=== PATIENT | female | born 1935 | race Caucasian/White ===

== ENCOUNTER 2016-09-15 01:11 | Inpatient (IN) | payer MEDICARE, OTHER ==
[2016-09-15 01:11] VITALS: BMI 25.0
[2016-09-15] MEDS ORDERED: Nitroglycerin 2% Ointment Foilpak UD TOP ONE (01:18)
--- NOTE | 2016-09-15 01:21 | C.PDOC ---
History Of Present Illness pt was brought in acute respiratory distress by bls , as no acls were available. patient diaphoretic, unable to provide any history. Time Seen by Provider: 09/15/16 01:21 History Per: Family History/Exam Limitations: clinical condition Onset/Duration Of Symptoms: Hrs Current Symptoms Are (Timing): Worse Initiating Event: Other Exacerbating Factor(s): Exertion, Laying Flat Current Respiratory Medications: See Home Med List Severity: Severe Pain Scale Rating Of: 10 Associated Symptoms: Anxiety. denies: Fever, Chills Reports Recently: Seen In ED, Treated By A Physician, Hospitalized Recent travel outside of the [place]: No Additional History Per: EMS, Family Past Medical History Reviewed: Historical Data, Nursing Documentation, Vital Signs Vital Signs: Last Vital Signs Temp Pulse 95 H 09/15/16 01:26 Resp 36 H 09/15/16 01:26 BP 214/84 H 09/15/16 01:26 Pulse Ox 86 L 09/15/16 01:26 - Medical History PMH: CHF, COPD, HTN Family History: States: No Known Family Hx - Social History Hx Alcohol Use: No Hx Substance Use: No Review Of Systems Review Of Systems: ROS cannot be obtained secondary to pt's inabilty to answer questions. Physical Exam - Physical Exam Appears: In Acute Distress Skin: Diaphoretic Head: Normacephalic Nose: Flaring Oral Mucosa: Moist Neck: Other (jvd) Chest: Deformity (left mastectomy scar) Cardiovascular: Rhythm Regular Respiratory: Decreased Breath Sounds, Rales (thruout) Gastrointestinal/Abdominal: Soft, No Tenderness, Distention Back: Normal Inspection Extremity: Pedal Edema Extremity: Bilateral: Atraumatic Neurological/Psych: Other (on bipap , in acute respiratory distress, unable to answer) Gait: Unable To Assess ED Course And Treatment - Laboratory Results Result Diagrams: 09/15/16 02:21 09/15/16 02:21 ECG: Interpreted By Me, Viewed By Me ECG Rhythm: Atrial Fibrillation, Nonspecific Changes Pulse Ox Interpretation: Abnormal (pt intubated) - Radiology CXR: Interpreted by Me, Viewed By Me CXR Interpretation: Yes: Infiltrates, Cardiomegaly, Other (acute pulm edema. poss rll infiltrate. ett in proper positionas is ng tube) Progress Note: due to her respiratory distress, pt was intubated, labs sent. family at bedside. spoke with dr swan - will admit the pt Critical Care Time - Critical Care Note Total Time (in mins): 45 Documented critical care: time excludes all time spent performing seperately billable procedures. Endotracheal Intubation - Endotracheal Intubation Intubated With ETT Size: 75 Blade Type Used: Curved Indication: Respiratory Failure Intubated: Orally Pre-Intubation Airway Assessment: Ventilated And Oxygenated, Appears To Have A difficult Airway Paralyzed With: Succinylcholine Post-Intubation Assessment: ETT Secured AT (cm): (24), Breath Sounds Equal Bilat , Placement Confirmed Via CXR, Color Change W/End Tidal CO2 Detector, Oxygen Saturation: (97) Disposition Discussed With Dr.: Derrick Jarvis Comment: accepted the pt on his service and took over the care at 3:06AM Doctor Will See Patient In The: ED Counseled Patient/Family Regarding: Studies Performed, Diagnosis - Disposition Disposition: HOSPITALIZED Disposition Time: 01:21 Condition: CRITICAL - POA Present On Arrival: Poor Glycemic Control - Clinical Impression Clinical Impression: Acute pulmonary edema, Respiratory failure Decision To Admit - Pt Status Changed To: Hospital Disposition Of: Inpatient - Admit Certification Admit to Inpatient:: After my assessment, the patient will require hospitalization for at least two midnights. This is because of the severity of symptoms shown, intensity of services needed, and/or the medical risk in this patient being treated as an outpatient. - InPatient: Physician Admission Certification: I certify that this patient requires 2 or more midnights of care for the following reason:: After my assessment, the patient will require hospitalization for at least two midnights. This is because of the severity of symptoms shown, intensity of services needed, and/or the medical risk in this patient being treated as an outpatient. - . Bed Request Type: ICU Admitting Physician: Derrick Jarvis Patient Diagnosis: Acute pulmonary edema, Respiratory failure
[2016-09-15] MEDS ORDERED: Propofol 10 mg/ml Inj (20 ML) ONE ×2 (01:22→03:17)
[2016-09-15] MEDS ORDERED: Nitroglycerin 2% Ointment Foilpak UD TOP STA (01:46)
[2016-09-15] MEDS ORDERED: Propofol 10 mg/ml Inj (20 ML) IV ONE ×3 (01:49→04:40)
[2016-09-15] MEDS ORDERED: Succinylcholine Chloride 20 mg/ml Syr (5 ml) IV STA (01:49)
[2016-09-15] MEDS: Albuterol-Ipratrop 3 mg / 0.5 (3 ml) UD IH SCH ×3 (02:00→02:38)
[2016-09-15] MEDS ORDERED: Albuterol-Ipratrop 3 mg / 0.5 (3 ml) UD ONE (02:09)
[2016-09-15] MEDS ORDERED: Piperacillin/Tazobact 3.375 gm 100 ML IVPB STA (02:27)
[2016-09-15 02:35] LABS: CHLORIDE 100 mmol/L (98-107)
[2016-09-15 02:36] LABS: POTASSIUM 4.1 mmol/L (3.6-5.2); SODIUM 140 mmol/L (132-148)
[2016-09-15 02:38] LABS: ALB/GLOB RATIO 1.3 (1.0-2.1); BILIRUBIN,TOTAL 0.4 mg/dL (0.2-1.3); CARBON DIOXIDE 20 mmol/L (22-30); GFR AFRICAN-AMERICAN 41
[2016-09-15 02:39] LABS: ALKALINE PHOSPHATASE 81 U/L (38-126); ALT/SGPT 15 U/L (9-52); AST/SGOT 26 U/L (14-36); BLOOD UREA NITROGEN 23 mg/dL (7-17); CALCIUM 9.1 mg/dl (8.6-10.4); GLUCOSE,RANDOM 275 mg/dL (65-105); MAGNESIUM 2.5 mg/dL (1.6-2.3)
[2016-09-15 02:45] LABS: BASO % 0.2 % (0.0-2.0); EOS # 0.2 K/uL (0.0-0.7); EOS % 2.3 % (0.0-4.0); HEMATOCRIT 40.8 % (34.0-47.0); LYMPH # 5.8 K/uL (1.0-4.3); LYMPH % 53.5 % (20.0-40.0); MEAN CORPUSCULAR HEMOGLOBIN 30.8 pg (27.0-31.0); MEAN CORPUSCULAR HGB CONC 31.5 g/dL (33.0-37.0); MEAN PLATELET VOLUME 10.2 fL (7.2-11.7); MONO # 0.6 K/uL (0.0-0.8); NRBC % 0.1 % (0.0-2.0); RED CELL DISTRIBUTION WIDTH 14.5 % (11.5-14.5)
[2016-09-15 02:46] LABS: MEAN CELL VOLUME 97.7 fL (81.0-99.0); WHITE BLOOD COUNT 10.8 K/uL (4.8-10.8)
[2016-09-15 02:58] LABS: ABG ALLEN TEST POS; ABG MECHANICAL RATE 16; ATERIAL BLOOD GAS PEEP 5; DRAW SITE RR
[2016-09-15 05:26] LABS: RBC URINE 7 /hpf (0-3); URINE BILIRUBIN NEGATIVE (NEGATIVE); URINE BLOOD 1+ (NEGATIVE); URINE COLOR Straw (YELLOW); URINE GLUCOSE (UA) NORMAL (Normal); URINE KETONE NEGATIVE (NEGATIVE); URINE LEUKOCYTE ESTERASE NEG Leu/uL (Negative); URINE PROTEIN NEGATIVE (NEGATIVE); URINE UROBILINOGEN NORMAL mg/dL (0.2-1.0); WBC URINE < 1 /hpf (0-5)
[2016-09-15] MEDS: Propofol 10 mg/ml Inj (100 ml) IV SCH ×2 (06:00→18:33)
[2016-09-15 06:48] LABS: BASO % 0.2 % (0.0-2.0); EOS % 0.2 % (0.0-4.0); HEMATOCRIT 38.4 % (34.0-47.0); LYMPH # 0.9 K/uL (1.0-4.3); LYMPH % 9.2 % (20.0-40.0); MEAN CELL VOLUME 94.2 fL (81.0-99.0); MEAN CORPUSCULAR HEMOGLOBIN 30.6 pg (27.0-31.0); MEAN CORPUSCULAR HGB CONC 32.5 g/dL (33.0-37.0); MEAN PLATELET VOLUME 9.7 fL (7.2-11.7); MONO # 0.4 K/uL (0.0-0.8); MONO % 3.7 % (0.0-10.0); PLATELET COUNT 209 K/uL (130-400); RED CELL DISTRIBUTION WIDTH 13.8 % (11.5-14.5)
[2016-09-15 06:54] LABS: POTASSIUM 4.5 mmol/L (3.6-5.2)
[2016-09-15 06:57] LABS: ALB/GLOB RATIO 1.3 (1.0-2.1); BILIRUBIN,TOTAL 0.4 mg/dL (0.2-1.3); MAGNESIUM 1.9 mg/dL (1.6-2.3); PHOSPHOROUS 5.2 mg/dL (2.5-4.5)
[2016-09-15 07:11] LABS: TROPONIN I 0.234 ng/mL (0.00-0.120)
[2016-09-15] MEDS ORDERED: (Novolog) Insulin Aspart, Recombinant 100 u/ml 10 ml vial SC SCH ×2 (07:30→09:31)
--- NOTE | 2016-09-15 08:45 | CP.PCM.CON ---
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 History is completed using EMR, as pt is intubated and no family is at bedside. According to EMS reports, family at scene reported pt awoke from sleep c/o of worsening SOB and inability to lie flat over 'last few days.' EMS notes pt with O2 saturation of 70%, systolic BP > 200, and wheezes/ rhonchi bilaterally. Pt was placed on CPAP by EMS and saturation improved to low 80s. Pt was intubated in the ED. PMH: Stroke (2003), Breast Ca (2013), HTN, DM, HLD, GERD, CHF Meds: Losartan 50mg, Meformin 850mg, Plavix 75mg, Letrozole 2.5mg (Breast CA), Omeprazole 20mg, Rosuvastatin 5mg, Carvedilol 10mg PSH: L mastectomy (2013) Hosp: 04/02: CHF FamHx: unremarkable SocHx: denies tob currently, former smoker (quit 30 yrs ago)/denies EtOH/ilicit drug use Review of Systems - Review of Systems Systems not reviewed;Unavailable: Altered Mental Status, Intubated Past Patient History - Past Medical History & Family History Past Medical History?: Yes - Past Social History Smoking Status: Former Smoker - CARDIAC Hx Cardiac Disorders: Yes Hx Congestive Heart Failure: Yes Hx Hypercholesterolemia: Yes Hx Hypertension: Yes - PULMONARY Hx Chronic Obstructive Pulmonary Disease (COPD): Yes - NEUROLOGICAL Hx Neurological Disorder: Yes HX Cerebrovascular Accident: Yes (2003 with L sided weakness) - HEENT Hx HEENT Problems: Yes Other/Comment: wears glasses for reading - ENDOCRINE/METABOLIC Hx Endocrine Disorders: Yes Hx Diabetes Mellitus Type 2: Yes - HEMATOLOGICAL/ONCOLOGICAL Hx Blood Disorders: No - INTEGUMENTARY Hx Dermatological Problems: No - MUSCULOSKELETAL/RHEUMATOLOGICAL Hx Musculoskeletal Disorders: Yes Hx Falls: Yes - GASTROINTESTINAL Hx Gastrointestinal Disorders: No - GENITOURINARY/GYNECOLOGICAL Hx Genitourinary Disorders: Yes Hx Incontinence: Yes - PSYCHIATRIC Hx Psychophysiologic Disorder: No Hx Substance Use: No - SURGICAL HISTORY Hx Surgeries: Yes Hx Mastectomy: Yes (2016) Other/Comment: R breast mastectomy - ANESTHESIA Hx Anesthesia: Yes Hx Anesthesia Reactions: No Hx Malignant Hyperthermia: No Has any member of the family had a problem w/ anesthesia?: No Meds Allergies/Adverse Reactions: Allergies Allergy/AdvReac Type Severity Reaction Status Date / Time No Known Allergies Allergy Verified 03/27/16 10:04 - Medications Medications: Current Medications Aspirin (Aspirin Chewable) 81 mg NG DAILY [facility] Carvedilol (Coreg) 3.125 mg NG DAILY [facility] Clopidogrel Bisulfate (Plavix) 75 mg NG DAILY [facility] Enoxaparin Sodium (Lovenox) 40 mg SC DAILY [facility] Famotidine (Pepcid) 20 mg IVP Q12 [facility] Furosemide (Lasix) 40 mg IVP DAILY [facility] Insulin Aspart (Novolog) 0 unit SC ACHS [facility] PRN Reason: Protocol Losartan Potassium (Cozaar) 50 mg PO DAILY [facility] Propofol (Diprivan) 100 mg IV TITR [facility] PRN Reason: Protocol Last Admin: 09/15/16 06:00 Dose: 100 mg Rosuvastatin Calcium (Crestor) 5 mg NG HS [facility] Spironolactone (Aldactone) 25 mg NG DAILY [facility] Physical Exam - Constitutional Appears: Chronically Ill - Head Exam Head Exam: ATRAUMATIC, NORMAL INSPECTION, NORMOCEPHALIC - Eye Exam Eye Exam: Normal appearance Pupil Exam: PERRL - ENT Exam ENT Exam: Mucous Membranes Moist - Neck Exam Neck exam: Positive for: Normal Inspection - Respiratory Exam Respiratory Exam: Decreased Breath Sounds, Rales. absent: Clear to Auscultation Bilateral, Wheezes, Respiratory Distress Additional comments: pt intubated - Cardiovascular Exam Cardiovascular Exam: REGULAR RHYTHM, JVD, +S1, +S2, Systolic Murmur - GI/Abdominal Exam GI & Abdominal Exam: Normal Bowel Sounds, Soft - Extremities Exam Extremities exam: Positive for: normal inspection, pedal pulses present - Neurological Exam Neurological exam: Alert Additional comments: pt intubated - Psychiatric Exam Psychiatric exam: Normal Affect - Skin Skin Exam: Dry, Normal Color, Warm Results - Vital Signs Recent Vital Signs: Last Vital Signs Temp 98.1 F 09/15/16 05:15 Pulse 76 09/15/16 08:10 Resp 18 09/15/16 08:10 BP 113/73 09/15/16 08:01 Pulse Ox 100 09/15/16 08:10 - Labs Result Diagrams: 09/15/16 06:32 09/15/16 06:33 Labs: Laboratory Results - last 24 hr 09/15/16 09/15/16 09/15/16 05:14 06:32 06:33 WBC 10.0 RBC 4.08 Hgb 12.5 Hct 38.4 MCV 94.2 D MCH 30.6 MCHC 32.5 L RDW 13.8 Plt Count 209 MPV 9.7 Neut % (Auto) 86.7 H Lymph % (Auto) 9.2 L Valencia % (Auto) 3.7 Eos % (Auto) 0.2 Baso % (Auto) 0.2 Neut # 8.7 H Lymph # 0.9 L Valencia # 0.4 Eos # 0.0 Baso # 0.0 Sodium 137 Potassium 4.5 Chloride 99 Carbon Dioxide 26 Anion Gap 16 BUN 31 H Creatinine 1.4 H Est GFR ( Amer) 44 Est GFR (Non-Af Amer) 36 Random Glucose 223 H Calcium 8.0 L Phosphorus 5.2 H Magnesium 1.9 Total Bilirubin 0.4 AST 53 H D ALT 31 Alkaline Phosphatase 77 Troponin I 0.2340 H* Total Protein 7.0 Albumin 4.0 Globulin 3.1 Albumin/Globulin Ratio 1.3 Urine Color Straw Urine Clarity Hazy Urine pH 5.0 Ur Specific Kimberly 1.006 Urine Protein Negative Urine Glucose (UA) Normal Urine Ketones Negative Urine Blood 1+ H Urine Nitrate Negative Urine Bilirubin Negative Urine Urobilinogen Normal Ur Leukocyte Esterase Neg Urine WBC (Auto) < 1 Urine RBC (Auto) 7 H Ur Squamous Epith Cells 1 Assessment & Plan - Assessment and Plan (Free Text) Assessment: 81 yo F with PMHx of HTN, DM, hyperlipidemia, CVA 2003, Breast cancer 2013 ( Left mastectomy) presenting with worsening shortness of breath. Pt intubated in ED. Plan: Neuro: Pt intubated and sedated - Propofol drip Hx of stroke ASA 81mg NG Daily Plavix 75mg NG Daily CV: Dr. Loya, Cardiology, help appreciated: - Stress test 01/2016: Showed normal perfusion with reduction in LVEF 43% : susicious for NICM - OPDX ECHO (05/2016): EF 35-40% - EKG read by Dr. Loya (NSR, competing PACs and junctional escapes) - Acute on chronic systolic HF, minimal inc in troponin may result from cardiomyopathy, as 01/2016 stress perfusion scan was normal - May consider AICD if LVEF <35% BNP: 2280 (previous admission: 4060) Troponin: 0.012 > 0.2340 - f/u ECHO Lasix 40mg IV daily Aldactone 25mg NG daily HTN Pt has been hypo/normotensive since admission Coreg 3.125mg NG Daily Cozaar 50mg PO Daily CAD ASA 81mg NG Daily Plavix 75mg NG Daily Crestor 5 mg NG HS Pulm: Worsening SOB, inability to lie flat x 3 days CXR (09/15/16): worsening, now severe, airspace opacification within the right lung with milder increased interstitial lung markings in the left lung, which may represent worsening edema and/or infiltrate. CT Chest (09/15/16): f/u results - f/u atypicals: chlamydia/GC RNA, Mycoplasma - f/u blood cultures Zosyn 2.25gm IV Q8H Acute respiratory failure Intubated, on MV Vent settings: Rate 16, FiO2: 60%, Peep: 5, TV 500 Endo: T2DM - accuchecks ACHS - ISS (low) - f/u A1C GI: NGT placed Tubefeedings: Diabetisource, Goal 50ml/hr Minimal increase in AST - monitor Renal/: CKD stage III BUN/Cr 17/06.4 - monitor Hyperphosphatemia - 5.2 on AM labs - Start Phos-lo ID: No leukocytosis, Afebrile Prophylaxis: Lovenox 40mg SC Daily Pepcid 20mg IV Q12H SCDs PT/OT <Yoel Branham S - Last Filed: 09/15/16 18:51> Meds - Medications Medications: Current Medications Aspirin (Aspirin Chewable) 81 mg NG DAILY [facility] Last Admin: 09/15/16 09:34 Dose: 81 mg Calcium Acetate (Phoslo) 667 mg PO BIDCC [facility] Last Admin: 09/15/16 18:02 Dose: 667 mg Carvedilol (Coreg) 3.125 mg NG DAILY [facility] Last Admin: 09/15/16 09:34 Dose: 3.125 mg Clopidogrel Bisulfate (Plavix) 75 mg NG DAILY [facility] Last Admin: 09/15/16 09:34 Dose: 75 mg Enoxaparin Sodium (Lovenox) 40 mg SC DAILY [facility] Last Admin: 09/15/16 09:34 Dose: 40 mg Famotidine (Pepcid) 20 mg IVP Q12 [facility] Last Admin: 09/15/16 11:00 Dose: 20 mg Furosemide (Lasix) 40 mg IVP DAILY [facility] Last Admin: 09/15/16 11:00 Dose: 40 mg Piperacillin Sod/Tazobactam Sod (Zosyn 2.25 Gm Iv Premix) 2.25 gm in 50 mls @ 100 mls/hr IVPB Q8H [facility] Last Admin: 09/15/16 18:30 Dose: 100 mls/hr Propofol (Diprivan) 1,000 mg in 100 mls @ 2.204 mls/hr IV .Q24H PRN; Protocol; 5 MCG/KG/MIN PRN Reason: TITRATE PER MD ORDER Insulin Aspart (Novolog) 0 unit SC Q6H [facility] PRN Reason: Protocol Last Admin: 09/15/16 18:01 Dose: 1 unit Losartan Potassium (Cozaar) 50 mg PO DAILY [facility] Last Admin: 09/15/16 09:34 Dose: 50 mg Rosuvastatin Calcium (Crestor) 5 mg NG HS [facility] Spironolactone (Aldactone) 25 mg NG DAILY [facility] Last Admin: 09/15/16 18:01 Dose: 25 mg Results - Vital Signs Recent Vital Signs: Last Vital Signs Temp 98.1 F 09/15/16 16:00 Pulse 69 09/15/16 17:00 Resp 19 09/15/16 17:00 BP 92/59 L 09/15/16 17:00 Pulse Ox 100 09/15/16 17:00 - Labs Result Diagrams: 09/15/16 06:32 09/15/16 06:33 Labs: Laboratory Results - last 24 hr 09/15/16 09/15/16 09/15/16 05:14 06:32 06:33 WBC 10.0 RBC 4.08 Hgb 12.5 Hct 38.4 MCV 94.2 D MCH 30.6 MCHC 32.5 L RDW 13.8 Plt Count 209 MPV 9.7 Neut % (Auto) 86.7 H Lymph % (Auto) 9.2 L Valencia % (Auto) 3.7 Eos % (Auto) 0.2 Baso % (Auto) 0.2 Neut # 8.7 H Lymph # 0.9 L Valencia # 0.4 Eos # 0.0 Baso # 0.0 Neutrophils % (Manual) 80 H Band Neutrophils % 6 H Lymphocytes % (Manual) 10 L Monocytes % (Manual) 4 Platelet Estimate Normal Polychromasia Slight Ovalocytes Slight Puncture Site pCO2 pO2 HCO3 ABG pH ABG Total CO2 ABG O2 Saturation ABG Base Excess ABG Hemoglobin ABG Carboxyhemoglobin POC ABG HHb (Measured) ABG Methemoglobin Onofre Test A-a O2 Difference Respiratory Index Hgb O2 Saturation Mechanical Rate FiO2 Tidal Volume PEEP Sodium 137 Potassium 4.5 Chloride 99 Carbon Dioxide 26 Anion Gap 16 BUN 31 H Creatinine 1.4 H Est GFR ( Amer) 44 Est GFR (Non-Af Amer) 36 POC Glucose (mg/dL) Random Glucose 223 H Calcium 8.0 L Phosphorus 5.2 H Magnesium 1.9 Total Bilirubin 0.4 AST 53 H D ALT 31 Alkaline Phosphatase 77 Troponin I 0.2340 H* Total Protein 7.0 Albumin 4.0 Globulin 3.1 Albumin/Globulin Ratio 1.3 Urine Color Straw Urine Clarity Hazy Urine pH 5.0 Ur Specific Kimberly 1.006 Urine Protein Negative Urine Glucose (UA) Normal Urine Ketones Negative Urine Blood 1+ H Urine Nitrate Negative Urine Bilirubin Negative Urine Urobilinogen Normal Ur Leukocyte Esterase Neg Urine WBC (Auto) < 1 Urine RBC (Auto) 7 H Ur Squamous Epith Cells 1 09/15/16 09/15/16 09/15/16 08:18 12:35 12:46 WBC RBC Hgb Hct MCV MCH MCHC RDW Plt Count MPV Neut % (Auto) Lymph % (Auto) Valencia % (Auto) Eos % (Auto) Baso % (Auto) Neut # Lymph # Valencia # Eos # Baso # Neutrophils % (Manual) Band Neutrophils % Lymphocytes % (Manual) Monocytes % (Manual) Platelet Estimate Polychromasia Ovalocytes Puncture Site Rra pCO2 40 pO2 251 H HCO3 25.9 ABG pH 7.42 ABG Total CO2 27.1 ABG O2 Saturation 99.0 H ABG Base Excess 1.3 ABG Hemoglobin 11.0 L ABG Carboxyhemoglobin 0.7 POC ABG HHb (Measured) 1.0 ABG Methemoglobin 1.4 Onofre Test Na A-a O2 Difference 412.0 Respiratory Index 1.6 Hgb O2 Saturation 96.8 Mechanical Rate 16 FiO2 100.0 Tidal Volume 500 PEEP 5 Sodium Potassium Chloride Carbon Dioxide Anion Gap BUN Creatinine Est GFR ( Amer) Est GFR (Non-Af Amer) POC Glucose (mg/dL) 200 H 183 H Random Glucose Calcium Phosphorus Magnesium Total Bilirubin AST ALT Alkaline Phosphatase Troponin I Total Protein Albumin Globulin Albumin/Globulin Ratio Urine Color Urine Clarity Urine pH Ur Specific Kimberly Urine Protein Urine Glucose (UA) Urine Ketones Urine Blood Urine Nitrate Urine Bilirubin Urine Urobilinogen Ur Leukocyte Esterase Urine WBC (Auto) Urine RBC (Auto) Ur Squamous Epith Cells 09/15/16 17:40 WBC RBC Hgb Hct MCV MCH MCHC RDW Plt Count MPV Neut % (Auto) Lymph % (Auto) Valencia % (Auto) Eos % (Auto) Baso % (Auto) Neut # Lymph # Valencia # Eos # Baso # Neutrophils % (Manual) Band Neutrophils % Lymphocytes % (Manual) Monocytes % (Manual) Platelet Estimate Polychromasia Ovalocytes Puncture Site pCO2 pO2 HCO3 ABG pH ABG Total CO2 ABG O2 Saturation ABG Base Excess ABG Hemoglobin ABG Carboxyhemoglobin POC ABG HHb (Measured) ABG Methemoglobin Onofre Test A-a O2 Difference Respiratory Index Hgb O2 Saturation Mechanical Rate FiO2 Tidal Volume PEEP Sodium Potassium Chloride Carbon Dioxide Anion Gap BUN Creatinine Est GFR ( Amer) Est GFR (Non-Af Amer) POC Glucose (mg/dL) 182 H Random Glucose Calcium Phosphorus Magnesium Total Bilirubin AST ALT Alkaline Phosphatase Troponin I Total Protein Albumin Globulin Albumin/Globulin Ratio Urine Color Urine Clarity Urine pH Ur Specific Kimberly Urine Protein Urine Glucose (UA) Urine Ketones Urine Blood Urine Nitrate Urine Bilirubin Urine Urobilinogen Ur Leukocyte Esterase Urine WBC (Auto) Urine RBC (Auto) Ur Squamous Epith Cells Attending/Attestation - Attestation I have personally seen and examined this patient.: Yes I have fully participated in the care of the patient.: Yes I have reviewed all pertinent clinical information: Yes Notes (Text): 09/15/16 18:47 Patient seen and examined. 81 yo F with PMHx of HTN, DM, hyperlipidemia, CVA 2003, Breast cancer 2013 ( Left mastectomy) presenting with worsening shortness of breath. Pt intubated in ED for CHF and possible right lung pneumonia Patient seen by cardiology Started on antibiotics and follow up culture and sensitivity Continue IV diuretics Start weaning from tomorrow
--- NOTE | 2016-09-15 09:05 | RAD ---
PROCEDURE: CHEST RADIOGRAPH, 1 VIEW HISTORY: Shortness of breath COMPARISON: 04/01/2016 FINDINGS: LUNGS: Endotracheal tube extending into the midthoracic trachea. NG tube extending into the stomach. Worsening now severe airspace opacification within the right lung with milder increased interstitial lung markings in the left lung which may represent worsening edema and or infiltrate. Clinical correlation. PLEURA: As above. CARDIOVASCULAR: Cardiomegaly. Calcification at the aortic knob. OSSEOUS STRUCTURES: No significant abnormalities. VISUALIZED UPPER ABDOMEN: Normal. OTHER FINDINGS: None. IMPRESSION: Endotracheal tube extending into the midthoracic trachea. NG tube extending into the stomach. Worsening now severe airspace opacification within the right lung with milder increased interstitial lung markings in the left lung which may represent worsening edema and or infiltrate. Clinical correlation.
[2016-09-15 09:15] LABS: NEUTROPHIL 80 % (50-75); TOTAL CELLS COUNTED 100
[2016-09-15] MEDS: Enoxaparin 40 mg Syringe SC SCH (09:34)
[2016-09-15] MEDS: Piperacill/Tazo 2.25gm in Dex 2.25 GM/50 ML BAG IVPB SCH ×2 (12:00→18:30)
[2016-09-15] MEDS: (Novolog) Insulin Aspart, Recombinant 100 u/ml 10 ml vial SC SCH ×2 (12:00→18:01)
--- NOTE | 2016-09-15 12:07 | RAD ---
PROCEDURE: CHEST RADIOGRAPH, 1 VIEW HISTORY: RESPIRATORY FAILURE COMPARISON: 09/15/2016 FINDINGS: LUNGS: Lines and tubes stable position. Persistent diffuse consolidative changes throughout the right lung and to a lesser extent the left lung suggestive for prominent edema and or infiltrate. PLEURA: As above. CARDIOVASCULAR: Cardiomegaly. Calcification at the aortic knob. OSSEOUS STRUCTURES: Degenerative changes in the spine and shoulders. VISUALIZED UPPER ABDOMEN: Normal. OTHER FINDINGS: None. IMPRESSION: No significant interval change.
--- NOTE | 2016-09-15 12:29 | CP.PCM.CON ---
History of Present Illness - History of Present Illness History of Present Illness: 81 y/o BIB EMS: acute pulmonary edema and intubated in ER. PMHX; CVA- L. sided weakness, HTN, DM, poor functional capacity (minimally active) last seen in office 08/05/16 with c/o SOB. Out patient echo had been reported as 35-40% 06/03/16 and CHF therapy was being optimized at the time. Stress test 01/2016: Showed normal perfusion with reduction in LVEF 43% : susicious for NICM PSHX: mastectomy, No CABG PSH: L mastectomy (2013) Hosp: no prior [facility] hospitalizations FamHx: unremarkable SocHx: denies tob currently, former smoker (quit 30 yrs ago)/denies EtOH/ilicit drug use Review of Systems - Review of Systems Systems not reviewed;Unavailable: Intubated Past Patient History - Past Medical History & Family History Past Medical History?: Yes - Past Social History Smoking Status: Never Smoked - CARDIAC Hx Cardiac Disorders: Yes Hx Congestive Heart Failure: Yes Hx Hypercholesterolemia: Yes Hx Hypertension: Yes - PULMONARY Hx Chronic Obstructive Pulmonary Disease (COPD): Yes - NEUROLOGICAL Hx Neurological Disorder: Yes HX Cerebrovascular Accident: Yes (2003 with L sided weakness) - HEENT Hx HEENT Problems: Yes Other/Comment: wears glasses for reading - ENDOCRINE/METABOLIC Hx Endocrine Disorders: Yes Hx Diabetes Mellitus Type 2: Yes - HEMATOLOGICAL/ONCOLOGICAL Hx Blood Disorders: No - INTEGUMENTARY Hx Dermatological Problems: No - MUSCULOSKELETAL/RHEUMATOLOGICAL Hx Musculoskeletal Disorders: Yes Hx Falls: Yes - GASTROINTESTINAL Hx Gastrointestinal Disorders: No - GENITOURINARY/GYNECOLOGICAL Hx Genitourinary Disorders: Yes Hx Incontinence: Yes - PSYCHIATRIC Hx Psychophysiologic Disorder: No Hx Substance Use: No - SURGICAL HISTORY Hx Surgeries: Yes Hx Mastectomy: Yes (2015) Other/Comment: R breast mastectomy - ANESTHESIA Hx Anesthesia: Yes Hx Anesthesia Reactions: No Hx Malignant Hyperthermia: No Has any member of the family had a problem w/ anesthesia?: No Meds Allergies/Adverse Reactions: Allergies Allergy/AdvReac Type Severity Reaction Status Date / Time No Known Allergies Allergy Verified 03/27/16 10:04 - Medications Medications: Current Medications Aspirin (Aspirin Chewable) 81 mg NG DAILY [facility] Last Admin: 09/15/16 09:34 Dose: 81 mg Carvedilol (Coreg) 3.125 mg NG DAILY [facility] Last Admin: 09/15/16 09:34 Dose: 3.125 mg Clopidogrel Bisulfate (Plavix) 75 mg NG DAILY [facility] Last Admin: 09/15/16 09:34 Dose: 75 mg Enoxaparin Sodium (Lovenox) 40 mg SC DAILY [facility] Last Admin: 09/15/16 09:34 Dose: 40 mg Famotidine (Pepcid) 20 mg IVP Q12 [facility] Furosemide (Lasix) 40 mg IVP DAILY [facility] Piperacillin Sod/Tazobactam Sod (Zosyn 2.25 Gm Iv Premix) 2.25 gm in 50 mls @ 100 mls/hr IVPB Q8H [facility] Insulin Aspart (Novolog) 0 unit SC Q6H [facility] PRN Reason: Protocol Losartan Potassium (Cozaar) 50 mg PO DAILY [facility] Last Admin: 09/15/16 09:34 Dose: 50 mg Propofol (Diprivan) 100 mg IV TITR [facility] PRN Reason: Protocol Last Admin: 09/15/16 06:00 Dose: 100 mg Rosuvastatin Calcium (Crestor) 5 mg NG HS [facility] Spironolactone (Aldactone) 25 mg NG DAILY [facility] Physical Exam - Constitutional Appears: Chronically Ill - Head Exam Head Exam: ATRAUMATIC, NORMAL INSPECTION, NORMOCEPHALIC - Eye Exam Eye Exam: Normal appearance, PERRL - Neck Exam Neck exam: Negative for: Tenderness, Thyromegaly - Respiratory Exam Respiratory Exam: Decreased Breath Sounds, Rales. absent: Wheezes - Cardiovascular Exam Cardiovascular Exam: REGULAR RHYTHM, JVD, RRR, +S1, +S2, Systolic Murmur. absent: Gallop - GI/Abdominal Exam GI & Abdominal Exam: Normal Bowel Sounds, Soft. absent: Organomegaly - Extremities Exam Extremities exam: Positive for: normal inspection, pedal pulses present. Negative for: pedal edema - Skin Skin Exam: Normal Color, Warm Results - Vital Signs Recent Vital Signs: Last Vital Signs Temp 98.9 F 09/15/16 08:00 Pulse 74 09/15/16 11:00 Resp 18 09/15/16 11:00 BP 111/69 09/15/16 11:00 Pulse Ox 100 09/15/16 11:00 - Labs Result Diagrams: 09/15/16 06:32 09/15/16 06:33 Labs: Laboratory Results - last 24 hr 09/15/16 09/15/16 09/15/16 05:14 06:32 06:33 WBC 10.0 RBC 4.08 Hgb 12.5 Hct 38.4 MCV 94.2 D MCH 30.6 MCHC 32.5 L RDW 13.8 Plt Count 209 MPV 9.7 Neut % (Auto) 86.7 H Lymph % (Auto) 9.2 L [place] % (Auto) 3.7 Eos % (Auto) 0.2 Baso % (Auto) 0.2 Neut # 8.7 H Lymph # 0.9 L [place] # 0.4 Eos # 0.0 Baso # 0.0 Neutrophils % (Manual) 80 H Band Neutrophils % 6 H Lymphocytes % (Manual) 10 L Monocytes % (Manual) 4 Platelet Estimate Normal Polychromasia Slight Ovalocytes Slight Sodium 137 Potassium 4.5 Chloride 99 Carbon Dioxide 26 Anion Gap 16 BUN 31 H Creatinine 1.4 H Est GFR ( Amer) 44 Est GFR (Non-Af Amer) 36 POC Glucose (mg/dL) Random Glucose 223 H Calcium 8.0 L Phosphorus 5.2 H Magnesium 1.9 Total Bilirubin 0.4 AST 53 H D ALT 31 Alkaline Phosphatase 77 Troponin I 0.2340 H* Total Protein 7.0 Albumin 4.0 Globulin 3.1 Albumin/Globulin Ratio 1.3 Urine Color Straw Urine Clarity Hazy Urine pH 5.0 Ur Specific [place] 1.006 Urine Protein Negative Urine Glucose (UA) Normal Urine Ketones Negative Urine Blood 1+ H Urine Nitrate Negative Urine Bilirubin Negative Urine Urobilinogen Normal Ur Leukocyte Esterase Neg Urine WBC (Auto) < 1 Urine RBC (Auto) 7 H Ur Squamous Epith Cells 1 09/15/16 08:18 WBC RBC Hgb Hct MCV MCH MCHC RDW Plt Count MPV Neut % (Auto) Lymph % (Auto) [place] % (Auto) Eos % (Auto) Baso % (Auto) Neut # Lymph # [place] # Eos # Baso # Neutrophils % (Manual) Band Neutrophils % Lymphocytes % (Manual) Monocytes % (Manual) Platelet Estimate Polychromasia Ovalocytes Sodium Potassium Chloride Carbon Dioxide Anion Gap BUN Creatinine Est GFR ( Amer) Est GFR (Non-Af Amer) POC Glucose (mg/dL) 200 H Random Glucose Calcium Phosphorus Magnesium Total Bilirubin AST ALT Alkaline Phosphatase Troponin I Total Protein Albumin Globulin Albumin/Globulin Ratio Urine Color Urine Clarity Urine pH Ur Specific [place] Urine Protein Urine Glucose (UA) Urine Ketones Urine Blood Urine Nitrate Urine Bilirubin Urine Urobilinogen Ur Leukocyte Esterase Urine WBC (Auto) Urine RBC (Auto) Ur Squamous Epith Cells - EKG Data EKG Interpreted by: Myself (Sinus rhythm; competing PAcs and junctional escapes; ) Assessment & Plan - Assessment and Plan (Free Text) Assessment: 81 y/o with acute repiratory failure * CXRAY findings with congestion and prominent hazyness of the R. lung lance suggests PNA or effusion * CKD stage 3 * ECHO done: will f/u results * Labs: Normal H/H, No leukocytosis, minimal inc in AST * Acute on chronic systolic HF with inc NTPBNP and minimal inc in troponin may be related to cardiomyopathy as 01/2016 stress perfusion scan was normal Cont current Rx and vent support Cont CHF therapy and diuresis patient may need consideration of AICD if LVEF remains <35%; In addition progression of CAD can also be considered DVT prophylaxis.
[2016-09-15 13:00] LABS: ABG MECHANICAL RATE 16; ARTERIAL BLOOD HGB O2 SAT 96.8 % (95.0-98.0); ATERIAL BLOOD GAS PEEP 5; CARBOXYHEMOGLOBIN 0.7 % (0.5-1.5); DRAW SITE RRA; METHEMOGLOBIN 1.4 % (0.0-3.0)
--- NOTE | 2016-09-15 17:06 | CT ---
PROCEDURE: CT Chest without contrast HISTORY: f/u opacification in right lung, pulm edema COMPARISON: 03/27/2016 TECHNIQUE: Contiguous axial images were obtained through the chest without intravenous contrast enhancement. Sagittal and coronal reconstructions were performed. Radiation dose (DLP): 773 mGy-cm. This CT exam was performed using one or more of the following dose reduction techniques: Automated exposure control, adjustment of the mA and/or kV according to patient size, and/or use of iterative reconstruction technique. FINDINGS: LUNGS: New large area of opacification/ consolidation in the right upper lobe probably representing a large pneumonia. Moderate sized bibasilar infiltrates. MEDIASTINUM: Unremarkable thoracic aorta. No aneurysm. Normal sized heart. Main pulmonary artery unremarkable. No vascular congestion. No lymphadenopathy. PLEURA: No pleural fluid. No pneumothorax. BONES: No fracture. No destructive lesion. UPPER ABDOMEN: Grossly unremarkable. OTHER FINDINGS: ETT and NGT in place. IMPRESSION: Moderate bibasilar infiltrates. Large right upper lobe area of consolidation probably representing a pneumonia. Recommend followup.
[2016-09-15] MEDS ORDERED: Propofol 10 mg/ml 1,000 MG/100 ML VIAL IV PRN (18:36)
[2016-09-15 19:07] LABS: LEGIONELLA AG URINE NEGATIVE (NEGATIVE)
--- NOTE | 2016-09-15 22:06 | CP.PCM.HP ---
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 History is completed using EMR, as pt is intubated and no family is at bedside. According to EMS reports, family at scene reported pt awoke from sleep c/o of worsening SOB and inability to lie flat over 'last few days.' EMS notes pt with O2 saturation of 70%, systolic BP > 200, and wheezes/rhonchi bilaterally. Pt was placed on CPAP by EMS and saturation improved to low 80s. Pt was intubated in the ED. PMH: Stroke (2003), Breast Ca (2013), HTN, DM, HLD, GERD, CHF Meds: Losartan 50mg, Meformin 850mg, Plavix 75mg, Letrozole 2.5mg (Breast CA), Omeprazole 20mg, Rosuvastatin 5mg, Carvedilol 10mg PSH: L mastectomy (2013) Hosp: 04/02: CHF FamHx: unremarkable SocHx: denies tob currently, former smoker (quit 30 yrs ago)/denies EtOH/ilicit drug use Review of Systems - Review of Systems Systems not reviewed;Unavailable: Acuity of Condition - Constitutional Constitutional: Fatigue, Lethargy, Malaise - EENT Nose/Mouth/Throat: absent: As Per HPI, Epistaxis, Nasal Congestion, Nasal Discharge, Nasal Obstruction, Nasal Trauma, Nose Pain, Post Nasal Drip, Sinus Pain, Sinus Pressure, Bleeding Gums, Change in Voice, Dental Pain, Dry Mouth, Dysphagia, Halitosis, Hoarsness, Lip Swelling, Mouth Lesions, Mouth Pain, Odynophagia, Sore Throat, Throat Swelling, Tongue Swelling, Facial Pain, Neck Pain, Neck Mass, Other - Cardiovascular Cardiovascular: Dyspnea, Syncope - Respiratory Respiratory: Dyspnea - Gastrointestinal Gastrointestinal: absent: As Per HPI, Abdominal Pain, Belching, Bloating, Change in Bowel Habits, Change in Stool Character, Coffee Ground Emesis, Constipation, Cramping, Diarrhea, Dyspepsia, Dysphagia, Early Satiety, Excessive Flatus, Fecal Incontinence, Heartburn, Hematemesis, Hematochezia, Loose Stools, Melena, Nausea, Odynophagia, Temesmus, Vomiting, Other Past Patient History - Past Medical History & Family History Past Medical History?: Yes - Past Social History Smoking Status: Former Smoker - CARDIAC Hx Cardiac Disorders: Yes Hx Congestive Heart Failure: Yes Hx Hypercholesterolemia: Yes Hx Hypertension: Yes - PULMONARY Hx Chronic Obstructive Pulmonary Disease (COPD): Yes - NEUROLOGICAL Hx Neurological Disorder: Yes HX Cerebrovascular Accident: Yes (2004 with L sided weakness) - HEENT Hx HEENT Problems: Yes Other/Comment: wears glasses for reading - ENDOCRINE/METABOLIC Hx Endocrine Disorders: Yes Hx Diabetes Mellitus Type 2: Yes - HEMATOLOGICAL/ONCOLOGICAL Hx Blood Disorders: No - INTEGUMENTARY Hx Dermatological Problems: No - MUSCULOSKELETAL/RHEUMATOLOGICAL Hx Musculoskeletal Disorders: Yes Hx Falls: Yes - GASTROINTESTINAL Hx Gastrointestinal Disorders: No - GENITOURINARY/GYNECOLOGICAL Hx Genitourinary Disorders: Yes Hx Incontinence: Yes - PSYCHIATRIC Hx Psychophysiologic Disorder: No Hx Substance Use: No - SURGICAL HISTORY Hx Surgeries: Yes Hx Mastectomy: Yes (2015) Other/Comment: R breast mastectomy - ANESTHESIA Hx Anesthesia: Yes Hx Anesthesia Reactions: No Hx Malignant Hyperthermia: No Has any member of the family had a problem w/ anesthesia?: No Meds Allergies/Adverse Reactions: Allergies Allergy/AdvReac Type Severity Reaction Status Date / Time No Known Allergies Allergy Verified 03/27/16 10:04 Physical Exam - Constitutional Appears: Chronically Ill Additional comments: pt in resp distress on mechanical ventilator - Eye Exam Eye Exam: EOMI, Normal appearance - Respiratory Exam Respiratory Exam: Decreased Breath Sounds, Rales, Rhonchi - Cardiovascular Exam Cardiovascular Exam: REGULAR RHYTHM Results - Vital Signs Recent Vital Signs: Last Vital Signs Temp 98.8 F 09/15/16 21:00 Pulse 76 09/15/16 20:50 Resp 16 09/15/16 20:50 BP 104/54 L 09/15/16 20:50 Pulse Ox 100 09/15/16 20:50 - Labs Result Diagrams: 09/15/16 06:32 09/15/16 06:33 Labs: Laboratory Results - last 24 hr 09/15/16 09/15/16 09/15/16 05:14 06:32 06:33 WBC 10.0 RBC 4.08 Hgb 12.5 Hct 38.4 MCV 94.2 D MCH 30.6 MCHC 32.5 L RDW 13.8 Plt Count 209 MPV 9.7 Neut % (Auto) 86.7 H Lymph % (Auto) 9.2 L [place] % (Auto) 3.7 Eos % (Auto) 0.2 Baso % (Auto) 0.2 Neut # 8.7 H Lymph # 0.9 L [place] # 0.4 Eos # 0.0 Baso # 0.0 Neutrophils % (Manual) 80 H Band Neutrophils % 6 H Lymphocytes % (Manual) 10 L Monocytes % (Manual) 4 Platelet Estimate Normal Polychromasia Slight Ovalocytes Slight Puncture Site pCO2 pO2 HCO3 ABG pH ABG Total CO2 ABG O2 Saturation ABG Base Excess ABG Hemoglobin ABG Carboxyhemoglobin POC ABG HHb (Measured) ABG Methemoglobin Onofre Test A-a O2 Difference Respiratory Index Hgb O2 Saturation Mechanical Rate FiO2 Tidal Volume PEEP Sodium 137 Potassium 4.5 Chloride 99 Carbon Dioxide 26 Anion Gap 16 BUN 31 H Creatinine 1.4 H Est GFR ( Amer) 44 Est GFR (Non-Af Amer) 36 POC Glucose (mg/dL) Random Glucose 223 H Calcium 8.0 L Phosphorus 5.2 H Magnesium 1.9 Total Bilirubin 0.4 AST 53 H D ALT 31 Alkaline Phosphatase 77 Troponin I 0.2340 H* Total Protein 7.0 Albumin 4.0 Globulin 3.1 Albumin/Globulin Ratio 1.3 Urine Color Straw Urine Clarity Hazy Urine pH 5.0 Ur Specific [place] 1.006 Urine Protein Negative Urine Glucose (UA) Normal Urine Ketones Negative Urine Blood 1+ H Urine Nitrate Negative Urine Bilirubin Negative Urine Urobilinogen Normal Ur Leukocyte Esterase Neg Urine WBC (Auto) < 1 Urine RBC (Auto) 7 H Ur Squamous Epith Cells 1 Ur L.pneumophila Ag Mycoplasma pneumon IgM 09/15/16 09/15/16 09/15/16 08:18 12:35 12:46 WBC RBC Hgb Hct MCV MCH MCHC RDW Plt Count MPV Neut % (Auto) Lymph % (Auto) [place] % (Auto) Eos % (Auto) Baso % (Auto) Neut # Lymph # [place] # Eos # Baso # Neutrophils % (Manual) Band Neutrophils % Lymphocytes % (Manual) Monocytes % (Manual) Platelet Estimate Polychromasia Ovalocytes Puncture Site Rra pCO2 40 pO2 251 H HCO3 25.9 ABG pH 7.42 ABG Total CO2 27.1 ABG O2 Saturation 99.0 H ABG Base Excess 1.3 ABG Hemoglobin 11.0 L ABG Carboxyhemoglobin 0.7 POC ABG HHb (Measured) 1.0 ABG Methemoglobin 1.4 Onofre Test Na A-a O2 Difference 412.0 Respiratory Index 1.6 Hgb O2 Saturation 96.8 Mechanical Rate 16 FiO2 100.0 Tidal Volume 500 PEEP 5 Sodium Potassium Chloride Carbon Dioxide Anion Gap BUN Creatinine Est GFR ( Amer) Est GFR (Non-Af Amer) POC Glucose (mg/dL) 200 H 183 H Random Glucose Calcium Phosphorus Magnesium Total Bilirubin AST ALT Alkaline Phosphatase Troponin I Total Protein Albumin Globulin Albumin/Globulin Ratio Urine Color Urine Clarity Urine pH Ur Specific [place] Urine Protein Urine Glucose (UA) Urine Ketones Urine Blood Urine Nitrate Urine Bilirubin Urine Urobilinogen Ur Leukocyte Esterase Urine WBC (Auto) Urine RBC (Auto) Ur Squamous Epith Cells Ur L.pneumophila Ag Mycoplasma pneumon IgM 09/15/16 09/15/16 09/15/16 17:40 17:45 19:12 WBC RBC Hgb Hct MCV MCH MCHC RDW Plt Count MPV Neut % (Auto) Lymph % (Auto) [place] % (Auto) Eos % (Auto) Baso % (Auto) Neut # Lymph # [place] # Eos # Baso # Neutrophils % (Manual) Band Neutrophils % Lymphocytes % (Manual) Monocytes % (Manual) Platelet Estimate Polychromasia Ovalocytes Puncture Site pCO2 pO2 HCO3 ABG pH ABG Total CO2 ABG O2 Saturation ABG Base Excess ABG Hemoglobin ABG Carboxyhemoglobin POC ABG HHb (Measured) ABG Methemoglobin Onofre Test A-a O2 Difference Respiratory Index Hgb O2 Saturation Mechanical Rate FiO2 Tidal Volume PEEP Sodium Potassium Chloride Carbon Dioxide Anion Gap BUN Creatinine Est GFR ( Amer) Est GFR (Non-Af Amer) POC Glucose (mg/dL) 182 H Random Glucose Calcium Phosphorus Magnesium Total Bilirubin AST ALT Alkaline Phosphatase Troponin I 0.2340 H* Total Protein Albumin Globulin Albumin/Globulin Ratio Urine Color Urine Clarity Urine pH Ur Specific [place] Urine Protein Urine Glucose (UA) Urine Ketones Urine Blood Urine Nitrate Urine Bilirubin Urine Urobilinogen Ur Leukocyte Esterase Urine WBC (Auto) Urine RBC (Auto) Ur Squamous Epith Cells Ur L.pneumophila Ag Negative Mycoplasma pneumon IgM Negative Assessment & Plan (1) Acute pulmonary edema Status: Acute (2) Respiratory failure Status: Acute (3) CHF, acute Status: Acute (4) Pneumonia Status: Acute
[2016-09-16] MEDS: (Novolog) Insulin Aspart, Recombinant 100 u/ml 10 ml vial SC SCH ×4 (00:17→17:16)
--- NOTE | 2016-09-16 04:25 | CARD ---
APPROVED REPORT EXAM: Two-dimensional and M-mode echocardiogram with Doppler and color Doppler. Other Information Quality : GoodRhythm : NSR RISK FACTORS Hypertension Hyperlipidemia Diabetes M-Mode DIMENSIONS RVDd1.66 (2.1-3.2cm)Left Atrium (MM)3.51 (2.5-4.0cm) IVSd1.14 (0.7-1.1cm)Aortic Root2.42 (2.2-3.7cm) LVDd5.42 (4.0-5.6cm)Aortic Cusp Exc.1.13 (1.5-2.0cm) PWd1.81 (0.7-1.1cm)FS (%) 9 % LVDs4.94 (2.0-3.8cm)LVEF (%)19 (>50%) Aortic Valve AoV Peak Hdmpjlle560.9cm/Surjit Peak GR.17mmHgAI P 1/2 [id number] Mitral Valve MV E Wwqgdszk12.7cm/sMV A Ngdnfqdr678.9cm/sE/A ratio0.4 TDI E/Lateral E'0.0E/Medial E'0.0 Tricuspid Valve TR Peak [id number]/sTR Peak Gr.[id number] LEFT VENTRICLE The left ventricle is normal size. There is mild concentric left ventricular hypertrophy. Left ventricle systolic function is severely impaired. The Ejection Fraction is 20-25%. There is severe global hypokinesis of the left ventricle. Tissue Doppler imaging reveals abnormal left ventricular diastolic dysfunction. RIGHT VENTRICLE The right ventricle is normal size. There is normal right ventricular wall thickness. Systolic function is severely reduced. ATRIA The left atrium size is normal. The right atrium size is normal. The interatrial septum is intact with no evidence for an atrial septal defect. AORTIC VALVE The aortic valve is normal in structure. There is mild aortic regurgitation. There is no aortic valvular stenosis. There is no aortic valvular vegetation. MITRAL VALVE The mitral valve is normal in structure. There is no evidence of mitral valve prolapse. There is no mitral valve stenosis. Mitral regurgitation is mild. TRICUSPID VALVE The tricuspid valve is normal in structure. There is trace tricuspid regurgitation. Right ventricular systolic pressure is estimated at less than 30 mmHg. There is no pulmonary hypertension. PULMONIC VALVE The pulmonic valve is not well visualized. There is mild pulmonic valvular regurgitation. GREAT VESSELS The aortic root is normal in size. PERICARDIAL EFFUSION There is no significant pericardial effusion. <Conclusion> Left ventricle systolic function is severely impaired. The Ejection Fraction is 20-25%. Hypertensive heart disease. Diastolic dysfunction. There is mild aortic regurgitation. Mitral regurgitation is mild. There is trace tricuspid regurgitation. There is no pulmonary hypertension. There is mild pulmonic valvular regurgitation.
[2016-09-16] MEDS: Piperacill/Tazo 2.25gm in Dex 2.25 GM/50 ML BAG IVPB SCH ×3 (04:28→18:30)
[2016-09-16 05:41] LABS: ABG ALLEN TEST POS; ABG MECHANICAL RATE 16; ARTERIAL BLOOD HGB O2 SAT 94.8 % (95.0-98.0); ATERIAL BLOOD GAS PEEP 5; CARBOXYHEMOGLOBIN 1.1 % (0.5-1.5); DRAW SITE RR; HHB 3.3 % (0.0-5.0); METHEMOGLOBIN 0.9 % (0.0-3.0)
[2016-09-16 06:41] LABS: BASO % 0.2 % (0.0-2.0); EOS # 0.1 K/uL (0.0-0.7); EOS % 0.9 % (0.0-4.0); HEMATOCRIT 31.7 % (34.0-47.0); LYMPH # 1.8 K/uL (1.0-4.3); LYMPH % 18.3 % (20.0-40.0); MEAN CELL VOLUME 92.7 fL (81.0-99.0); MEAN CORPUSCULAR HEMOGLOBIN 31.2 pg (27.0-31.0); MEAN CORPUSCULAR HGB CONC 33.7 g/dL (33.0-37.0); MEAN PLATELET VOLUME 9.8 fL (7.2-11.7); MONO # 0.5 K/uL (0.0-0.8); RED CELL DISTRIBUTION WIDTH 13.8 % (11.5-14.5)
[2016-09-16 06:50] LABS: POTASSIUM 3.8 mmol/L (3.6-5.2)
[2016-09-16 06:52] LABS: ALB/GLOB RATIO 1.2 (1.0-2.1); BILIRUBIN,TOTAL 0.6 mg/dL (0.2-1.3); PHOSPHOROUS 3.2 mg/dL (2.5-4.5); TOTAL PROTEIN 6.2 g/dL (6.3-8.3)
[2016-09-16 06:53] LABS: CALCIUM 7.9 mg/dl (8.6-10.4)
[2016-09-16] MEDS: Enoxaparin 40 mg Syringe SC SCH ×2 (09:12→10:03)
--- NOTE | 2016-09-16 09:28 | RAD ---
HISTORY: intubated COMPARISON: 09/15/2016 FINDINGS: LUNGS: Endotracheal tube somewhat low lying approximately 1.3 centimeters above the [place]. Additional lines and tubes in stable position. Moderate venous congestion. PLEURA: As above. CARDIOVASCULAR: Cardiomegaly. OSSEOUS STRUCTURES: Degenerative changes in the spine and shoulders. VISUALIZED UPPER ABDOMEN: Normal. OTHER FINDINGS: None. IMPRESSION: Endotracheal tube somewhat low lying approximately 1.3 centimeters above the [place]. Additional lines and tubes in stable position. Moderate venous congestion.
--- NOTE | 2016-09-16 12:52 | CP.PCM.PN ---
Subjective - Date & Time of Evaluation Date of Evaluation: 09/16/16 Time of Evaluation: 12:50 Objective - Vital Signs/Intake and Output Vital Signs (last 24 hours): Temp Pulse Resp BP Pulse Ox 98.8 F 70 17 121/72 100 09/16/16 08:00 09/16/16 11:00 09/16/16 11:00 09/16/16 11:00 09/16/16 11:00 Intake and Output: 09/16/16 09/16/16 06:59 18:59 Intake Total 167.9 122.8 Output Total 720 95 Balance -552.1 27.8 - Medications Medications: Current Medications Aspirin (Aspirin Chewable) 81 mg NG DAILY [facility] Last Admin: 09/16/16 10:02 Dose: 81 mg Calcium Acetate (Phoslo) 667 mg PO BIDCC [facility] Last Admin: 09/16/16 09:00 Dose: 667 mg Carvedilol (Coreg) 3.125 mg NG DAILY [facility] Last Admin: 09/16/16 09:14 Dose: Not Given Clopidogrel Bisulfate (Plavix) 75 mg NG DAILY [facility] Last Admin: 09/16/16 10:03 Dose: 75 mg Enoxaparin Sodium (Lovenox) 40 mg SC DAILY [facility] Last Admin: 09/16/16 10:03 Dose: 40 mg Famotidine (Pepcid) 20 mg IVP Q12 [facility] Last Admin: 09/16/16 09:15 Dose: 20 mg Furosemide (Lasix) 40 mg IVP DAILY [facility] Last Admin: 09/16/16 09:13 Dose: 40 mg Piperacillin Sod/Tazobactam Sod (Zosyn 2.25 Gm Iv Premix) 2.25 gm in 50 mls @ 100 mls/hr IVPB Q8H [facility] Last Admin: 09/16/16 11:04 Dose: 100 mls/hr Propofol (Diprivan) 1,000 mg in 100 mls @ 2.204 mls/hr IV .Q24H PRN; Protocol; 5 MCG/KG/MIN PRN Reason: TITRATE PER MD ORDER Last Titration: 09/16/16 02:21 Dose: 7 mcg/kg/min, 3.086 mls/hr Insulin Aspart (Novolog) 0 unit SC Q6H [facility] PRN Reason: Protocol Last Admin: 05/02/17 07:15 Dose: 2 unit Losartan Potassium (Cozaar) 50 mg PO DAILY [facility] Last Admin: 09/16/16 09:14 Dose: Not Given Rosuvastatin Calcium (Crestor) 5 mg NG HS [facility] Last Admin: 09/15/16 22:06 Dose: 5 mg Spironolactone (Aldactone) 25 mg NG DAILY [facility] Last Admin: 09/16/16 10:04 Dose: Not Given - Labs Labs: 09/16/16 06:29 09/16/16 06:29 PT 11.3 SECONDS (9.7-12.2) 09/15/16 02:21 INR 1.0 09/15/16 02:21 APTT 28 SECONDS (21-34) 09/15/16 02:21 Assessment and Plan - Assessment and Plan (Free Text) Assessment: 81 y/o with acute repiratory failure * CXRAY images viewed by me findings with congestion and prominent hazyness of the R. lung lance suggests PNA * CKD stage 3 * ECHO images viewed by me shows severe LV dysfunction, but Stage I diastolic dysfunction suggests a chuy left atrial pressure * Labs: Normal H/H, No leukocytosis, minimal inc in AST * Acute on chronic systolic HF with inc NTPBNP and minimal inc in troponin may be related to cardiomyopathy Cont current Rx and vent support Overall clinical picture points to infection as opposed to decompensated CHF DVT prophylaxis.
--- NOTE | 2016-09-16 15:22 | CP.CCUPN ---
<Bala Pathak - Last Filed: 09/16/16 15:18> CCU Subjective - Physician Review Subjective (Free Text): 09/16/16 15:18 Pt seen and examined at bedside. Pt intubated, but more aware and responsive today. Tolerated CPAP trial well today, and will attempt extubation. Full ROS unavailable at this time due to intubation, but when asked if she had any pain, pt shook her head 'no'. Critical Care Time Spent (in minutes): 40 CCU Objective - Vital Signs / Intake & Output Vital Signs (Last 4 hours): Vital Signs Temp Pulse Resp BP Pulse Ox 09/16/16 15:00 72 17 118/62 100 09/16/16 14:00 71 16 123/68 100 09/16/16 13:00 73 18 105/62 100 09/16/16 12:00 98.4 F 67 19 98/53 L 100 Intake and Output (Last 8hrs): Intake & Output 09/16/16 09/16/16 09/16/16 06:59 14:59 22:59 Intake Total 113.6 126.0 0 Output Total 390 95 Balance -276.4 31.0 0 Weight 167 lb Intake: IV 20 Intake, IV Amount 23.6 26.0 Right Antecubital 23.6 26.0 Tube Feeding 70 100 0 Output: Urine 390 95 Urethral (Strange) 390 95 - Physical Exam Physical Exam Limitations: Positive for: Altered Mental Status Head: Positive for: Atraumatic, Normocephalic Pupils: Positive for: PERRL Extroacular Muscles: Positive for: EOMI Conjunctiva: Positive for: Normal Mouth: Positive for: Moist Mucous Membranes Neck: Positive for: JVD Respiratory/Chest: Positive for: Decreased Breath Sounds. Negative for: Respiratory Distress, Wheezes Cardiovascular: Positive for: Regular Rate and Rhythm, Murmurs, Normal S1, S2 Abdomen: Positive for: Normal Bowel Sounds. Negative for: Distention Upper Extremity: Positive for: Normal Inspection, NORMAL PULSES Lower Extremity: Positive for: Normal Inspection, NORMAL PULSES Neurological: Negative for: Speech Normal Skin: Positive for: Warm, Dry Psychiatric: Positive for: Alert - Medications Active Medications: Active Medications Generic Name Dose Route Start Last Admin Trade Name Freq PRN Reason Stop Dose Admin Aspirin 81 mg 09/15/16 10:00 09/16/16 10:02 Aspirin Chewable NG 81 mg DAILY ANTHONY Administration Calcium Acetate 667 mg 09/15/16 18:00 09/16/16 09:00 Phoslo PO 667 mg BIDCC ANTHONY Administration Carvedilol 3.125 mg 09/15/16 10:00 09/16/16 09:14 Coreg NG Not Given DAILY ANTHONY Clopidogrel Bisulfate 75 mg 09/15/16 10:00 09/16/16 10:03 Plavix NG 75 mg DAILY ANTHONY Administration Enoxaparin Sodium 40 mg 09/15/16 10:00 09/16/16 10:03 Lovenox SC 40 mg DAILY ANTHONY Administration Famotidine 20 mg 09/15/16 10:00 09/16/16 09:15 Pepcid IVP 20 mg Q12 ANTHONY Administration Furosemide 40 mg 09/15/16 10:00 09/16/16 09:13 Lasix IVP 40 mg DAILY ANTHONY Administration Piperacillin Sod/Tazobactam Sod 2.25 gm in 50 mls @ 100 mls/hr 09/15/16 11:30 09/16/16 11:04 Zosyn 2.25 Gm Iv Premix IVPB 100 mls/hr Q8H ANTHONY Administration Propofol 1,000 mg in 100 mls @ 2.204 mls/hr 09/15/16 18:36 09/16/16 02:21 Diprivan IV 7 mcg/kg/min .Q24H PRN 3.086 mls/hr TITRATE PER MD ORDER Titration Protocol 5 MCG/KG/MIN Insulin Aspart 0 unit 09/15/16 12:00 09/16/16 12:49 Novolog SC 1 unit Q6H ANTHONY Administration Protocol Losartan Potassium 50 mg 09/15/16 10:00 09/16/16 09:14 Cozaar PO Not Given DAILY ANTHONY Rosuvastatin Calcium 5 mg 09/15/16 22:00 09/15/16 22:06 Crestor NG 5 mg HS ANTHONY Administration Spironolactone 25 mg 09/15/16 16:15 09/16/16 10:04 Aldactone NG Not Given DAILY [facility] - Patient Studies Lab Studies: Microbiology Studies 09/15/16 06:02 MRSA Culture (Admit) - Final Nose MRSA NOT DETECTED Lab Studies 09/16/16 09/16/16 09/16/16 Range/Units 11:50 07:02 06:56 WBC (4.8-10.8) K/uL RBC (3.80-5.20) Mil/uL Hgb (11.0-16.0) g/dL Hct (34.0-47.0) % MCV (81.0-99.0) fL MCH (27.0-31.0) pg MCHC (33.0-37.0) g/dL RDW (11.5-14.5) % Plt Count (130-400) K/uL MPV (7.2-11.7) fL Neut % (Auto) (50.0-75.0) % Lymph % (Auto) (20.0-40.0) % [place] % (Auto) (0.0-10.0) % Eos % (Auto) (0.0-4.0) % Baso % (Auto) (0.0-2.0) % Neut # (1.8-7.0) K/uL Lymph # (1.0-4.3) K/uL [place] # (0.0-0.8) K/uL Eos # (0.0-0.7) K/uL Baso # (0.0-0.2) K/uL Puncture Site pCO2 (35-45) mm/Hg pO2 (80-100) mm/Hg HCO3 (21-28) mmol/L ABG pH (7.35-7.45) ABG Total CO2 (22-28) mmol/L ABG O2 Saturation (95-98) % ABG Base Excess (-2.0-3.0) mmol/L ABG Hemoglobin (11.7-17.4) g/dL ABG Carboxyhemoglobin (0.5-1.5) % POC ABG HHb (Measured) (0.0-5.0) % ABG Methemoglobin (0.0-3.0) % Onofre Test A-a O2 Difference mm/Hg Respiratory Index Hgb O2 Saturation (95.0-98.0) % Mechanical Rate FiO2 % Tidal Volume PEEP Sodium (132-148) mmol/L Potassium (3.6-5.2) mmol/L Chloride (98-107) mmol/L Carbon Dioxide (22-30) mmol/L Anion Gap (10-20) BUN (7-17) mg/dL Creatinine (0.7-1.2) MG/DL Est GFR ( Amer) Est GFR (Non-Af Amer) POC Glucose (mg/dL) 167 H 201 H (65-110) mg/dL Random Glucose (65-105) mg/dL Hemoglobin A1c (4.2-6.5) % Calcium (8.6-10.4) mg/dl Phosphorus (2.5-4.5) mg/dL Magnesium (1.6-2.3) mg/dL Total Bilirubin (0.2-1.3) mg/dL AST (14-36) U/L ALT (9-52) U/L Alkaline Phosphatase (38-126) U/L Troponin I 0.1480 H* (0.00-0.120) ng/mL Total Protein (6.3-8.3) g/dL Albumin (3.5-5.0) g/dL Globulin (2.2-3.9) gm/dL Albumin/Globulin Ratio (1.0-2.1) Ur L.pneumophila Ag (NEGATIVE) Mycoplasma pneumon IgM (NEGATIVE) 09/16/16 09/16/16 09/16/16 Range/Units 06:29 06:29 06:29 WBC 10.0 (4.8-10.8) K/uL RBC 3.42 L (3.80-5.20) Mil/uL Hgb 10.7 L (11.0-16.0) g/dL Hct 31.7 L (34.0-47.0) % MCV 92.7 (81.0-99.0) fL MCH 31.2 H (27.0-31.0) pg MCHC 33.7 (33.0-37.0) g/dL RDW 13.8 (11.5-14.5) % Plt Count 164 (130-400) K/uL MPV 9.8 (7.2-11.7) fL Neut % (Auto) 75.6 H (50.0-75.0) % Lymph % (Auto) 18.3 L (20.0-40.0) % [place] % (Auto) 5.0 (0.0-10.0) % Eos % (Auto) 0.9 (0.0-4.0) % Baso % (Auto) 0.2 (0.0-2.0) % Neut # 7.6 H (1.8-7.0) K/uL Lymph # 1.8 (1.0-4.3) K/uL [place] # 0.5 (0.0-0.8) K/uL Eos # 0.1 (0.0-0.7) K/uL Baso # 0.0 (0.0-0.2) K/uL Puncture Site pCO2 (35-45) mm/Hg pO2 (80-100) mm/Hg HCO3 (21-28) mmol/L ABG pH (7.35-7.45) ABG Total CO2 (22-28) mmol/L ABG O2 Saturation (95-98) % ABG Base Excess (-2.0-3.0) mmol/L ABG Hemoglobin (11.7-17.4) g/dL ABG Carboxyhemoglobin (0.5-1.5) % POC ABG HHb (Measured) (0.0-5.0) % ABG Methemoglobin (0.0-3.0) % Onofre Test A-a O2 Difference mm/Hg Respiratory Index Hgb O2 Saturation (95.0-98.0) % Mechanical Rate FiO2 % Tidal Volume PEEP Sodium 138 (132-148) mmol/L Potassium 3.8 (3.6-5.2) mmol/L Chloride 102 (98-107) mmol/L Carbon Dioxide 26 (22-30) mmol/L Anion Gap 14 (10-20) BUN 29 H (7-17) mg/dL Creatinine 1.4 H (0.7-1.2) MG/DL Est GFR ( Amer) 44 Est GFR (Non-Af Amer) 36 POC Glucose (mg/dL) (65-110) mg/dL Random Glucose 157 H (65-105) mg/dL Hemoglobin A1c 7.3 H (4.2-6.5) % Calcium 7.9 L (8.6-10.4) mg/dl Phosphorus 3.2 (2.5-4.5) mg/dL Magnesium 2.0 (1.6-2.3) mg/dL Total Bilirubin 0.6 (0.2-1.3) mg/dL AST 30 (14-36) U/L ALT 25 (9-52) U/L Alkaline Phosphatase 58 (38-126) U/L Troponin I (0.00-0.120) ng/mL Total Protein 6.2 L (6.3-8.3) g/dL Albumin 3.4 L (3.5-5.0) g/dL Globulin 2.8 (2.2-3.9) gm/dL Albumin/Globulin Ratio 1.2 (1.0-2.1) Ur L.pneumophila Ag (NEGATIVE) Mycoplasma pneumon IgM (NEGATIVE) 09/16/16 09/16/16 09/15/16 Range/Units 05:11 00:03 19:12 WBC (4.8-10.8) K/uL RBC (3.80-5.20) Mil/uL Hgb (11.0-16.0) g/dL Hct (34.0-47.0) % MCV (81.0-99.0) fL MCH (27.0-31.0) pg MCHC (33.0-37.0) g/dL RDW (11.5-14.5) % Plt Count (130-400) K/uL MPV (7.2-11.7) fL Neut % (Auto) (50.0-75.0) % Lymph % (Auto) (20.0-40.0) % [place] % (Auto) (0.0-10.0) % Eos % (Auto) (0.0-4.0) % Baso % (Auto) (0.0-2.0) % Neut # (1.8-7.0) K/uL Lymph # (1.0-4.3) K/uL [place] # (0.0-0.8) K/uL Eos # (0.0-0.7) K/uL Baso # (0.0-0.2) K/uL Puncture Site Rr pCO2 40 (35-45) mm/Hg pO2 71 L (80-100) mm/Hg HCO3 26.4 (21-28) mmol/L ABG pH 7.43 (7.35-7.45) ABG Total CO2 27.7 (22-28) mmol/L ABG O2 Saturation 96.6 (95-98) % ABG Base Excess 2.0 (-2.0-3.0) mmol/L ABG Hemoglobin 10.9 L (11.7-17.4) g/dL ABG Carboxyhemoglobin 1.1 (0.5-1.5) % POC ABG HHb (Measured) 3.3 (0.0-5.0) % ABG Methemoglobin 0.9 (0.0-3.0) % Onofre Test Pos A-a O2 Difference 164.0 mm/Hg Respiratory Index 2.3 Hgb O2 Saturation 94.8 L (95.0-98.0) % Mechanical Rate 16 FiO2 40.0 % Tidal Volume 500 PEEP 5 Sodium (132-148) mmol/L Potassium (3.6-5.2) mmol/L Chloride (98-107) mmol/L Carbon Dioxide (22-30) mmol/L Anion Gap (10-20) BUN (7-17) mg/dL Creatinine (0.7-1.2) MG/DL Est GFR ( Amer) Est GFR (Non-Af Amer) POC Glucose (mg/dL) 179 H (65-110) mg/dL Random Glucose (65-105) mg/dL Hemoglobin A1c (4.2-6.5) % Calcium (8.6-10.4) mg/dl Phosphorus (2.5-4.5) mg/dL Magnesium (1.6-2.3) mg/dL Total Bilirubin (0.2-1.3) mg/dL AST (14-36) U/L ALT (9-52) U/L Alkaline Phosphatase (38-126) U/L Troponin I 0.2340 H* (0.00-0.120) ng/mL Total Protein (6.3-8.3) g/dL Albumin (3.5-5.0) g/dL Globulin (2.2-3.9) gm/dL Albumin/Globulin Ratio (1.0-2.1) Ur L.pneumophila Ag (NEGATIVE) Mycoplasma pneumon IgM (NEGATIVE) 09/15/16 09/15/16 Range/Units 17:45 17:40 WBC (4.8-10.8) K/uL RBC (3.80-5.20) Mil/uL Hgb (11.0-16.0) g/dL Hct (34.0-47.0) % MCV (81.0-99.0) fL MCH (27.0-31.0) pg MCHC (33.0-37.0) g/dL RDW (11.5-14.5) % Plt Count (130-400) K/uL MPV (7.2-11.7) fL Neut % (Auto) (50.0-75.0) % Lymph % (Auto) (20.0-40.0) % [place] % (Auto) (0.0-10.0) % Eos % (Auto) (0.0-4.0) % Baso % (Auto) (0.0-2.0) % Neut # (1.8-7.0) K/uL Lymph # (1.0-4.3) K/uL [place] # (0.0-0.8) K/uL Eos # (0.0-0.7) K/uL Baso # (0.0-0.2) K/uL Puncture Site pCO2 (35-45) mm/Hg pO2 (80-100) mm/Hg HCO3 (21-28) mmol/L ABG pH (7.35-7.45) ABG Total CO2 (22-28) mmol/L ABG O2 Saturation (95-98) % ABG Base Excess (-2.0-3.0) mmol/L ABG Hemoglobin (11.7-17.4) g/dL ABG Carboxyhemoglobin (0.5-1.5) % POC ABG HHb (Measured) (0.0-5.0) % ABG Methemoglobin (0.0-3.0) % Onofre Test A-a O2 Difference mm/Hg Respiratory Index Hgb O2 Saturation (95.0-98.0) % Mechanical Rate FiO2 % Tidal Volume PEEP Sodium (132-148) mmol/L Potassium (3.6-5.2) mmol/L Chloride (98-107) mmol/L Carbon Dioxide (22-30) mmol/L Anion Gap (10-20) BUN (7-17) mg/dL Creatinine (0.7-1.2) MG/DL Est GFR ( Amer) Est GFR (Non-Af Amer) POC Glucose (mg/dL) 182 H (65-110) mg/dL Random Glucose (65-105) mg/dL Hemoglobin A1c (4.2-6.5) % Calcium (8.6-10.4) mg/dl Phosphorus (2.5-4.5) mg/dL Magnesium (1.6-2.3) mg/dL Total Bilirubin (0.2-1.3) mg/dL AST (14-36) U/L ALT (9-52) U/L Alkaline Phosphatase (38-126) U/L Troponin I (0.00-0.120) ng/mL Total Protein (6.3-8.3) g/dL Albumin (3.5-5.0) g/dL Globulin (2.2-3.9) gm/dL Albumin/Globulin Ratio (1.0-2.1) Ur L.pneumophila Ag Negative (NEGATIVE) Mycoplasma pneumon IgM Negative (NEGATIVE) Laboratory Results - last 24 hr 09/15/16 09/15/16 09/15/16 17:40 17:45 19:12 WBC RBC Hgb Hct MCV MCH MCHC RDW Plt Count MPV Neut % (Auto) Lymph % (Auto) [place] % (Auto) Eos % (Auto) Baso % (Auto) Neut # Lymph # [place] # Eos # Baso # Puncture Site pCO2 pO2 HCO3 ABG pH ABG Total CO2 ABG O2 Saturation ABG Base Excess ABG Hemoglobin ABG Carboxyhemoglobin POC ABG HHb (Measured) ABG Methemoglobin Onofre Test A-a O2 Difference Respiratory Index Hgb O2 Saturation Mechanical Rate FiO2 Tidal Volume PEEP Sodium Potassium Chloride Carbon Dioxide Anion Gap BUN Creatinine Est GFR ( Amer) Est GFR (Non-Af Amer) POC Glucose (mg/dL) 182 H Random Glucose Hemoglobin A1c Calcium Phosphorus Magnesium Total Bilirubin AST ALT Alkaline Phosphatase Troponin I 0.2340 H* Total Protein Albumin Globulin Albumin/Globulin Ratio Ur L.pneumophila Ag Negative Mycoplasma pneumon IgM Negative 09/16/16 09/16/16 09/16/16 00:03 05:11 06:29 WBC 10.0 RBC 3.42 L Hgb 10.7 L Hct 31.7 L MCV 92.7 MCH 31.2 H MCHC 33.7 RDW 13.8 Plt Count 164 MPV 9.8 Neut % (Auto) 75.6 H Lymph % (Auto) 18.3 L [place] % (Auto) 5.0 Eos % (Auto) 0.9 Baso % (Auto) 0.2 Neut # 7.6 H Lymph # 1.8 [place] # 0.5 Eos # 0.1 Baso # 0.0 Puncture Site Rr pCO2 40 pO2 71 L HCO3 26.4 ABG pH 7.43 ABG Total CO2 27.7 ABG O2 Saturation 96.6 ABG Base Excess 2.0 ABG Hemoglobin 10.9 L ABG Carboxyhemoglobin 1.1 POC ABG HHb (Measured) 3.3 ABG Methemoglobin 0.9 Onofre Test Pos A-a O2 Difference 164.0 Respiratory Index 2.3 Hgb O2 Saturation 94.8 L Mechanical Rate 16 FiO2 40.0 Tidal Volume 500 PEEP 5 Sodium Potassium Chloride Carbon Dioxide Anion Gap BUN Creatinine Est GFR ( Amer) Est GFR (Non-Af Amer) POC Glucose (mg/dL) 179 H Random Glucose Hemoglobin A1c Calcium Phosphorus Magnesium Total Bilirubin AST ALT Alkaline Phosphatase Troponin I Total Protein Albumin Globulin Albumin/Globulin Ratio Ur L.pneumophila Ag Mycoplasma pneumon IgM 09/16/16 09/16/16 09/16/16 06:29 06:29 06:56 WBC RBC Hgb Hct MCV MCH MCHC RDW Plt Count MPV Neut % (Auto) Lymph % (Auto) [place] % (Auto) Eos % (Auto) Baso % (Auto) Neut # Lymph # [place] # Eos # Baso # Puncture Site pCO2 pO2 HCO3 ABG pH ABG Total CO2 ABG O2 Saturation ABG Base Excess ABG Hemoglobin ABG Carboxyhemoglobin POC ABG HHb (Measured) ABG Methemoglobin Onofre Test A-a O2 Difference Respiratory Index Hgb O2 Saturation Mechanical Rate FiO2 Tidal Volume PEEP Sodium 138 Potassium 3.8 Chloride 102 Carbon Dioxide 26 Anion Gap 14 BUN 29 H Creatinine 1.4 H Est GFR ( Amer) 44 Est GFR (Non-Af Amer) 36 POC Glucose (mg/dL) Random Glucose 157 H Hemoglobin A1c 7.3 H Calcium 7.9 L Phosphorus 3.2 Magnesium 2.0 Total Bilirubin 0.6 AST 30 ALT 25 Alkaline Phosphatase 58 Troponin I 0.1480 H* Total Protein 6.2 L Albumin 3.4 L Globulin 2.8 Albumin/Globulin Ratio 1.2 Ur L.pneumophila Ag Mycoplasma pneumon IgM 09/16/16 09/16/16 07:02 11:50 WBC RBC Hgb Hct MCV MCH MCHC RDW Plt Count MPV Neut % (Auto) Lymph % (Auto) [place] % (Auto) Eos % (Auto) Baso % (Auto) Neut # Lymph # [place] # Eos # Baso # Puncture Site pCO2 pO2 HCO3 ABG pH ABG Total CO2 ABG O2 Saturation ABG Base Excess ABG Hemoglobin ABG Carboxyhemoglobin POC ABG HHb (Measured) ABG Methemoglobin Onofre Test A-a O2 Difference Respiratory Index Hgb O2 Saturation Mechanical Rate FiO2 Tidal Volume PEEP Sodium Potassium Chloride Carbon Dioxide Anion Gap BUN Creatinine Est GFR ( Amer) Est GFR (Non-Af Amer) POC Glucose (mg/dL) 201 H 167 H Random Glucose Hemoglobin A1c Calcium Phosphorus Magnesium Total Bilirubin AST ALT Alkaline Phosphatase Troponin I Total Protein Albumin Globulin Albumin/Globulin Ratio Ur L.pneumophila Ag Mycoplasma pneumon IgM Fingerstick Blood Sugar Results: 167 Review of Systems - Review of Systems Systems not reviewed;Unavailable: Intubated Assessment/Plan - Assessment and Plan (Free Text) Assessment: 81 yo F with PMHx of HTN, DM, hyperlipidemia, CVA 2003, Breast cancer 2013 ( Left mastectomy) presenting with worsening shortness of breath. Pt intubated in ED. CT Chest indicating pneumonia on right. Plan: Neuro: Pt intubated and sedated, but will wean with goal of extubation later today - Propofol drip Hx of stroke ASA 81mg NG Daily Plavix 75mg NG Daily CV: CHF Dr. Loya, Cardiology, help appreciated: - Stress test 01/2016: Showed normal perfusion with reduction in LVEF 43% : suspicious for NICM - OPDX ECHO (05/2016): EF 35-40% - EKG read by Dr. Loya (NSR, competing PACs and junctional escapes) - Acute on chronic systolic HF, minimal inc in troponin may result from cardiomyopathy, as 01/2016 stress perfusion scan was normal - May consider AICD if LVEF <35% BNP: 2280 (previous admission: 4060) Troponin: 0.012 > 0.2340 - believed CHF related - ECHO (09/15/16): LV systolic function severely limited, EF 20-25%, HTN heart disease, diastolic dysfunction, Mild aortic regurgitation, No pulmonary HTN, mild valvular regurgitation (see full report) Lasix 40mg IV daily Aldactone 25mg NG daily HTN Pt has been hypo/normotensive since admission Coreg 3.125mg NG Daily Cozaar 50mg PO Daily CAD ASA 81mg NG Daily Plavix 75mg NG Daily Crestor 5 mg NG HS Pulm: Worsening SOB, inability to lie flat x 3 days Aspiration PNA - Due to pt being afebrile, central nature of infiltrate believed aspiration CXR (09/15/16): worsening, now severe, airspace opacification within the right lung with milder increased interstitial lung markings in the left lung, which may represent worsening edema and/or infiltrate. CXR (09/16/16): Moderate venous congestion. Low lying ETT 1.3 cm above [place]. ( see full report) CT Chest (09/15/16): Moderate bibasilar infiltrates. Large right upper lobe area of consolidation, probably pneumonia. Recommend follow up. (see full report) - atypical serology: negative - Blood culture (09/15/16): No growth for 24 hours x 2 - MRSA (09/15/16): Not detected Zosyn 2.25gm IV Q8H Acute respiratory failure Intubated, on MV Vent settings: Rate 16, FiO2: 40%, Peep: 5, TV 500 ABG: acidosis improving Will attempt extubation today Endo: T2DM - accuchecks ACHS - ISS (low) - A1C: 7.3 GI: NGT placed Extubated, Discontinue Tubefeedings Minimal increase in AST - monitor Renal/: CKD stage III BUN/Cr 17/06.4 - monitor Hyperphosphatemia - resolved - d/c phos-lo ID: No leukocytosis, Afebrile Prophylaxis: Lovenox 40mg SC Daily Pepcid 20mg IV Q12H SCDs PT/OT <Jae Escobedo - Last Filed: 09/16/16 19:14> CCU Objective - Vital Signs / Intake & Output Vital Signs (Last 4 hours): Vital Signs Temp Pulse Resp BP Pulse Ox 09/16/16 18:00 76 18 111/62 100 09/16/16 17:00 74 19 127/72 100 09/16/16 16:00 98.3 F 72 18 124/70 100 Intake and Output (Last 8hrs): Intake & Output 09/16/16 09/16/16 09/16/16 06:59 14:59 22:59 Intake Total 113.6 126.0 0 Output Total 390 405 240 Balance -276.4 -279.0 -240 Weight 167 lb Intake: IV 20 Intake, IV Amount 23.6 26.0 Right Antecubital 23.6 26.0 Tube Feeding 70 100 0 Output: Urine 390 405 240 Urethral (Strange) 390 405 240 - Medications Active Medications: Active Medications Generic Name Dose Route Start Last Admin Trade Name Freq PRN Reason Stop Dose Admin Aspirin 81 mg 09/15/16 10:00 09/16/16 10:02 Aspirin Chewable NG 81 mg DAILY ANTHONY Administration Carvedilol 3.125 mg 09/15/16 10:00 09/16/16 09:14 Coreg NG Not Given DAILY [facility] Clopidogrel Bisulfate 75 mg 09/15/16 10:00 09/16/16 10:03 Plavix NG 75 mg DAILY ANTHONY Administration Enoxaparin Sodium 40 mg 09/15/16 10:00 09/16/16 10:03 Lovenox SC 40 mg DAILY ANTHONY Administration Famotidine 20 mg 09/16/16 22:00 Pepcid IVP Q12 ANTHONY Furosemide 40 mg 09/15/16 10:00 09/16/16 09:13 Lasix IVP 40 mg DAILY [facility] Administration Piperacillin Sod/Tazobactam Sod 2.25 gm in 50 mls @ 100 mls/hr 09/15/16 11:30 09/16/16 18:30 Zosyn 2.25 Gm Iv Premix IVPB 100 mls/hr Q8H [facility] Administration Insulin Aspart 0 unit 09/15/16 12:00 09/16/16 17:16 Novolog SC Not Given Q6H [facility] Protocol Losartan Potassium 50 mg 09/15/16 10:00 09/16/16 09:14 Cozaar PO Not Given DAILY [facility] Rosuvastatin Calcium 5 mg 09/15/16 22:00 09/15/16 22:06 Crestor NG 5 mg HS [facility] Administration Spironolactone 25 mg 09/15/16 16:15 09/16/16 10:04 Aldactone NG Not Given DAILY [facility] - Patient Studies Lab Studies: Microbiology Studies 09/15/16 06:02 MRSA Culture (Admit) - Final Nose MRSA NOT DETECTED Lab Studies 09/16/16 09/16/16 09/16/16 Range/Units 16:48 11:50 07:02 WBC (4.8-10.8) K/uL RBC (3.80-5.20) Mil/uL Hgb (11.0-16.0) g/dL Hct (34.0-47.0) % MCV (81.0-99.0) fL MCH (27.0-31.0) pg MCHC (33.0-37.0) g/dL RDW (11.5-14.5) % Plt Count (130-400) K/uL MPV (7.2-11.7) fL Neut % (Auto) (50.0-75.0) % Lymph % (Auto) (20.0-40.0) % [place] % (Auto) (0.0-10.0) % Eos % (Auto) (0.0-4.0) % Baso % (Auto) (0.0-2.0) % Neut # (1.8-7.0) K/uL Lymph # (1.0-4.3) K/uL [place] # (0.0-0.8) K/uL Eos # (0.0-0.7) K/uL Baso # (0.0-0.2) K/uL Puncture Site pCO2 (35-45) mm/Hg pO2 (80-100) mm/Hg HCO3 (21-28) mmol/L ABG pH (7.35-7.45) ABG Total CO2 (22-28) mmol/L ABG O2 Saturation (95-98) % ABG Base Excess (-2.0-3.0) mmol/L ABG Hemoglobin (11.7-17.4) g/dL ABG Carboxyhemoglobin (0.5-1.5) % POC ABG HHb (Measured) (0.0-5.0) % ABG Methemoglobin (0.0-3.0) % Onofre Test A-a O2 Difference mm/Hg Respiratory Index Hgb O2 Saturation (95.0-98.0) % Mechanical Rate FiO2 % Tidal Volume PEEP Sodium (132-148) mmol/L Potassium (3.6-5.2) mmol/L Chloride (98-107) mmol/L Carbon Dioxide (22-30) mmol/L Anion Gap (10-20) BUN (7-17) mg/dL Creatinine (0.7-1.2) MG/DL Est GFR ( Amer) Est GFR (Non-Af Amer) POC Glucose (mg/dL) 137 H 167 H 201 H (65-110) mg/dL Random Glucose (65-105) mg/dL Hemoglobin A1c (4.2-6.5) % Calcium (8.6-10.4) mg/dl Phosphorus (2.5-4.5) mg/dL Magnesium (1.6-2.3) mg/dL Total Bilirubin (0.2-1.3) mg/dL AST (14-36) U/L ALT (9-52) U/L Alkaline Phosphatase (38-126) U/L Troponin I (0.00-0.120) ng/mL Total Protein (6.3-8.3) g/dL Albumin (3.5-5.0) g/dL Globulin (2.2-3.9) gm/dL Albumin/Globulin Ratio (1.0-2.1) 09/16/16 09/16/16 09/16/16 Range/Units 06:56 06:29 06:29 WBC (4.8-10.8) K/uL RBC (3.80-5.20) Mil/uL Hgb (11.0-16.0) g/dL Hct (34.0-47.0) % MCV (81.0-99.0) fL MCH (27.0-31.0) pg MCHC (33.0-37.0) g/dL RDW (11.5-14.5) % Plt Count (130-400) K/uL MPV (7.2-11.7) fL Neut % (Auto) (50.0-75.0) % Lymph % (Auto) (20.0-40.0) % [place] % (Auto) (0.0-10.0) % Eos % (Auto) (0.0-4.0) % Baso % (Auto) (0.0-2.0) % Neut # (1.8-7.0) K/uL Lymph # (1.0-4.3) K/uL [place] # (0.0-0.8) K/uL Eos # (0.0-0.7) K/uL Baso # (0.0-0.2) K/uL Puncture Site pCO2 (35-45) mm/Hg pO2 (80-100) mm/Hg HCO3 (21-28) mmol/L ABG pH (7.35-7.45) ABG Total CO2 (22-28) mmol/L ABG O2 Saturation (95-98) % ABG Base Excess (-2.0-3.0) mmol/L ABG Hemoglobin (11.7-17.4) g/dL ABG Carboxyhemoglobin (0.5-1.5) % POC ABG HHb (Measured) (0.0-5.0) % ABG Methemoglobin (0.0-3.0) % Onofre Test A-a O2 Difference mm/Hg Respiratory Index Hgb O2 Saturation (95.0-98.0) % Mechanical Rate FiO2 % Tidal Volume PEEP Sodium 138 (132-148) mmol/L Potassium 3.8 (3.6-5.2) mmol/L Chloride 102 (98-107) mmol/L Carbon Dioxide 26 (22-30) mmol/L Anion Gap 14 (10-20) BUN 29 H (7-17) mg/dL Creatinine 1.4 H (0.7-1.2) MG/DL Est GFR ( Amer) 44 Est GFR (Non-Af Amer) 36 POC Glucose (mg/dL) (65-110) mg/dL Random Glucose 157 H (65-105) mg/dL Hemoglobin A1c 7.3 H (4.2-6.5) % Calcium 7.9 L (8.6-10.4) mg/dl Phosphorus 3.2 (2.5-4.5) mg/dL Magnesium 2.0 (1.6-2.3) mg/dL Total Bilirubin 0.6 (0.2-1.3) mg/dL AST 30 (14-36) U/L ALT 25 (9-52) U/L Alkaline Phosphatase 58 (38-126) U/L Troponin I 0.1480 H* (0.00-0.120) ng/mL Total Protein 6.2 L (6.3-8.3) g/dL Albumin 3.4 L (3.5-5.0) g/dL Globulin 2.8 (2.2-3.9) gm/dL Albumin/Globulin Ratio 1.2 (1.0-2.1) 09/16/16 09/16/16 09/16/16 Range/Units 06:29 05:11 00:03 WBC 10.0 (4.8-10.8) K/uL RBC 3.42 L (3.80-5.20) Mil/uL Hgb 10.7 L (11.0-16.0) g/dL Hct 31.7 L (34.0-47.0) % MCV 92.7 (81.0-99.0) fL MCH 31.2 H (27.0-31.0) pg MCHC 33.7 (33.0-37.0) g/dL RDW 13.8 (11.5-14.5) % Plt Count 164 (130-400) K/uL MPV 9.8 (7.2-11.7) fL Neut % (Auto) 75.6 H (50.0-75.0) % Lymph % (Auto) 18.3 L (20.0-40.0) % [place] % (Auto) 5.0 (0.0-10.0) % Eos % (Auto) 0.9 (0.0-4.0) % Baso % (Auto) 0.2 (0.0-2.0) % Neut # 7.6 H (1.8-7.0) K/uL Lymph # 1.8 (1.0-4.3) K/uL [place] # 0.5 (0.0-0.8) K/uL Eos # 0.1 (0.0-0.7) K/uL Baso # 0.0 (0.0-0.2) K/uL Puncture Site Rr pCO2 40 (35-45) mm/Hg pO2 71 L (80-100) mm/Hg HCO3 26.4 (21-28) mmol/L ABG pH 7.43 (7.35-7.45) ABG Total CO2 27.7 (22-28) mmol/L ABG O2 Saturation 96.6 (95-98) % ABG Base Excess 2.0 (-2.0-3.0) mmol/L ABG Hemoglobin 10.9 L (11.7-17.4) g/dL ABG Carboxyhemoglobin 1.1 (0.5-1.5) % POC ABG HHb (Measured) 3.3 (0.0-5.0) % ABG Methemoglobin 0.9 (0.0-3.0) % Onofre Test Pos A-a O2 Difference 164.0 mm/Hg Respiratory Index 2.3 Hgb O2 Saturation 94.8 L (95.0-98.0) % Mechanical Rate 16 FiO2 40.0 % Tidal Volume 500 PEEP 5 Sodium (132-148) mmol/L Potassium (3.6-5.2) mmol/L Chloride (98-107) mmol/L Carbon Dioxide (22-30) mmol/L Anion Gap (10-20) BUN (7-17) mg/dL Creatinine (0.7-1.2) MG/DL Est GFR ( Amer) Est GFR (Non-Af Amer) POC Glucose (mg/dL) 179 H (65-110) mg/dL Random Glucose (65-105) mg/dL Hemoglobin A1c (4.2-6.5) % Calcium (8.6-10.4) mg/dl Phosphorus (2.5-4.5) mg/dL Magnesium (1.6-2.3) mg/dL Total Bilirubin (0.2-1.3) mg/dL AST (14-36) U/L ALT (9-52) U/L Alkaline Phosphatase (38-126) U/L Troponin I (0.00-0.120) ng/mL Total Protein (6.3-8.3) g/dL Albumin (3.5-5.0) g/dL Globulin (2.2-3.9) gm/dL Albumin/Globulin Ratio (1.0-2.1) 09/15/16 Range/Units 19:12 WBC (4.8-10.8) K/uL RBC (3.80-5.20) Mil/uL Hgb (11.0-16.0) g/dL Hct (34.0-47.0) % MCV (81.0-99.0) fL MCH (27.0-31.0) pg MCHC (33.0-37.0) g/dL RDW (11.5-14.5) % Plt Count (130-400) K/uL MPV (7.2-11.7) fL Neut % (Auto) (50.0-75.0) % Lymph % (Auto) (20.0-40.0) % [place] % (Auto) (0.0-10.0) % Eos % (Auto) (0.0-4.0) % Baso % (Auto) (0.0-2.0) % Neut # (1.8-7.0) K/uL Lymph # (1.0-4.3) K/uL [place] # (0.0-0.8) K/uL Eos # (0.0-0.7) K/uL Baso # (0.0-0.2) K/uL Puncture Site pCO2 (35-45) mm/Hg pO2 (80-100) mm/Hg HCO3 (21-28) mmol/L ABG pH (7.35-7.45) ABG Total CO2 (22-28) mmol/L ABG O2 Saturation (95-98) % ABG Base Excess (-2.0-3.0) mmol/L ABG Hemoglobin (11.7-17.4) g/dL ABG Carboxyhemoglobin (0.5-1.5) % POC ABG HHb (Measured) (0.0-5.0) % ABG Methemoglobin (0.0-3.0) % On[place]re Test A-a O2 Difference mm/Hg Respiratory Index Hgb O2 Saturation (95.0-98.0) % Mechanical Rate FiO2 % Tidal Volume PEEP Sodium (132-148) mmol/L Potassium (3.6-5.2) mmol/L Chloride (98-107) mmol/L Carbon Dioxide (22-30) mmol/L Anion Gap (10-20) BUN (7-17) mg/dL Creatinine (0.7-1.2) MG/DL Est GFR ( Amer) Est GFR (Non-Af Amer) POC Glucose (mg/dL) (65-110) mg/dL Random Glucose (65-105) mg/dL Hemoglobin A1c (4.2-6.5) % Calcium (8.6-10.4) mg/dl Phosphorus (2.5-4.5) mg/dL Magnesium (1.6-2.3) mg/dL Total Bilirubin (0.2-1.3) mg/dL AST (14-36) U/L ALT (9-52) U/L Alkaline Phosphatase (38-126) U/L Troponin I 0.2340 H* (0.00-0.120) ng/mL Total Protein (6.3-8.3) g/dL Albumin (3.5-5.0) g/dL Globulin (2.2-3.9) gm/dL Albumin/Globulin Ratio (1.0-2.1) Laboratory Results - last 24 hr 09/15/16 09/16/16 09/16/16 19:12 00:03 05:11 WBC RBC Hgb Hct MCV MCH MCHC RDW Plt Count MPV Neut % (Auto) Lymph % (Auto) [place] % (Auto) Eos % (Auto) Baso % (Auto) Neut # Lymph # [place] # Eos # Baso # Puncture Site Rr pCO2 40 pO2 71 L HCO3 26.4 ABG pH 7.43 ABG Total CO2 27.7 ABG O2 Saturation 96.6 ABG Base Excess 2.0 ABG Hemoglobin 10.9 L ABG Carboxyhemoglobin 1.1 POC ABG HHb (Measured) 3.3 ABG Methemoglobin 0.9 On[place]re Test Pos A-a O2 Difference 164.0 Respiratory Index 2.3 Hgb O2 Saturation 94.8 L Mechanical Rate 16 FiO2 40.0 Tidal Volume 500 PEEP 5 Sodium Potassium Chloride Carbon Dioxide Anion Gap BUN Creatinine Est GFR ( Amer) Est GFR (Non-Af Amer) POC Glucose (mg/dL) 179 H Random Glucose Hemoglobin A1c Calcium Phosphorus Magnesium Total Bilirubin AST ALT Alkaline Phosphatase Troponin I 0.2340 H* Total Protein Albumin Globulin Albumin/Globulin Ratio 09/16/16 09/16/16 09/16/16 06:29 06:29 06:29 WBC 10.0 RBC 3.42 L Hgb 10.7 L Hct 31.7 L MCV 92.7 MCH 31.2 H MCHC 33.7 RDW 13.8 Plt Count 164 MPV 9.8 Neut % (Auto) 75.6 H Lymph % (Auto) 18.3 L [place] % (Auto) 5.0 Eos % (Auto) 0.9 Baso % (Auto) 0.2 Neut # 7.6 H Lymph # 1.8 [place] # 0.5 Eos # 0.1 Baso # 0.0 Puncture Site pCO2 pO2 HCO3 ABG pH ABG Total CO2 ABG O2 Saturation ABG Base Excess ABG Hemoglobin ABG Carboxyhemoglobin POC ABG HHb (Measured) ABG Methemoglobin [place]re Test A-a O2 Difference Respiratory Index Hgb O2 Saturation Mechanical Rate FiO2 Tidal Volume PEEP Sodium 138 Potassium 3.8 Chloride 102 Carbon Dioxide 26 Anion Gap 14 BUN 29 H Creatinine 1.4 H Est GFR ( Amer) 44 Est GFR (Non-Af Amer) 36 POC Glucose (mg/dL) Random Glucose 157 H Hemoglobin A1c 7.3 H Calcium 7.9 L Phosphorus 3.2 Magnesium 2.0 Total Bilirubin 0.6 AST 30 ALT 25 Alkaline Phosphatase 58 Troponin I Total Protein 6.2 L Albumin 3.4 L Globulin 2.8 Albumin/Globulin Ratio 1.2 09/16/16 09/16/16 09/16/16 06:56 07:02 11:50 WBC RBC Hgb Hct MCV MCH MCHC RDW Plt Count MPV Neut % (Auto) Lymph % (Auto) [place] % (Auto) Eos % (Auto) Baso % (Auto) Neut # Lymph # [place] # Eos # Baso # Puncture Site pCO2 pO2 HCO3 ABG pH ABG Total CO2 ABG O2 Saturation ABG Base Excess ABG Hemoglobin ABG Carboxyhemoglobin POC ABG HHb (Measured) ABG Methemoglobin [place]re Test A-a O2 Difference Respiratory Index Hgb O2 Saturation Mechanical Rate FiO2 Tidal Volume PEEP Sodium Potassium Chloride Carbon Dioxide Anion Gap BUN Creatinine Est GFR ( Amer) Est GFR (Non-Af Amer) POC Glucose (mg/dL) 201 H 167 H Random Glucose Hemoglobin A1c Calcium Phosphorus Magnesium Total Bilirubin AST ALT Alkaline Phosphatase Troponin I 0.1480 H* Total Protein Albumin Globulin Albumin/Globulin Ratio 09/16/16 16:48 WBC RBC Hgb Hct MCV MCH MCHC RDW Plt Count MPV Neut % (Auto) Lymph % (Auto) [place] % (Auto) Eos % (Auto) Baso % (Auto) Neut # Lymph # [place] # Eos # Baso # Puncture Site pCO2 pO2 HCO3 ABG pH ABG Total CO2 ABG O2 Saturation ABG Base Excess ABG Hemoglobin ABG Carboxyhemoglobin POC ABG HHb (Measured) ABG Methemoglobin [place]re Test A-a O2 Difference Respiratory Index Hgb O2 Saturation Mechanical Rate FiO2 Tidal Volume PEEP Sodium Potassium Chloride Carbon Dioxide Anion Gap BUN Creatinine Est GFR ( Amer) Est GFR (Non-Af Amer) POC Glucose (mg/dL) 137 H Random Glucose Hemoglobin A1c Calcium Phosphorus Magnesium Total Bilirubin AST ALT Alkaline Phosphatase Troponin I Total Protein Albumin Globulin Albumin/Globulin Ratio Attending/Attestation - Attestation I have personally seen and examined this patient.: Yes I have fully participated in the care of the patient.: Yes I have reviewed all pertinent clinical information: Yes Notes (Text): 09/16/16 19:14 Problems, LAb discussed given the rounds. X-ray improving. Patient extubated stable
[2016-09-17] MEDS: Piperacill/Tazo 2.25gm in Dex 2.25 GM/50 ML BAG IVPB SCH ×3 (03:30→18:47)
[2016-09-17] MEDS: (Novolog) Insulin Aspart, Recombinant 100 u/ml 10 ml vial SC SCH ×5 (06:00→22:05)
[2016-09-17 06:46] LABS: BASO % 0.3 % (0.0-2.0); EOS # 0.3 K/uL (0.0-0.7); EOS % 3.6 % (0.0-4.0); HEMATOCRIT 30.3 % (34.0-47.0); LYMPH # 1.5 K/uL (1.0-4.3); LYMPH % 18.3 % (20.0-40.0); MEAN CELL VOLUME 93.8 fL (81.0-99.0); MEAN CORPUSCULAR HEMOGLOBIN 31.5 pg (27.0-31.0); MEAN CORPUSCULAR HGB CONC 33.6 g/dL (33.0-37.0); MEAN PLATELET VOLUME 9.5 fL (7.2-11.7); MONO # 0.5 K/uL (0.0-0.8); MONO % 6.7 % (0.0-10.0); RED CELL DISTRIBUTION WIDTH 13.9 % (11.5-14.5); WHITE BLOOD COUNT 8.2 K/uL (4.8-10.8)
[2016-09-17 06:54] LABS: ALB/GLOB RATIO 1.1 (1.0-2.1); BILIRUBIN,TOTAL 0.7 mg/dL (0.2-1.3); TOTAL PROTEIN 6.2 g/dL (6.3-8.3)
[2016-09-17 06:55] LABS: CALCIUM 8.3 mg/dl (8.6-10.4); MAGNESIUM 2.2 mg/dL (1.6-2.3); PHOSPHOROUS 3.7 mg/dL (2.5-4.5)
[2016-09-17] MEDS: Enoxaparin 40 mg Syringe SC SCH (10:49)
--- NOTE | 2016-09-17 11:49 | CP.PCM.PN ---
Subjective - Date & Time of Evaluation Date of Evaluation: 09/17/16 Time of Evaluation: 11:47 - Subjective Subjective: Extubated, denies constitutional symptoms. Objective - Vital Signs/Intake and Output Vital Signs (last 24 hours): Temp Pulse Resp BP Pulse Ox 98.4 F 70 21 109/58 L 100 09/17/16 04:00 09/17/16 04:00 09/17/16 04:00 09/17/16 11:36 09/17/16 04:00 Intake and Output: 09/17/16 09/17/16 06:59 18:59 Intake Total 150 Output Total 440 40 Balance -290 -40 - Medications Medications: Current Medications Aspirin (Aspirin Chewable) 81 mg NG DAILY [facility] Last Admin: 09/17/16 10:46 Dose: 81 mg Carvedilol (Coreg) 3.125 mg NG DAILY [facility] Last Admin: 09/16/16 09:14 Dose: Not Given Clopidogrel Bisulfate (Plavix) 75 mg NG DAILY [facility] Last Admin: 09/17/16 10:46 Dose: 75 mg Enoxaparin Sodium (Lovenox) 40 mg SC DAILY [facility] Last Admin: 09/17/16 10:49 Dose: 40 mg Famotidine (Pepcid) 20 mg IVP DAILY [facility] Last Admin: 09/17/16 11:38 Dose: 20 mg Furosemide (Lasix) 40 mg IVP DAILY [facility] Last Admin: 09/17/16 11:36 Dose: 40 mg Piperacillin Sod/Tazobactam Sod (Zosyn 2.25 Gm Iv Premix) 2.25 gm in 50 mls @ 100 mls/hr IVPB Q8H [facility] Last Admin: 09/17/16 11:44 Dose: 100 mls/hr Insulin Aspart (Novolog) 0 unit SC Q6H [facility] PRN Reason: Protocol Last Admin: 09/17/16 06:00 Dose: Not Given Losartan Potassium (Cozaar) 50 mg PO DAILY [facility] Last Admin: 09/16/16 09:14 Dose: Not Given Rosuvastatin Calcium (Crestor) 5 mg NG HS [facility] Last Admin: 09/16/16 21:16 Dose: 5 mg Spironolactone (Aldactone) 25 mg NG DAILY [facility] Last Admin: 09/17/16 10:44 Dose: Not Given - Labs Labs: 09/17/16 06:24 09/17/16 06:27 PT 11.3 SECONDS (9.7-12.2) 09/15/16 02:21 INR 1.0 09/15/16 02:21 APTT 28 SECONDS (21-34) 09/15/16 02:21 Assessment and Plan - Assessment and Plan (Free Text) Assessment: 81 y/o with acute repiratory failure now s/p extubation. * CXRAY images viewed by me findings with congestion and prominent hazyness of the R. lung lance suggests PNA * CKD stage 3 * ECHO images viewed by me shows severe LV dysfunction, but Stage I diastolic dysfunction suggests a normal left atrial pressure * Labs: Normal H/H, No leukocytosis, minimal inc in AST * Acute on chronic systolic HF with inc NTPBNP and minimal inc in troponin may be related to cardiomyopathy Cont current Rx and vent support Continue abx as per primary team. Continue pulmonary toilet. Encourage PT when tolerating. DVT prophylaxsis
--- NOTE | 2016-09-17 12:02 | CARD ---
APPROVED REPORT EKG Measurement Heart [id number] <Conclusion> Undetermined rhythm ST & T wave abnormality, consider lateral ischemia Prolonged QT Abnormal ECG
--- NOTE | 2016-09-17 12:16 | CP.CCUPN ---
<Bala Pathak - Last Filed: 09/17/16 12:05> CCU Subjective - Physician Review Subjective (Free Text): 09/17/16 12:05 Pt seen and examined at bedside. Pt extubated last evening, and O2 sats 100% on 4L NC. Pt admits breathing well today, and is oriented x 3. She denies chest pain, SOB, abdominal pain, N/V. Critical Care Time Spent (in minutes): 40 CCU Objective - Vital Signs / Intake & Output Vital Signs (Last 4 hours): Vital Signs BP 09/17/16 11:36 109/58 L Intake and Output (Last 8hrs): Intake & Output 09/16/16 09/17/16 09/17/16 22:59 06:59 14:59 Intake Total 100 50 Output Total 390 290 40 Balance -290 -240 -40 Weight 165 lb Intake: Intake, IV Amount 50 50 Right Antecubital 50 50 Oral 50 0 Tube Feeding 0 Output: Urine 390 290 40 Urethral (Strange) 390 290 40 - Physical Exam Head: Positive for: Atraumatic, Normocephalic Pupils: Positive for: PERRL Extroacular Muscles: Positive for: EOMI Conjunctiva: Positive for: Normal Mouth: Positive for: Moist Mucous Membranes Respiratory/Chest: Positive for: Decreased Breath Sounds. Negative for: Respiratory Distress, Wheezes Cardiovascular: Positive for: Regular Rate and Rhythm, Murmurs, Normal S1, S2 Abdomen: Positive for: Normal Bowel Sounds. Negative for: Distention Upper Extremity: Positive for: Normal Inspection, NORMAL PULSES Lower Extremity: Positive for: Normal Inspection, NORMAL PULSES Neurological: Negative for: Speech Normal Skin: Positive for: Warm, Dry Psychiatric: Positive for: Alert, Oriented x 3 - Medications Active Medications: Active Medications Generic Name Dose Route Start Last Admin Trade Name Freq PRN Reason Stop Dose Admin Aspirin 81 mg 09/15/16 10:00 09/17/16 10:46 Aspirin Chewable NG 81 mg DAILY ANTHONY Administration Carvedilol 3.125 mg 09/15/16 10:00 09/16/16 09:14 Coreg NG Not Given DAILY ANTHONY Clopidogrel Bisulfate 75 mg 09/15/16 10:00 09/17/16 10:46 Plavix NG 75 mg DAILY ANTHONY Administration Enoxaparin Sodium 40 mg 09/15/16 10:00 09/17/16 10:49 Lovenox SC 40 mg DAILY ANTHONY Administration Famotidine 20 mg 09/16/16 22:00 09/17/16 11:38 Pepcid IVP 20 mg DAILY ANTHONY Administration Furosemide 40 mg 09/15/16 10:00 09/17/16 11:36 Lasix IVP 40 mg DAILY ANTHONY Administration Piperacillin Sod/Tazobactam Sod 2.25 gm in 50 mls @ 100 mls/hr 09/15/16 11:30 09/17/16 11:44 Zosyn 2.25 Gm Iv Premix IVPB 100 mls/hr Q8H ANTHONY Administration Insulin Aspart 0 unit 09/15/16 12:00 09/17/16 06:00 Novolog SC Not Given Q6H ANTHONY Protocol Losartan Potassium 50 mg 09/15/16 10:00 09/16/16 09:14 Cozaar PO Not Given DAILY ANTHONY Rosuvastatin Calcium 5 mg 09/15/16 22:00 09/16/16 21:16 Crestor NG 5 mg HS ANTHONY Administration Spironolactone 25 mg 09/15/16 16:15 09/17/16 10:44 Aldactone NG Not Given DAILY ANTHONY - Patient Studies Lab Studies: Microbiology Studies 09/15/16 06:02 MRSA Culture (Admit) - Final Nose MRSA NOT DETECTED Lab Studies 09/17/16 09/17/16 09/17/16 Range/Units 06:59 06:27 06:24 WBC 8.2 (4.8-10.8) K/uL RBC 3.23 L (3.80-5.20) Mil/uL Hgb 10.2 L (11.0-16.0) g/dL Hct 30.3 L (34.0-47.0) % MCV 93.8 (81.0-99.0) fL MCH 31.5 H (27.0-31.0) pg MCHC 33.6 (33.0-37.0) g/dL RDW 13.9 (11.5-14.5) % Plt Count 147 (130-400) K/uL MPV 9.5 (7.2-11.7) fL Neut % (Auto) 71.1 (50.0-75.0) % Lymph % (Auto) 18.3 L (20.0-40.0) % [place] % (Auto) 6.7 (0.0-10.0) % Eos % (Auto) 3.6 (0.0-4.0) % Baso % (Auto) 0.3 (0.0-2.0) % Neut # 5.8 (1.8-7.0) K/uL Lymph # 1.5 (1.0-4.3) K/uL [place] # 0.5 (0.0-0.8) K/uL Eos # 0.3 (0.0-0.7) K/uL Baso # 0.0 (0.0-0.2) K/uL Sodium 140 (132-148) mmol/L Potassium 4.0 (3.6-5.2) mmol/L Chloride 103 (98-107) mmol/L Carbon Dioxide 27 (22-30) mmol/L Anion Gap 13 (10-20) BUN 23 H (7-17) mg/dL Creatinine 1.3 H (0.7-1.2) MG/DL Est GFR ( Amer) 48 Est GFR (Non-Af Amer) 40 POC Glucose (mg/dL) 144 H (65-110) mg/dL Random Glucose 119 H (65-105) mg/dL Calcium 8.3 L (8.6-10.4) mg/dl Phosphorus 3.7 (2.5-4.5) mg/dL Magnesium 2.2 (1.6-2.3) mg/dL Total Bilirubin 0.7 (0.2-1.3) mg/dL AST 43 H D (14-36) U/L ALT 22 (9-52) U/L Alkaline Phosphatase 46 (38-126) U/L Total Protein 6.2 L (6.3-8.3) g/dL Albumin 3.3 L (3.5-5.0) g/dL Globulin 3.0 (2.2-3.9) gm/dL Albumin/Globulin Ratio 1.1 (1.0-2.1) 09/16/16 09/16/16 Range/Units 23:57 16:48 WBC (4.8-10.8) K/uL RBC (3.80-5.20) Mil/uL Hgb (11.0-16.0) g/dL Hct (34.0-47.0) % MCV (81.0-99.0) fL MCH (27.0-31.0) pg MCHC (33.0-37.0) g/dL RDW (11.5-14.5) % Plt Count (130-400) K/uL MPV (7.2-11.7) fL Neut % (Auto) (50.0-75.0) % Lymph % (Auto) (20.0-40.0) % [place] % (Auto) (0.0-10.0) % Eos % (Auto) (0.0-4.0) % Baso % (Auto) (0.0-2.0) % Neut # (1.8-7.0) K/uL Lymph # (1.0-4.3) K/uL [place] # (0.0-0.8) K/uL Eos # (0.0-0.7) K/uL Baso # (0.0-0.2) K/uL Sodium (132-148) mmol/L Potassium (3.6-5.2) mmol/L Chloride (98-107) mmol/L Carbon Dioxide (22-30) mmol/L Anion Gap (10-20) BUN (7-17) mg/dL Creatinine (0.7-1.2) MG/DL Est GFR ( Amer) Est GFR (Non-Af Amer) POC Glucose (mg/dL) 200 H 137 H (65-110) mg/dL Random Glucose (65-105) mg/dL Calcium (8.6-10.4) mg/dl Phosphorus (2.5-4.5) mg/dL Magnesium (1.6-2.3) mg/dL Total Bilirubin (0.2-1.3) mg/dL AST (14-36) U/L ALT (9-52) U/L Alkaline Phosphatase (38-126) U/L Total Protein (6.3-8.3) g/dL Albumin (3.5-5.0) g/dL Globulin (2.2-3.9) gm/dL Albumin/Globulin Ratio (1.0-2.1) Laboratory Results - last 24 hr 09/16/16 09/16/16 09/17/16 16:48 23:57 06:24 WBC 8.2 RBC 3.23 L Hgb 10.2 L Hct 30.3 L MCV 93.8 MCH 31.5 H MCHC 33.6 RDW 13.9 Plt Count 147 MPV 9.5 Neut % (Auto) 71.1 Lymph % (Auto) 18.3 L [place] % (Auto) 6.7 Eos % (Auto) 3.6 Baso % (Auto) 0.3 Neut # 5.8 Lymph # 1.5 [place] # 0.5 Eos # 0.3 Baso # 0.0 Sodium Potassium Chloride Carbon Dioxide Anion Gap BUN Creatinine Est GFR ( Amer) Est GFR (Non-Af Amer) POC Glucose (mg/dL) 137 H 200 H Random Glucose Calcium Phosphorus Magnesium Total Bilirubin AST ALT Alkaline Phosphatase Total Protein Albumin Globulin Albumin/Globulin Ratio 09/17/16 09/17/16 06:27 06:59 WBC RBC Hgb Hct MCV MCH MCHC RDW Plt Count MPV Neut % (Auto) Lymph % (Auto) [place] % (Auto) Eos % (Auto) Baso % (Auto) Neut # Lymph # [place] # Eos # Baso # Sodium 140 Potassium 4.0 Chloride 103 Carbon Dioxide 27 Anion Gap 13 BUN 23 H Creatinine 1.3 H Est GFR ( Amer) 48 Est GFR (Non-Af Amer) 40 POC Glucose (mg/dL) 144 H Random Glucose 119 H Calcium 8.3 L Phosphorus 3.7 Magnesium 2.2 Total Bilirubin 0.7 AST 43 H D ALT 22 Alkaline Phosphatase 46 Total Protein 6.2 L Albumin 3.3 L Globulin 3.0 Albumin/Globulin Ratio 1.1 Fingerstick Blood Sugar Results: 200 Review of Systems - Constitutional Constitutional: absent: Fever, Chills - EENT Eyes: absent: Change in Vision Ears: absent: Decreased Hearing Nose/Mouth/Throat: Sore Throat (s/p extubation). absent: Nasal Discharge - Cardiovascular Cardiovascular: absent: Chest Pain, Dyspnea - Respiratory Respiratory: absent: Cough, Dyspnea - Gastrointestinal Gastrointestinal: absent: Abdominal Pain, Nausea, Vomiting - Genitourinary Genitourinary: absent: Dysuria - Musculoskeletal Musculoskeletal: absent: Numbness, Tingling - Integumentary Integumentary: absent: Wounds - Neurological Neurological: absent: Numbness, Tingling, Weakness - Psychiatric Psychiatric: absent: Anxiety, Depression Critical Care Progress Note - Nutrition Nutrition: Nutrition Category Date Time Status Pureed [Dysphagia/Modified Consistency Diet] [DIET] Diets 09/18/16 Lunch Active Assessment/Plan - Assessment and Plan (Free Text) Assessment: 81 yo F with PMHx of HTN, DM, hyperlipidemia, CVA 2003, Breast cancer 2013 ( Left mastectomy) presenting with worsening shortness of breath. Pt intubated in ED. CT Chest indicating pneumonia on right. Plan: Neuro: AAOx3 Pt extubation yesterday evening Hx of stroke Continue Home meds: ASA 81mg NG Daily Plavix 75mg NG Daily CV: CHF Dr. Loya/Diogo, Cardiology, help appreciated: - Stress test 01/2016: Showed normal perfusion with reduction in LVEF 43% : suspicious for NICM - OPDX ECHO (05/2016): EF 35-40% - EKG read by Dr. Loya (NSR, competing PACs and junctional escapes) - Acute on chronic systolic HF, minimal inc in troponin may result from cardiomyopathy, as 01/2016 stress perfusion scan was normal - Per Dr. Lind, pt had [facility] on in past, but disconnected due to poor tolerance by pt BNP: 2280 (previous admission: 4060) Troponin: 0.012 > 0.2340 - believed CHF related - ECHO (09/15/16): LV systolic function severely limited, EF 20-25%, HTN heart disease, diastolic dysfunction, Mild aortic regurgitation, No pulmonary HTN, mild valvular regurgitation (see full report) Coreg 3.125mg NG Daily Cozaar 50mg PO Daily Lasix 40mg IV daily Aldactone 25mg NG daily HTN Pt has been hypo/normotensive since admission Coreg 3.125mg PO Daily Cozaar 50mg PO Daily CAD ASA 81mg NG Daily Plavix 75mg NG Daily Crestor 5 mg NG HS Pulm: Worsening SOB, inability to lie flat x 3 days Questionable Aspiration PNA - Due to pt being afebrile, central nature of infiltrate believed aspiration CXR (09/15/16): worsening, now severe, airspace opacification within the right lung with milder increased interstitial lung markings in the left lung, which may represent worsening edema and/or infiltrate. CXR (09/16/16): Moderate venous congestion. Low lying ETT 1.3 cm above [place]. ( see full report) CT Chest (09/15/16): Moderate bibasilar infiltrates. Large right upper lobe area of consolidation, probably pneumonia. Recommend follow up. (see full report) - atypical serology: negative Blood culture (09/15/16): No growth for 48 hours x 2 MRSA (09/15/16): Not detected Zosyn 2.25gm IV Q8H Acute respiratory failure Extubated, tolerating 4L NC O2 100% Endo: T2DM - accuchecks ACHS - ISS (low) - A1C: 7.3 GI: Extubated, Discontinue Tubefeedings Swallow eval: pureed, thin liquid Minimal increase in AST - monitor Renal/: CKD stage III BUN/Cr 23/1.3, slight improvement from 31/1.4 on admission Monitor Hyperphosphatemia - resolved ID: No leukocytosis, Afebrile Prophylaxis: Lovenox 40mg SC Daily Pepcid 20mg IV Q12H SCDs PT/OT <Yoel Branham S - Last Filed: 09/17/16 18:26> CCU Subjective - Physician Review Critical Care Time Spent (in minutes): 0 CCU Objective - Vital Signs / Intake & Output Intake and Output (Last 8hrs): Intake & Output 09/17/16 09/17/16 09/17/16 06:59 14:59 22:59 Intake Total 50 50 Output Total 290 540 170 Balance -240 -490 -170 Weight 165 lb Intake: Intake, IV Amount 50 50 Right Antecubital 50 50 Oral 0 Output: Urine 290 540 170 Urethral (Strange) 290 540 170 - Medications Active Medications: Active Medications Generic Name Dose Route Start Last Admin Trade Name Freq PRN Reason Stop Dose Admin Aspirin 81 mg 09/15/16 10:09/17/16 10:46 Aspirin Chewable NG 81 mg DAILY ANTHONY Administration Carvedilol 3.125 mg 09/15/16 10:00 09/17/16 12:18 Coreg NG 3.125 mg DAILY ANTHONY Administration Clopidogrel Bisulfate 75 mg 09/15/16 10:09/17/16 10:46 Plavix NG 75 mg DAILY ANTHONY Administration Enoxaparin Sodium 40 mg 09/15/16 10:00 09/17/16 10:49 Lovenox SC 40 mg DAILY ANTHONY Administration Famotidine 20 mg 09/16/16 22:00 09/17/16 11:38 Pepcid IVP 20 mg DAILY ANTHONY Administration Furosemide 40 mg 09/15/16 10:00 09/17/16 11:36 Lasix IVP 40 mg DAILY ANTHONY Administration Piperacillin Sod/Tazobactam Sod 2.25 gm in 50 mls @ 100 mls/hr 09/15/16 11:30 09/17/16 11:44 Zosyn 2.25 Gm Iv Premix IVPB 100 mls/hr Q8H ANTHONY Administration Insulin Aspart 0 unit 09/15/16 12:00 09/17/16 17:30 Novolog SC 2 unit Q6H ANTHONY Administration Protocol Losartan Potassium 50 mg 09/15/16 10:00 09/17/16 17:31 Cozaar PO Not Given DAILY ANTHONY Rosuvastatin Calcium 5 mg 09/15/16 22:00 09/16/16 21:16 Crestor NG 5 mg HS ANTHONY Administration Spironolactone 25 mg 09/15/16 16:15 09/17/16 10:44 Aldactone NG Not Given DAILY ANTHONY - Patient Studies Lab Studies: Lab Studies 09/17/16 09/17/16 09/17/16 Range/Units 16:22 12:46 06:59 WBC (4.8-10.8) K/uL RBC (3.80-5.20) Mil/uL Hgb (11.0-16.0) g/dL Hct (34.0-47.0) % MCV (81.0-99.0) fL MCH (27.0-31.0) pg MCHC (33.0-37.0) g/dL RDW (11.5-14.5) % Plt Count (130-400) K/uL MPV (7.2-11.7) fL Neut % (Auto) (50.0-75.0) % Lymph % (Auto) (20.0-40.0) % [place] % (Auto) (0.0-10.0) % Eos % (Auto) (0.0-4.0) % Baso % (Auto) (0.0-2.0) % Neut # (1.8-7.0) K/uL Lymph # (1.0-4.3) K/uL [place] # (0.0-0.8) K/uL Eos # (0.0-0.7) K/uL Baso # (0.0-0.2) K/uL Sodium (132-148) mmol/L Potassium (3.6-5.2) mmol/L Chloride (98-107) mmol/L Carbon Dioxide (22-30) mmol/L Anion Gap (10-20) BUN (7-17) mg/dL Creatinine (0.7-1.2) MG/DL Est GFR ( Amer) Est GFR (Non-Af Amer) POC Glucose (mg/dL) 141 H 207 H 144 H (65-110) mg/dL Random Glucose (65-105) mg/dL Calcium (8.6-10.4) mg/dl Phosphorus (2.5-4.5) mg/dL Magnesium (1.6-2.3) mg/dL Total Bilirubin (0.2-1.3) mg/dL AST (14-36) U/L ALT (9-52) U/L Alkaline Phosphatase (38-126) U/L Total Protein (6.3-8.3) g/dL Albumin (3.5-5.0) g/dL Globulin (2.2-3.9) gm/dL Albumin/Globulin Ratio (1.0-2.1) 09/17/16 09/17/16 09/16/16 Range/Units 06:27 06:24 23:57 WBC 8.2 (4.8-10.8) K/uL RBC 3.23 L (3.80-5.20) Mil/uL Hgb 10.2 L (11.0-16.0) g/dL Hct 30.3 L (34.0-47.0) % MCV 93.8 (81.0-99.0) fL MCH 31.5 H (27.0-31.0) pg MCHC 33.6 (33.0-37.0) g/dL RDW 13.9 (11.5-14.5) % Plt Count 147 (130-400) K/uL MPV 9.5 (7.2-11.7) fL Neut % (Auto) 71.1 (50.0-75.0) % Lymph % (Auto) 18.3 L (20.0-40.0) % [place] % (Auto) 6.7 (0.0-10.0) % Eos % (Auto) 3.6 (0.0-4.0) % Baso % (Auto) 0.3 (0.0-2.0) % Neut # 5.8 (1.8-7.0) K/uL Lymph # 1.5 (1.0-4.3) K/uL [place] # 0.5 (0.0-0.8) K/uL Eos # 0.3 (0.0-0.7) K/uL Baso # 0.0 (0.0-0.2) K/uL Sodium 140 (132-148) mmol/L Potassium 4.0 (3.6-5.2) mmol/L Chloride 103 (98-107) mmol/L Carbon Dioxide 27 (22-30) mmol/L Anion Gap 13 (10-20) BUN 23 H (7-17) mg/dL Creatinine 1.3 H (0.7-1.2) MG/DL Est GFR ( Amer) 48 Est GFR (Non-Af Amer) 40 POC Glucose (mg/dL) 200 H (65-110) mg/dL Random Glucose 119 H (65-105) mg/dL Calcium 8.3 L (8.6-10.4) mg/dl Phosphorus 3.7 (2.5-4.5) mg/dL Magnesium 2.2 (1.6-2.3) mg/dL Total Bilirubin 0.7 (0.2-1.3) mg/dL AST 43 H D (14-36) U/L ALT 22 (9-52) U/L Alkaline Phosphatase 46 (38-126) U/L Total Protein 6.2 L (6.3-8.3) g/dL Albumin 3.3 L (3.5-5.0) g/dL Globulin 3.0 (2.2-3.9) gm/dL Albumin/Globulin Ratio 1.1 (1.0-2.1) Laboratory Results - last 24 hr 09/16/16 09/17/16 09/17/16 23:57 06:24 06:27 WBC 8.2 RBC 3.23 L Hgb 10.2 L Hct 30.3 L MCV 93.8 MCH 31.5 H MCHC 33.6 RDW 13.9 Plt Count 147 MPV 9.5 Neut % (Auto) 71.1 Lymph % (Auto) 18.3 L [place] % (Auto) 6.7 Eos % (Auto) 3.6 Baso % (Auto) 0.3 Neut # 5.8 Lymph # 1.5 [place] # 0.5 Eos # 0.3 Baso # 0.0 Sodium 140 Potassium 4.0 Chloride 103 Carbon Dioxide 27 Anion Gap 13 BUN 23 H Creatinine 1.3 H Est GFR ( Amer) 48 Est GFR (Non-Af Amer) 40 POC Glucose (mg/dL) 200 H Random Glucose 119 H Calcium 8.3 L Phosphorus 3.7 Magnesium 2.2 Total Bilirubin 0.7 AST 43 H D ALT 22 Alkaline Phosphatase 46 Total Protein 6.2 L Albumin 3.3 L Globulin 3.0 Albumin/Globulin Ratio 1.1 09/17/16 09/17/16 09/17/16 06:59 12:46 16:22 WBC RBC Hgb Hct MCV MCH MCHC RDW Plt Count MPV Neut % (Auto) Lymph % (Auto) [place] % (Auto) Eos % (Auto) Baso % (Auto) Neut # Lymph # [place] # Eos # Baso # Sodium Potassium Chloride Carbon Dioxide Anion Gap BUN Creatinine Est GFR ( Amer) Est GFR (Non-Af Amer) POC Glucose (mg/dL) 144 H 207 H 141 H Random Glucose Calcium Phosphorus Magnesium Total Bilirubin AST ALT Alkaline Phosphatase Total Protein Albumin Globulin Albumin/Globulin Ratio Critical Care Progress Note - Nutrition Nutrition: Nutrition Category Date Time Status Pureed [Dysphagia/Modified Consistency Diet] [DIET] Diets 09/18/16 Lunch Active Attending/Attestation - Attestation I have personally seen and examined this patient.: Yes I have fully participated in the care of the patient.: Yes I have reviewed all pertinent clinical information: Yes Notes (Text): 09/17/16 18:26 Patient seen and examined in the intensive care unit. Case discussed with staff in the morning rounds. Extubated yesterday comfortable in no distress Seen by cardiology and the plan is continue current medical treatment Transfer to telemetry
--- NOTE | 2016-09-17 17:06 | CP.PCM.PN ---
Subjective - Date & Time of Evaluation Date of Evaluation: 09/16/16 - Subjective Subjective: Pt seen and examined at bedside. Pt intubated, but more aware and responsive today. Tolerated CPAP trial well today, and will attempt extubation. Full ROS unavailable at this time due to intubation, but when asked if she had any pain, pt shook her head 'no'. Objective - Vital Signs/Intake and Output Vital Signs (last 24 hours): Temp Pulse Resp BP Pulse Ox 97.7 F 63 22 96/55 L 100 09/17/16 12:00 09/17/16 13:01 09/17/16 13:01 09/17/16 13:01 09/17/16 13:01 Intake and Output: 09/17/16 09/17/16 06:59 18:59 Intake Total 150 50 Output Total 440 265 Balance -290 -215 - Medications Medications: Current Medications Aspirin (Aspirin Chewable) 81 mg NG DAILY [facility] Last Admin: 09/17/16 10:46 Dose: 81 mg Carvedilol (Coreg) 3.125 mg NG DAILY [facility] Last Admin: 09/17/16 12:18 Dose: 3.125 mg Clopidogrel Bisulfate (Plavix) 75 mg NG DAILY [facility] Last Admin: 09/17/16 10:46 Dose: 75 mg Enoxaparin Sodium (Lovenox) 40 mg SC DAILY [facility] Last Admin: 09/17/16 10:49 Dose: 40 mg Famotidine (Pepcid) 20 mg IVP DAILY [facility] Last Admin: 09/17/16 11:38 Dose: 20 mg Furosemide (Lasix) 40 mg IVP DAILY [facility] Last Admin: 09/17/16 11:36 Dose: 40 mg Piperacillin Sod/Tazobactam Sod (Zosyn 2.25 Gm Iv Premix) 2.25 gm in 50 mls @ 100 mls/hr IVPB Q8H [facility] Last Admin: 09/17/16 11:44 Dose: 100 mls/hr Insulin Aspart (Novolog) 0 unit SC Q6H [facility] PRN Reason: Protocol Last Admin: 09/17/16 12:24 Dose: 2 unit Losartan Potassium (Cozaar) 50 mg PO DAILY [facility] Last Admin: 09/16/16 09:14 Dose: Not Given Rosuvastatin Calcium (Crestor) 5 mg NG HS [facility] Last Admin: 09/16/16 21:16 Dose: 5 mg Spironolactone (Aldactone) 25 mg NG DAILY [facility] Last Admin: 09/17/16 10:44 Dose: Not Given - Labs Labs: 09/17/16 06:24 09/17/16 06:27 PT 11.3 SECONDS (9.7-12.2) 09/15/16 02:21 INR 1.0 09/15/16 02:21 APTT 28 SECONDS (21-34) 09/15/16 02:21 - Constitutional Appears: No Acute Distress, Chronically Ill - Head Exam Head Exam: ATRAUMATIC, NORMAL INSPECTION, NORMOCEPHALIC - Eye Exam Eye Exam: EOMI, Normal appearance, PERRL Pupil Exam: NORMAL ACCOMODATION, PERRL - Respiratory Exam Respiratory Exam: Decreased Breath Sounds, Rales, Rhonchi - Cardiovascular Exam Cardiovascular Exam: REGULAR RHYTHM, +S1, +S2. absent: Murmur - GI/Abdominal Exam GI & Abdominal Exam: Soft, Normal Bowel Sounds. absent: Tenderness - Neurological Exam Neurological Exam: Alert, Awake, CN II-XII Intact, Normal Gait, Oriented x3 Assessment and Plan (1) Acute pulmonary edema Status: Acute (2) Respiratory failure Status: Acute (3) CHF, acute Status: Acute (4) Pneumonia Status: Acute
--- NOTE | 2016-09-17 17:07 | CP.PCM.PN ---
Subjective - Date & Time of Evaluation Date of Evaluation: 09/17/16 - Subjective Subjective: pt seen & examined s/p Extubated, denies constitutional symptoms. Objective - Vital Signs/Intake and Output Vital Signs (last 24 hours): Temp Pulse Resp BP Pulse Ox 97.7 F 63 22 96/55 L 100 09/17/16 12:00 09/17/16 13:01 09/17/16 13:01 09/17/16 13:01 09/17/16 13:01 Intake and Output: 09/17/16 09/17/16 06:59 18:59 Intake Total 150 50 Output Total 440 265 Balance -290 -215 - Medications Medications: Current Medications Aspirin (Aspirin Chewable) 81 mg NG DAILY [facility] Last Admin: 09/17/16 10:46 Dose: 81 mg Carvedilol (Coreg) 3.125 mg NG DAILY [facility] Last Admin: 09/17/16 12:18 Dose: 3.125 mg Clopidogrel Bisulfate (Plavix) 75 mg NG DAILY [facility] Last Admin: 09/17/16 10:46 Dose: 75 mg Enoxaparin Sodium (Lovenox) 40 mg SC DAILY [facility] Last Admin: 09/17/16 10:49 Dose: 40 mg Famotidine (Pepcid) 20 mg IVP DAILY [facility] Last Admin: 09/17/16 11:38 Dose: 20 mg Furosemide (Lasix) 40 mg IVP DAILY [facility] Last Admin: 09/17/16 11:36 Dose: 40 mg Piperacillin Sod/Tazobactam Sod (Zosyn 2.25 Gm Iv Premix) 2.25 gm in 50 mls @ 100 mls/hr IVPB Q8H [facility] Last Admin: 09/17/16 11:44 Dose: 100 mls/hr Insulin Aspart (Novolog) 0 unit SC Q6H [facility] PRN Reason: Protocol Last Admin: 09/17/16 12:24 Dose: 2 unit Losartan Potassium (Cozaar) 50 mg PO DAILY [facility] Last Admin: 09/16/16 09:14 Dose: Not Given Rosuvastatin Calcium (Crestor) 5 mg NG HS [facility] Last Admin: 09/16/16 21:16 Dose: 5 mg Spironolactone (Aldactone) 25 mg NG DAILY [facility] Last Admin: 09/17/16 10:44 Dose: Not Given - Labs Labs: 09/17/16 06:24 09/17/16 06:27 PT 11.3 SECONDS (9.7-12.2) 09/15/16 02:21 INR 1.0 09/15/16 02:21 APTT 28 SECONDS (21-34) 09/15/16 02:21 - Constitutional Appears: No Acute Distress - Head Exam Head Exam: ATRAUMATIC, NORMAL INSPECTION, NORMOCEPHALIC - Eye Exam Eye Exam: EOMI, Normal appearance, PERRL Pupil Exam: NORMAL ACCOMODATION, PERRL - Respiratory Exam Respiratory Exam: Decreased Breath Sounds, Rales - Cardiovascular Exam Cardiovascular Exam: REGULAR RHYTHM, +S1, +S2. absent: Murmur - GI/Abdominal Exam GI & Abdominal Exam: Soft, Normal Bowel Sounds. absent: Tenderness - Neurological Exam Neurological Exam: Alert, Awake, CN II-XII Intact, Normal Gait, Oriented x3 - Psychiatric Exam Psychiatric exam: Normal Affect, Normal Mood Assessment and Plan (1) Acute pulmonary edema Status: Acute (2) Respiratory failure Status: Acute (3) CHF, acute Status: Acute (4) Pneumonia Status: Acute
[2016-09-18] MEDS: Piperacill/Tazo 2.25gm in Dex 2.25 GM/50 ML BAG IVPB SCH ×3 (03:30→18:41)
[2016-09-18 06:40] LABS: BASO % 0.3 % (0.0-2.0); EOS # 0.4 K/uL (0.0-0.7); EOS % 4.2 % (0.0-4.0); HEMATOCRIT 30.8 % (34.0-47.0); LYMPH # 1.9 K/uL (1.0-4.3); LYMPH % 21.7 % (20.0-40.0); MEAN CELL VOLUME 92.7 fL (81.0-99.0); MEAN CORPUSCULAR HEMOGLOBIN 30.4 pg (27.0-31.0); MEAN CORPUSCULAR HGB CONC 32.8 g/dL (33.0-37.0); MEAN PLATELET VOLUME 9.9 fL (7.2-11.7); MONO # 0.6 K/uL (0.0-0.8); MONO % 7.2 % (0.0-10.0); RED CELL DISTRIBUTION WIDTH 13.8 % (11.5-14.5); WHITE BLOOD COUNT 8.7 K/uL (4.8-10.8)
[2016-09-18 06:47] LABS: BILIRUBIN,TOTAL 0.6 mg/dL (0.2-1.3)
[2016-09-18 06:48] LABS: ALB/GLOB RATIO 1.1 (1.0-2.1); CALCIUM 8.7 mg/dl (8.6-10.4); MAGNESIUM 2.2 mg/dL (1.6-2.3); PHOSPHOROUS 4.7 mg/dL (2.5-4.5); TOTAL PROTEIN 6.4 g/dL (6.3-8.3)
[2016-09-18] MEDS ORDERED: (Novolog) Insulin Aspart, Recombinant 100 u/ml 10 ml vial SC SCH (07:30)
[2016-09-18] MEDS: (Novolog) Insulin Aspart, Recombinant 100 u/ml 10 ml vial SC SCH ×4 (07:50→21:52)
[2016-09-18] MEDS: Enoxaparin 40 mg Syringe SC SCH (09:37)
--- NOTE | 2016-09-18 10:03 | CP.PCM.PN ---
Subjective - Date & Time of Evaluation Date of Evaluation: 09/18/16 Time of Evaluation: 10:00 - Subjective Subjective: Feeling better No dyspnea Clear lungs No fever NSR on TELE Objective - Vital Signs/Intake and Output Vital Signs (last 24 hours): Temp Pulse Resp BP Pulse Ox 98.3 F 72 16 157/44 H 99 09/18/16 08:49 09/18/16 09:20 09/18/16 09:20 09/18/16 09:37 09/18/16 09:20 Intake and Output: 09/18/16 09/18/16 06:59 18:59 Intake Total 400 360 Output Total 450 85 Balance -50 275 - Medications Medications: Current Medications Aspirin (Aspirin Chewable) 81 mg NG DAILY [facility] Last Admin: 09/18/16 09:48 Dose: 81 mg Carvedilol (Coreg) 3.125 mg NG DAILY [facility] Last Admin: 09/18/16 09:47 Dose: 3.125 mg Clopidogrel Bisulfate (Plavix) 75 mg NG DAILY [facility] Last Admin: 09/18/16 09:47 Dose: 75 mg Enoxaparin Sodium (Lovenox) 40 mg SC DAILY [facility] Last Admin: 09/18/16 09:37 Dose: 40 mg Famotidine (Pepcid) 20 mg IVP DAILY [facility] Last Admin: 09/18/16 09:47 Dose: 20 mg Furosemide (Lasix) 40 mg IVP DAILY [facility] Last Admin: 09/18/16 09:37 Dose: 40 mg Piperacillin Sod/Tazobactam Sod (Zosyn 2.25 Gm Iv Premix) 2.25 gm in 50 mls @ 100 mls/hr IVPB Q8H [facility] Last Admin: 09/18/16 03:30 Dose: 100 mls/hr Insulin Aspart (Novolog) 0 unit SC ACHS [facility] PRN Reason: Protocol Last Admin: 09/18/16 07:50 Dose: 1 unit Losartan Potassium (Cozaar) 50 mg PO DAILY [facility] Last Admin: 09/18/16 09:47 Dose: 50 mg Rosuvastatin Calcium (Crestor) 5 mg NG HS [facility] Last Admin: 09/17/16 22:02 Dose: 5 mg Spironolactone (Aldactone) 25 mg NG DAILY [facility] Last Admin: 09/18/16 09:47 Dose: 25 mg - Labs Labs: 09/18/16 06:24 09/18/16 06:24 PT 11.3 SECONDS (9.7-12.2) 09/15/16 02:21 INR 1.0 09/15/16 02:21 APTT 28 SECONDS (21-34) 09/15/16 02:21 - Constitutional Appears: No Acute Distress, Chronically Ill - Head Exam Head Exam: NORMAL INSPECTION, NORMOCEPHALIC - Eye Exam Eye Exam: EOMI, Normal appearance, PERRL - ENT Exam ENT Exam: Mucous Membranes Moist, Normal Oropharynx - Neck Exam Neck Exam: absent: Tenderness, Thyromegaly - Respiratory Exam Respiratory Exam: Clear to Ausculation Bilateral, NORMAL BREATHING PATTERN. absent: Rales, Rhonchi, Wheezes - Cardiovascular Exam Cardiovascular Exam: REGULAR RHYTHM, +S2. absent: +S4, Murmur - GI/Abdominal Exam GI & Abdominal Exam: Normal Bowel Sounds - Extremities Exam Extremities Exam: absent: Calf Tenderness, Pedal Edema - Back Exam Back Exam: NORMAL INSPECTION - Neurological Exam Neurological Exam: Alert, Awake - Skin Skin Exam: Normal Color, Warm Assessment and Plan - Assessment and Plan (Free Text) Assessment: 81 y/o with acute repiratory failure now s/p extubation. * CXRAY images viewed by me findings with congestion and prominent hazyness of the R. lung lance suggests PNA * CKD stage 3 * ECHO images viewed by me shows severe LV dysfunction, but Stage I diastolic dysfunction suggests a normal left atrial pressure * Labs: Normal H/H, No leukocytosis, minimal inc in AST * Acute on chronic systolic HF with inc NTPBNP and minimal inc in troponin may be related to cardiomyopathy Cont current Rx and vent support Continue abx as per primary team. Continue pulmonary toilet. Encourage PT when tolerating. DVT prophylaxsis No plans for cardiac cath will consider as outpatient. Cont CHF RX: with aldactone, coreg, losartan and lasix. Monitor BP and titrate meds if tolerated.
--- NOTE | 2016-09-18 15:02 | CP.CCUPN ---
<Bala Pathak - Last Filed: 09/18/16 14:58> CCU Subjective - Physician Review Subjective (Free Text): 09/18/16 14:58 Pt seen and examined at bedside. Pt breathing well today, O2 sats 100% on 4L NC. She denies chest pain, SOB, abdominal pain, N/V. Tolerating diet, lassiter discontinued. Critical Care Time Spent (in minutes): 40 CCU Objective - Vital Signs / Intake & Output Vital Signs (Last 4 hours): Vital Signs Pulse Resp BP Pulse Ox 09/18/16 14:20 62 20 09/18/16 14:10 62 23 09/18/16 14:00 61 17 09/18/16 13:52 60 22 86/54 L 09/18/16 13:50 59 L 20 09/18/16 13:40 61 20 09/18/16 13:39 59 L 20 86/46 L 09/18/16 13:34 63 15 09/18/16 13:30 68 17 09/18/16 13:20 63 12 100 09/18/16 13:10 64 14 100 09/18/16 13:00 67 13 100 09/18/16 12:50 66 22 100 09/18/16 12:40 65 20 100 09/18/16 12:30 64 15 100 09/18/16 12:20 57 L 22 100 09/18/16 12:10 59 L 20 99 09/18/16 12:00 59 L 23 100 09/18/16 11:50 59 L 15 100 09/18/16 11:40 66 25 H 100 09/18/16 11:30 61 14 100 09/18/16 11:20 64 19 100 09/18/16 11:10 62 15 100 09/18/16 11:01 64 23 109/50 L 100 09/18/16 11:00 62 20 138/51 L 100 Intake and Output (Last 8hrs): Intake & Output 09/17/16 09/18/16 09/18/16 22:59 06:59 14:59 Intake Total 420 100 805 Output Total 485 310 600 Balance -65 -210 205 Weight 165 lb Intake: Intake, IV Amount 50 50 50 Right Antecubital 50 50 50 Oral 370 50 755 Output: Urine 485 310 600 Urethral (Lassiter) 485 310 550 Urine, Voided 50 - Physical Exam Head: Positive for: Atraumatic, Normocephalic Pupils: Positive for: PERRL Extroacular Muscles: Positive for: EOMI Conjunctiva: Positive for: Normal Mouth: Positive for: Moist Mucous Membranes Respiratory/Chest: Positive for: Clear to Auscultation, Good Air Exchange. Negative for: Respiratory Distress, Wheezes Cardiovascular: Positive for: Regular Rate and Rhythm, Normal S1, S2 Abdomen: Positive for: Normal Bowel Sounds. Negative for: Distention Upper Extremity: Positive for: Normal Inspection, NORMAL PULSES Lower Extremity: Positive for: Normal Inspection, NORMAL PULSES Neurological: Negative for: Speech Normal Skin: Positive for: Warm, Dry Psychiatric: Positive for: Alert, Oriented x 3, Normal Insight - Medications Active Medications: Active Medications Generic Name Dose Route Start Last Admin Trade Name Freq PRN Reason Stop Dose Admin Aspirin 81 mg 09/15/16 10:00 09/18/16 09:48 Aspirin Chewable NG 81 mg DAILY ANTHONY Administration Carvedilol 3.125 mg 09/15/16 10:00 09/18/16 09:47 Coreg NG 3.125 mg DAILY ANTHONY Administration Clopidogrel Bisulfate 75 mg 09/15/16 10:00 09/18/16 09:47 Plavix NG 75 mg DAILY ANTHONY Administration Enoxaparin Sodium 40 mg 09/15/16 10:00 09/18/16 09:37 Lovenox SC 40 mg DAILY ANTHONY Administration Famotidine 20 mg 09/16/16 22:00 09/18/16 09:47 Pepcid IVP 20 mg DAILY ANTHONY Administration Furosemide 40 mg 09/15/16 10:00 09/18/16 09:37 Lasix IVP 40 mg DAILY ANTHONY Administration Piperacillin Sod/Tazobactam Sod 2.25 gm in 50 mls @ 100 mls/hr 09/15/16 11:30 09/18/16 11:18 Zosyn 2.25 Gm Iv Premix IVPB 100 mls/hr Q8H ANTHONY Administration Insulin Aspart 0 unit 09/17/16 22:00 09/18/16 11:17 Novolog SC 3 unit ACHS ANTHONY Administration Protocol Losartan Potassium 50 mg 09/15/16 10:00 09/18/16 09:47 Cozaar PO 50 mg DAILY ANTHONY Administration Rosuvastatin Calcium 5 mg 09/15/16 22:00 09/17/16 22:02 Crestor NG 5 mg HS ANTHONY Administration Spironolactone 25 mg 09/15/16 16:15 09/18/16 09:47 Aldactone NG 25 mg DAILY ANTHONY Administration - Patient Studies Lab Studies: Lab Studies 09/18/16 09/18/16 09/18/16 Range/Units 11:16 07:29 06:24 WBC (4.8-10.8) K/uL RBC (3.80-5.20) Mil/uL Hgb (11.0-16.0) g/dL Hct (34.0-47.0) % MCV (81.0-99.0) fL MCH (27.0-31.0) pg MCHC (33.0-37.0) g/dL RDW (11.5-14.5) % Plt Count (130-400) K/uL MPV (7.2-11.7) fL Neut % (Auto) (50.0-75.0) % Lymph % (Auto) (20.0-40.0) % [place] % (Auto) (0.0-10.0) % Eos % (Auto) (0.0-4.0) % Baso % (Auto) (0.0-2.0) % Neut # (1.8-7.0) K/uL Lymph # (1.0-4.3) K/uL [place] # (0.0-0.8) K/uL Eos # (0.0-0.7) K/uL Baso # (0.0-0.2) K/uL Differential Comment Sodium 142 (132-148) mmol/L Potassium 4.0 (3.6-5.2) mmol/L Chloride 102 (98-107) mmol/L Carbon Dioxide 28 (22-30) mmol/L Anion Gap 15 (10-20) BUN 29 H (7-17) mg/dL Creatinine 1.2 (0.7-1.2) MG/DL Est GFR ( Amer) 52 Est GFR (Non-Af Amer) 43 POC Glucose (mg/dL) 289 H 170 H (65-110) mg/dL Random Glucose 129 H (65-105) mg/dL Calcium 8.7 (8.6-10.4) mg/dl Phosphorus 4.7 H (2.5-4.5) mg/dL Magnesium 2.2 (1.6-2.3) mg/dL Total Bilirubin 0.6 (0.2-1.3) mg/dL AST 55 H D (14-36) U/L ALT 25 (9-52) U/L Alkaline Phosphatase 49 (38-126) U/L Total Protein 6.4 (6.3-8.3) g/dL Albumin 3.4 L (3.5-5.0) g/dL Globulin 3.0 (2.2-3.9) gm/dL Albumin/Globulin Ratio 1.1 (1.0-2.1) C.trachomatis RNA (TMA) (Not Detected) N.gonorrhoeae RNA (TMA) (Not Detected) 09/18/16 09/17/16 09/17/16 Range/Units 06:24 23:55 21:25 WBC 8.7 (4.8-10.8) K/uL RBC 3.32 L (3.80-5.20) Mil/uL Hgb 10.1 L (11.0-16.0) g/dL Hct 30.8 L (34.0-47.0) % MCV 92.7 (81.0-99.0) fL MCH 30.4 (27.0-31.0) pg MCHC 32.8 L (33.0-37.0) g/dL RDW 13.8 (11.5-14.5) % Plt Count 157 (130-400) K/uL MPV 9.9 (7.2-11.7) fL Neut % (Auto) 66.6 (50.0-75.0) % Lymph % (Auto) 21.7 (20.0-40.0) % [place] % (Auto) 7.2 (0.0-10.0) % Eos % (Auto) 4.2 H (0.0-4.0) % Baso % (Auto) 0.3 (0.0-2.0) % Neut # 5.8 (1.8-7.0) K/uL Lymph # 1.9 (1.0-4.3) K/uL [place] # 0.6 (0.0-0.8) K/uL Eos # 0.4 (0.0-0.7) K/uL Baso # 0.0 (0.0-0.2) K/uL Differential Comment Sodium (132-148) mmol/L Potassium (3.6-5.2) mmol/L Chloride (98-107) mmol/L Carbon Dioxide (22-30) mmol/L Anion Gap (10-20) BUN (7-17) mg/dL Creatinine (0.7-1.2) MG/DL Est GFR ( Amer) Est GFR (Non-Af Amer) POC Glucose (mg/dL) 141 H 171 H (65-110) mg/dL Random Glucose (65-105) mg/dL Calcium (8.6-10.4) mg/dl Phosphorus (2.5-4.5) mg/dL Magnesium (1.6-2.3) mg/dL Total Bilirubin (0.2-1.3) mg/dL AST (14-36) U/L ALT (9-52) U/L Alkaline Phosphatase (38-126) U/L Total Protein (6.3-8.3) g/dL Albumin (3.5-5.0) g/dL Globulin (2.2-3.9) gm/dL Albumin/Globulin Ratio (1.0-2.1) C.trachomatis RNA (TMA) (Not Detected) N.gonorrhoeae RNA (TMA) (Not Detected) 09/17/16 09/15/16 Range/Units 16:22 Unknown WBC (4.8-10.8) K/uL RBC (3.80-5.20) Mil/uL Hgb (11.0-16.0) g/dL Hct (34.0-47.0) % MCV (81.0-99.0) fL MCH (27.0-31.0) pg MCHC (33.0-37.0) g/dL RDW (11.5-14.5) % Plt Count (130-400) K/uL MPV (7.2-11.7) fL Neut % (Auto) (50.0-75.0) % Lymph % (Auto) (20.0-40.0) % [place] % (Auto) (0.0-10.0) % Eos % (Auto) (0.0-4.0) % Baso % (Auto) (0.0-2.0) % Neut # (1.8-7.0) K/uL Lymph # (1.0-4.3) K/uL [place] # (0.0-0.8) K/uL Eos # (0.0-0.7) K/uL Baso # (0.0-0.2) K/uL Differential Comment Sodium (132-148) mmol/L Potassium (3.6-5.2) mmol/L Chloride (98-107) mmol/L Carbon Dioxide (22-30) mmol/L Anion Gap (10-20) BUN (7-17) mg/dL Creatinine (0.7-1.2) MG/DL Est GFR ( Amer) Est GFR (Non-Af Amer) POC Glucose (mg/dL) 141 H (65-110) mg/dL Random Glucose (65-105) mg/dL Calcium (8.6-10.4) mg/dl Phosphorus (2.5-4.5) mg/dL Magnesium (1.6-2.3) mg/dL Total Bilirubin (0.2-1.3) mg/dL AST (14-36) U/L ALT (9-52) U/L Alkaline Phosphatase (38-126) U/L Total Protein (6.3-8.3) g/dL Albumin (3.5-5.0) g/dL Globulin (2.2-3.9) gm/dL Albumin/Globulin Ratio (1.0-2.1) C.trachomatis RNA (TMA) Not detected (Not Detected) N.gonorrhoeae RNA (TMA) Not detected (Not Detected) Laboratory Results - last 24 hr 09/15/16 09/17/16 09/17/16 Unknown 16:22 21:25 WBC RBC Hgb Hct MCV MCH MCHC RDW Plt Count MPV Neut % (Auto) Lymph % (Auto) [place] % (Auto) Eos % (Auto) Baso % (Auto) Neut # Lymph # [place] # Eos # Baso # Differential Comment Sodium Potassium Chloride Carbon Dioxide Anion Gap BUN Creatinine Est GFR ( Amer) Est GFR (Non-Af Amer) POC Glucose (mg/dL) 141 H 171 H Random Glucose Calcium Phosphorus Magnesium Total Bilirubin AST ALT Alkaline Phosphatase Total Protein Albumin Globulin Albumin/Globulin Ratio C.trachomatis RNA (TMA) Not detected N.gonorrhoeae RNA (TMA) Not detected 09/17/16 09/18/16 09/18/16 23:55 06:24 06:24 WBC 8.7 RBC 3.32 L Hgb 10.1 L Hct 30.8 L MCV 92.7 MCH 30.4 MCHC 32.8 L RDW 13.8 Plt Count 157 MPV 9.9 Neut % (Auto) 66.6 Lymph % (Auto) 21.7 [place] % (Auto) 7.2 Eos % (Auto) 4.2 H Baso % (Auto) 0.3 Neut # 5.8 Lymph # 1.9 [place] # 0.6 Eos # 0.4 Baso # 0.0 Differential Comment Sodium 142 Potassium 4.0 Chloride 102 Carbon Dioxide 28 Anion Gap 15 BUN 29 H Creatinine 1.2 Est GFR ( Amer) 52 Est GFR (Non-Af Amer) 43 POC Glucose (mg/dL) 141 H Random Glucose 129 H Calcium 8.7 Phosphorus 4.7 H Magnesium 2.2 Total Bilirubin 0.6 AST 55 H D ALT 25 Alkaline Phosphatase 49 Total Protein 6.4 Albumin 3.4 L Globulin 3.0 Albumin/Globulin Ratio 1.1 C.trachomatis RNA (TMA) N.gonorrhoeae RNA (TMA) 09/18/16 09/18/16 07:29 11:16 WBC RBC Hgb Hct MCV MCH MCHC RDW Plt Count MPV Neut % (Auto) Lymph % (Auto) [place] % (Auto) Eos % (Auto) Baso % (Auto) Neut # Lymph # [place] # Eos # Baso # Differential Comment Sodium Potassium Chloride Carbon Dioxide Anion Gap BUN Creatinine Est GFR ( Amer) Est GFR (Non-Af Amer) POC Glucose (mg/dL) 170 H 289 H Random Glucose Calcium Phosphorus Magnesium Total Bilirubin AST ALT Alkaline Phosphatase Total Protein Albumin Globulin Albumin/Globulin Ratio C.trachomatis RNA (TMA) N.gonorrhoeae RNA (TMA) Fingerstick Blood Sugar Results: 289 Review of Systems - Constitutional Constitutional: absent: Fever, Chills - EENT Eyes: absent: Blurred Vision, Change in Vision Ears: absent: Decreased Hearing - Cardiovascular Cardiovascular: absent: Chest Pain, Dyspnea - Respiratory Respiratory: absent: Dyspnea, Dyspnea on Exertion - Gastrointestinal Gastrointestinal: absent: Abdominal Pain, Nausea, Vomiting - Genitourinary Genitourinary: absent: Dysuria - Musculoskeletal Musculoskeletal: absent: Numbness, Tingling - Integumentary Integumentary: absent: Wounds - Neurological Neurological: absent: Tingling, Weakness Critical Care Progress Note - Nutrition Nutrition: Nutrition Category Date Time Status Pureed [Dysphagia/Modified Consistency Diet] [DIET] Diets 09/18/16 Lunch Active Assessment/Plan - Assessment and Plan (Free Text) Assessment: 81 yo F with PMHx of HTN, DM, hyperlipidemia, CVA 2003, Breast cancer 2013 ( Left mastectomy) presenting with worsening shortness of breath. Pt intubated in ED. CT Chest indicating pneumonia on right. Plan: Neuro: AAOx3 Hx of stroke Continue Home meds: ASA 81mg NG Daily Plavix 75mg NG Daily CV: CHF Dr. Loya/Diogo, Cardiology, help appreciated: - OPDX ECHO (05/2016): EF 35-40% - Acute on chronic systolic HF, minimal inc in troponin may result from cardiomyopathy, as 01/2016 stress perfusion scan was normal - Per Dr. Lind, pt had [facility] on in past, but disconnected due to poor tolerance by pt; will consider cardiac cath as OPDX BNP: 2280 (previous admission: 4060) Troponin: 0.012 > 0.2340 - believed CHF related - ECHO (09/15/16): LV systolic function severely limited, EF 20-25%, HTN heart disease, diastolic dysfunction, Mild aortic regurgitation, No pulmonary HTN, mild valvular regurgitation (see full report) Coreg 3.125mg NG Daily Cozaar 50mg PO Daily Lasix 40mg IV daily Aldactone 25mg PO daily HTN Pt has been hypo/normotensive since admission Coreg 3.125mg PO Daily Cozaar 50mg PO Daily CAD ASA 81mg NG Daily Plavix 75mg NG Daily Crestor 5 mg NG HS Pulm: Questionable Aspiration PNA - Due to pt being afebrile, central nature of infiltrate believed aspiration CXR (09/15/16): worsening, now severe, airspace opacification within the right lung with milder increased interstitial lung markings in the left lung, which may represent worsening edema and/or infiltrate. CXR (09/16/16): Moderate venous congestion. Low lying ETT 1.3 cm above [place]. ( see full report) CT Chest (09/15/16): Moderate bibasilar infiltrates. Large right upper lobe area of consolidation, probably pneumonia. Recommend follow up. (see full report) - atypical serology: negative Blood culture (09/15/16): No growth for 3 days x 2 MRSA (09/15/16): Not detected Zosyn 2.25gm IV Q8H Acute respiratory failure Extubated 09/16, tolerating 4L NC O2 100% Endo: T2DM - accuchecks ACHS - ISS (low) - A1C: 7.3 GI: Extubated, Discontinue Tubefeedings Swallow eval: pureed, thin liquid Minimal increase in AST - monitor Renal/: CKD stage III BUN/Cr 23/1.3, slight improvement from 311.4 on admission Monitor Hyperphosphatemia - resolved ID: No leukocytosis, Afebrile Prophylaxis: Lovenox 40mg SC Daily Pepcid 20mg IV Q12H SCDs PT/OT <Kody Crain - Last Filed: 09/18/16 17:31> CCU Objective - Vital Signs / Intake & Output Vital Signs (Last 4 hours): Vital Signs Pulse Resp BP 09/18/16 14:20 62 20 09/18/16 14:10 62 23 09/18/16 14:00 61 17 09/18/16 13:52 60 22 86/54 L 09/18/16 13:50 59 L 20 09/18/16 13:40 61 20 09/18/16 13:39 59 L 20 86/46 L 09/18/16 13:34 63 15 Intake and Output (Last 8hrs): Intake & Output 09/18/16 09/18/16 09/18/16 06:59 14:59 22:59 Intake Total 100 805 Output Total 310 600 Balance -210 205 Weight 165 lb Intake: Intake, IV Amount 50 50 Right Antecubital 50 50 Oral 50 755 Output: Urine 310 600 Urethral (Lassiter) 310 550 Urine, Voided 50 - Medications Active Medications: Active Medications Generic Name Dose Route Start Last Admin Trade Name Freq PRN Reason Stop Dose Admin Aspirin 81 mg 09/15/16 10:00 09/18/16 09:48 Aspirin Chewable NG 81 mg DAILY ANTHONY Administration Carvedilol 3.125 mg 09/15/16 10:00 09/18/16 09:47 Coreg NG 3.125 mg DAILY ANTHONY Administration Clopidogrel Bisulfate 75 mg 09/15/16 10:00 09/18/16 09:47 Plavix NG 75 mg DAILY ANTHONY Administration Enoxaparin Sodium 40 mg 09/15/16 10:00 09/18/16 09:37 Lovenox SC 40 mg DAILY ANTHONY Administration Famotidine 20 mg 09/16/16 22:00 09/18/16 09:47 Pepcid IVP 20 mg DAILY ANTHONY Administration Furosemide 40 mg 09/15/16 10:00 09/18/16 09:37 Lasix IVP 40 mg DAILY ANTHONY Administration Piperacillin Sod/Tazobactam Sod 2.25 gm in 50 mls @ 100 mls/hr 09/15/16 11:30 09/18/16 11:18 Zosyn 2.25 Gm Iv Premix IVPB 100 mls/hr Q8H ANTHONY Administration Insulin Aspart 0 unit 09/17/16 22:00 09/18/16 16:45 Novolog SC 1 unit ACHS ANTHONY Administration Protocol Losartan Potassium 50 mg 09/15/16 10:00 09/18/16 09:47 Cozaar PO 50 mg DAILY ANTHONY Administration Metformin HCl 850 mg 09/18/16 17:00 09/18/16 16:46 Glucophage PO 850 mg DAILY@0800 ANTHONY Administration Rosuvastatin Calcium 5 mg 09/15/16 22:00 09/17/16 22:02 Crestor NG 5 mg HS ANTHONY Administration Spironolactone 25 mg 09/15/16 16:15 09/18/16 09:47 Aldactone NG 25 mg DAILY ANTHONY Administration - Patient Studies Lab Studies: Lab Studies 09/18/16 09/18/16 09/18/16 Range/Units 16:23 11:16 07:29 WBC (4.8-10.8) K/uL RBC (3.80-5.20) Mil/uL Hgb (11.0-16.0) g/dL Hct (34.0-47.0) % MCV (81.0-99.0) fL MCH (27.0-31.0) pg MCHC (33.0-37.0) g/dL RDW (11.5-14.5) % Plt Count (130-400) K/uL MPV (7.2-11.7) fL Neut % (Auto) (50.0-75.0) % Lymph % (Auto) (20.0-40.0) % [place] % (Auto) (0.0-10.0) % Eos % (Auto) (0.0-4.0) % Baso % (Auto) (0.0-2.0) % Neut # (1.8-7.0) K/uL Lymph # (1.0-4.3) K/uL [place] # (0.0-0.8) K/uL Eos # (0.0-0.7) K/uL Baso # (0.0-0.2) K/uL Differential Comment Sodium (132-148) mmol/L Potassium (3.6-5.2) mmol/L Chloride (98-107) mmol/L Carbon Dioxide (22-30) mmol/L Anion Gap (10-20) BUN (7-17) mg/dL Creatinine (0.7-1.2) MG/DL Est GFR ( Amer) Est GFR (Non-Af Amer) POC Glucose (mg/dL) 188 H 289 H 170 H (65-110) mg/dL Random Glucose (65-105) mg/dL Calcium (8.6-10.4) mg/dl Phosphorus (2.5-4.5) mg/dL Magnesium (1.6-2.3) mg/dL Total Bilirubin (0.2-1.3) mg/dL AST (14-36) U/L ALT (9-52) U/L Alkaline Phosphatase (38-126) U/L Total Protein (6.3-8.3) g/dL Albumin (3.5-5.0) g/dL Globulin (2.2-3.9) gm/dL Albumin/Globulin Ratio (1.0-2.1) C.trachomatis RNA (TMA) (Not Detected) N.gonorrhoeae RNA (TMA) (Not Detected) 09/18/16 09/18/16 09/17/16 Range/Units 06:24 06:24 23:55 WBC 8.7 (4.8-10.8) K/uL RBC 3.32 L (3.80-5.20) Mil/uL Hgb 10.1 L (11.0-16.0) g/dL Hct 30.8 L (34.0-47.0) % MCV 92.7 (81.0-99.0) fL MCH 30.4 (27.0-31.0) pg MCHC 32.8 L (33.0-37.0) g/dL RDW 13.8 (11.5-14.5) % Plt Count 157 (130-400) K/uL MPV 9.9 (7.2-11.7) fL Neut % (Auto) 66.6 (50.0-75.0) % Lymph % (Auto) 21.7 (20.0-40.0) % [place] % (Auto) 7.2 (0.0-10.0) % Eos % (Auto) 4.2 H (0.0-4.0) % Baso % (Auto) 0.3 (0.0-2.0) % Neut # 5.8 (1.8-7.0) K/uL Lymph # 1.9 (1.0-4.3) K/uL [place] # 0.6 (0.0-0.8) K/uL Eos # 0.4 (0.0-0.7) K/uL Baso # 0.0 (0.0-0.2) K/uL Differential Comment Sodium 142 (132-148) mmol/L Potassium 4.0 (3.6-5.2) mmol/L Chloride 102 (98-107) mmol/L Carbon Dioxide 28 (22-30) mmol/L Anion Gap 15 (10-20) BUN 29 H (7-17) mg/dL Creatinine 1.2 (0.7-1.2) MG/DL Est GFR ( Amer) 52 Est GFR (Non-Af Amer) 43 POC Glucose (mg/dL) 141 H (65-110) mg/dL Random Glucose 129 H (65-105) mg/dL Calcium 8.7 (8.6-10.4) mg/dl Phosphorus 4.7 H (2.5-4.5) mg/dL Magnesium 2.2 (1.6-2.3) mg/dL Total Bilirubin 0.6 (0.2-1.3) mg/dL AST 55 H D (14-36) U/L ALT 25 (9-52) U/L Alkaline Phosphatase 49 (38-126) U/L Total Protein 6.4 (6.3-8.3) g/dL Albumin 3.4 L (3.5-5.0) g/dL Globulin 3.0 (2.2-3.9) gm/dL Albumin/Globulin Ratio 1.1 (1.0-2.1) C.trachomatis RNA (TMA) (Not Detected) N.gonorrhoeae RNA (TMA) (Not Detected) 09/17/16 09/15/16 Range/Units 21:25 Unknown WBC (4.8-10.8) K/uL RBC (3.80-5.20) Mil/uL Hgb (11.0-16.0) g/dL Hct (34.0-47.0) % MCV (81.0-99.0) fL MCH (27.0-31.0) pg MCHC (33.0-37.0) g/dL RDW (11.5-14.5) % Plt Count (130-400) K/uL MPV (7.2-11.7) fL Neut % (Auto) (50.0-75.0) % Lymph % (Auto) (20.0-40.0) % [place] % (Auto) (0.0-10.0) % Eos % (Auto) (0.0-4.0) % Baso % (Auto) (0.0-2.0) % Neut # (1.8-7.0) K/uL Lymph # (1.0-4.3) K/uL [place] # (0.0-0.8) K/uL Eos # (0.0-0.7) K/uL Baso # (0.0-0.2) K/uL Differential Comment Sodium (132-148) mmol/L Potassium (3.6-5.2) mmol/L Chloride (98-107) mmol/L Carbon Dioxide (22-30) mmol/L Anion Gap (10-20) BUN (7-17) mg/dL Creatinine (0.7-1.2) MG/DL Est GFR ( Amer) Est GFR (Non-Af Amer) POC Glucose (mg/dL) 171 H (65-110) mg/dL Random Glucose (65-105) mg/dL Calcium (8.6-10.4) mg/dl Phosphorus (2.5-4.5) mg/dL Magnesium (1.6-2.3) mg/dL Total Bilirubin (0.2-1.3) mg/dL AST (14-36) U/L ALT (9-52) U/L Alkaline Phosphatase (38-126) U/L Total Protein (6.3-8.3) g/dL Albumin (3.5-5.0) g/dL Globulin (2.2-3.9) gm/dL Albumin/Globulin Ratio (1.0-2.1) C.trachomatis RNA (TMA) Not detected (Not Detected) N.gonorrhoeae RNA (TMA) Not detected (Not Detected) Laboratory Results - last 24 hr 09/15/16 09/17/16 09/17/16 Unknown 21:25 23:55 WBC RBC Hgb Hct MCV MCH MCHC RDW Plt Count MPV Neut % (Auto) Lymph % (Auto) [place] % (Auto) Eos % (Auto) Baso % (Auto) Neut # Lymph # [place] # Eos # Baso # Differential Comment Sodium Potassium Chloride Carbon Dioxide Anion Gap BUN Creatinine Est GFR ( Amer) Est GFR (Non-Af Amer) POC Glucose (mg/dL) 171 H 141 H Random Glucose Calcium Phosphorus Magnesium Total Bilirubin AST ALT Alkaline Phosphatase Total Protein Albumin Globulin Albumin/Globulin Ratio C.trachomatis RNA (TMA) Not detected N.gonorrhoeae RNA (TMA) Not detected 09/18/16 09/18/16 09/18/16 06:24 06:24 07:29 WBC 8.7 RBC 3.32 L Hgb 10.1 L Hct 30.8 L MCV 92.7 MCH 30.4 MCHC 32.8 L RDW 13.8 Plt Count 157 MPV 9.9 Neut % (Auto) 66.6 Lymph % (Auto) 21.7 [place] % (Auto) 7.2 Eos % (Auto) 4.2 H Baso % (Auto) 0.3 Neut # 5.8 Lymph # 1.9 [place] # 0.6 Eos # 0.4 Baso # 0.0 Differential Comment Sodium 142 Potassium 4.0 Chloride 102 Carbon Dioxide 28 Anion Gap 15 BUN 29 H Creatinine 1.2 Est GFR ( Amer) 52 Est GFR (Non-Af Amer) 43 POC Glucose (mg/dL) 170 H Random Glucose 129 H Calcium 8.7 Phosphorus 4.7 H Magnesium 2.2 Total Bilirubin 0.6 AST 55 H D ALT 25 Alkaline Phosphatase 49 Total Protein 6.4 Albumin 3.4 L Globulin 3.0 Albumin/Globulin Ratio 1.1 C.trachomatis RNA (TMA) N.gonorrhoeae RNA (TMA) 09/18/16 09/18/16 11:16 16:23 WBC RBC Hgb Hct MCV MCH MCHC RDW Plt Count MPV Neut % (Auto) Lymph % (Auto) [place] % (Auto) Eos % (Auto) Baso % (Auto) Neut # Lymph # [place] # Eos # Baso # Differential Comment Sodium Potassium Chloride Carbon Dioxide Anion Gap BUN Creatinine Est GFR ( Amer) Est GFR (Non-Af Amer) POC Glucose (mg/dL) 289 H 188 H Random Glucose Calcium Phosphorus Magnesium Total Bilirubin AST ALT Alkaline Phosphatase Total Protein Albumin Globulin Albumin/Globulin Ratio C.trachomatis RNA (TMA) N.gonorrhoeae RNA (TMA) Critical Care Progress Note - Nutrition Nutrition: Nutrition Category Date Time Status Pureed [Dysphagia/Modified Consistency Diet] [DIET] Diets 09/18/16 Lunch Active Attending/Attestation - Attestation I have personally seen and examined this patient.: Yes I have fully participated in the care of the patient.: Yes I have reviewed all pertinent clinical information: Yes Notes (Text): 09/18/16 17:31 I have seen and examined the patient. Medical records, lab studies, and imaging were reviewed by me and a management plan was formulated on multidisciplinary rounds with resident . I agree with their above documented assessment and plan. Patient is clinically stable for downgrade to the floors. Critical Care Time 35 minutes. Multi-disciplinary rounds were performed with house staff, nursing, speech therapy, respiratory therapy, pharmacy and nutrition with integrated input from the primary team/attending and other consulting services. The documented time is cumulative and includes review of patient data/exams/labs/chart review and examination of the patient on rounds and throughout the day; time is exclusive of any procedures or teaching time.
--- NOTE | 2016-09-19 00:08 | CP.PCM.PN ---
Subjective - Date & Time of Evaluation Date of Evaluation: 09/18/16 - Subjective Subjective: Pt seen and examined sitting inchair in ICU . less short of breath Pt breathing well today, O2 sats 100% on 4L NC. She denies chest pain, SOB, abdominal pain, N/V. Tolerating diet, lassiter discontinued.vitals stable ECHO shows EF of 15-20 percent Objective - Vital Signs/Intake and Output Vital Signs (last 24 hours): Temp Pulse Resp BP Pulse Ox 98.3 F 59 L 16 103/65 99 09/18/16 08:49 09/18/16 20:30 09/18/16 20:30 09/18/16 17:33 09/18/16 20:30 Intake and Output: 09/18/16 09/19/16 18:59 06:59 Intake Total 965 Output Total 800 Balance 165 - Medications Medications: Current Medications Aspirin (Aspirin Chewable) 81 mg NG DAILY [facility] Last Admin: 09/18/16 09:48 Dose: 81 mg Carvedilol (Coreg) 3.125 mg NG DAILY [facility] Last Admin: 09/18/16 09:47 Dose: 3.125 mg Clopidogrel Bisulfate (Plavix) 75 mg NG DAILY [facility] Last Admin: 09/18/16 09:47 Dose: 75 mg Enoxaparin Sodium (Lovenox) 40 mg SC DAILY [facility] Last Admin: 09/18/16 09:37 Dose: 40 mg Famotidine (Pepcid) 20 mg IVP DAILY [facility] Last Admin: 09/18/16 09:47 Dose: 20 mg Furosemide (Lasix) 40 mg IVP DAILY [facility] Last Admin: 09/18/16 09:37 Dose: 40 mg Piperacillin Sod/Tazobactam Sod (Zosyn 2.25 Gm Iv Premix) 2.25 gm in 50 mls @ 100 mls/hr IVPB Q8H [facility] Last Admin: 09/18/16 18:41 Dose: 100 mls/hr Insulin Aspart (Novolog) 0 unit SC ACHS [facility] PRN Reason: Protocol Last Admin: 09/18/16 21:52 Dose: Not Given Losartan Potassium (Cozaar) 50 mg PO DAILY [facility] Last Admin: 09/18/16 09:47 Dose: 50 mg Metformin HCl (Glucophage) 850 mg PO DAILY@0800 [facility] Last Admin: 05/04/17 16:46 Dose: 850 mg Rosuvastatin Calcium (Crestor) 5 mg NG HS [facility] Last Admin: 09/18/16 21:54 Dose: 5 mg Spironolactone (Aldactone) 25 mg NG DAILY [facility] Last Admin: 09/18/16 09:47 Dose: 25 mg - Labs Labs: 09/18/16 06:24 09/18/16 06:24 PT 11.3 SECONDS (9.7-12.2) 09/15/16 02:21 INR 1.0 09/15/16 02:21 APTT 28 SECONDS (21-34) 09/15/16 02:21 - Constitutional Appears: No Acute Distress - Head Exam Head Exam: ATRAUMATIC, NORMAL INSPECTION, NORMOCEPHALIC - Eye Exam Eye Exam: EOMI, Normal appearance, PERRL Pupil Exam: NORMAL ACCOMODATION, PERRL - ENT Exam ENT Exam: Mucous Membranes Moist, Normal Exam - Respiratory Exam Respiratory Exam: Decreased Breath Sounds, Rales, Rhonchi - Cardiovascular Exam Cardiovascular Exam: +S1, +S2, Murmur Additional comments: 2/6 ESM S3 positiv - GI/Abdominal Exam GI & Abdominal Exam: Soft, Normal Bowel Sounds. absent: Tenderness - Neurological Exam Neurological Exam: Alert, Awake, CN II-XII Intact, Normal Gait, Oriented x3 Assessment and Plan (1) Acute pulmonary edema Status: Acute (2) Respiratory failure Status: Acute (3) CHF, acute Status: Acute (4) Pneumonia Status: Acute
[2016-09-19] MEDS: Piperacill/Tazo 2.25gm in Dex 2.25 GM/50 ML BAG IVPB SCH ×3 (04:05→18:45)
[2016-09-19] MEDS: (Novolog) Insulin Aspart, Recombinant 100 u/ml 10 ml vial SC SCH ×4 (08:17→21:36)
[2016-09-19] MEDS: Enoxaparin 40 mg Syringe SC SCH (09:46)
--- NOTE | 2016-09-19 12:28 | CP.PCM.PN ---
Subjective - Date & Time of Evaluation Date of Evaluation: 09/19/16 Time of Evaluation: 12:26 - Subjective Subjective: No new complaints Breathing better No fever No CP Objective - Vital Signs/Intake and Output Vital Signs (last 24 hours): Temp Pulse Resp BP Pulse Ox 97.7 F 60 20 88/45 L 100 09/19/16 08:00 09/19/16 08:00 09/19/16 08:00 09/19/16 09:45 09/19/16 08:00 Intake and Output: 09/19/16 09/19/16 06:59 18:59 Intake Total 500 240 Output Total 350 Balance 150 240 - Medications Medications: Current Medications Aspirin (Aspirin Chewable) 81 mg NG DAILY [facility] Last Admin: 09/19/16 11:16 Dose: 81 mg Carvedilol (Coreg) 3.125 mg NG DAILY [facility] Last Admin: 09/18/16 09:47 Dose: 3.125 mg Clopidogrel Bisulfate (Plavix) 75 mg NG DAILY [facility] Last Admin: 09/19/16 09:47 Dose: 75 mg Enoxaparin Sodium (Lovenox) 40 mg SC DAILY [facility] Last Admin: 09/19/16 09:46 Dose: 40 mg Famotidine (Pepcid) 20 mg IVP DAILY [facility] Last Admin: 09/19/16 09:46 Dose: 20 mg Furosemide (Lasix) 40 mg IVP DAILY [facility] Last Admin: 09/18/16 09:37 Dose: 40 mg Piperacillin Sod/Tazobactam Sod (Zosyn 2.25 Gm Iv Premix) 2.25 gm in 50 mls @ 100 mls/hr IVPB Q8H [facility] Last Admin: 09/19/16 11:16 Dose: 100 mls/hr Insulin Aspart (Novolog) 0 unit SC ACHS [facility] PRN Reason: Protocol Last Admin: 09/19/16 12:17 Dose: 3 unit Losartan Potassium (Cozaar) 50 mg PO DAILY [facility] Last Admin: 09/18/16 09:47 Dose: 50 mg Metformin HCl (Glucophage) 850 mg PO DAILY@0800 [facility] Last Admin: 09/19/16 08:13 Dose: 850 mg Rosuvastatin Calcium (Crestor) 5 mg NG HS [facility] Last Admin: 09/18/16 21:54 Dose: 5 mg Spironolactone (Aldactone) 25 mg NG DAILY [facility] Last Admin: 09/18/16 09:47 Dose: 25 mg - Labs Labs: 09/18/16 06:24 09/18/16 06:24 PT 11.3 SECONDS (9.7-12.2) 09/15/16 02:21 INR 1.0 09/15/16 02:21 APTT 28 SECONDS (21-34) 09/15/16 02:21 - Constitutional Appears: Chronically Ill - Head Exam Head Exam: ATRAUMATIC, NORMAL INSPECTION, NORMOCEPHALIC - Eye Exam Eye Exam: EOMI, Normal appearance - ENT Exam ENT Exam: Mucous Membranes Moist - Neck Exam Neck Exam: Full ROM. absent: Tenderness, Thyromegaly - Respiratory Exam Respiratory Exam: Clear to Ausculation Bilateral. absent: Wheezes - Cardiovascular Exam Cardiovascular Exam: REGULAR RHYTHM, +S1, +S2, Murmur. absent: +S4 - GI/Abdominal Exam GI & Abdominal Exam: Normal Bowel Sounds. absent: Organomegaly - Extremities Exam Extremities Exam: absent: Pedal Edema - Neurological Exam Neurological Exam: Alert, Awake Neuro motor strength exam: Left Upper Extremity: 4, Right Upper Extremity: 4, Left Lower Extremity: 4, Right Lower Extremity: 4 - Psychiatric Exam Psychiatric exam: Normal Affect, Normal Mood - Skin Skin Exam: Normal Color, Warm Assessment and Plan - Assessment and Plan (Free Text) Assessment: 81 y/o with acute repiratory failure now s/p extubation. * CXRAY images viewed by me findings with congestion and prominent hazyness of the R. lung lance suggests PNA * CKD stage 3 * ECHO images viewed by me shows severe LV dysfunction, but Stage I diastolic dysfunction suggests a normal left atrial pressure * Labs: Normal H/H, No leukocytosis, minimal inc in AST * Acute on chronic systolic HF with inc NTPBNP and minimal inc in troponin may be related to cardiomyopathy Cont current Rx and vent support Continue abx as per primary team. Continue pulmonary toilet. Encourage PT when tolerating. DVT prophylaxsis No plans for cardiac cath will consider as outpatient. Cont CHF RX: with aldactone, coreg, losartan and lasix. Monitor BP and titrate meds if tolerated. PT and d/c planning with outpatient f/u. ? Need for SOFI
--- NOTE | 2016-09-19 22:39 | CP.PCM.PN ---
Subjective - Date & Time of Evaluation Date of Evaluation: 09/19/16 - Subjective Subjective: Pt seen and examined, is improving,she is less short of breath, pt needs continues medical management does not need any intervention or invasive procedure for now. i discussed the case with Objective - Vital Signs/Intake and Output Vital Signs (last 24 hours): Temp Pulse Resp BP Pulse Ox 98 F 58 L 20 128/66 100 09/19/16 16:00 09/19/16 16:00 09/19/16 16:00 09/19/16 16:00 09/19/16 16:00 Intake and Output: 09/19/16 09/20/16 18:59 06:59 Intake Total 1060 Output Total 400 Balance 660 - Medications Medications: Current Medications Aspirin (Aspirin Chewable) 81 mg NG DAILY [facility] Last Admin: 09/19/16 11:16 Dose: 81 mg Carvedilol (Coreg) 3.125 mg NG DAILY [facility] Last Admin: 09/19/16 09:45 Dose: Not Given Clopidogrel Bisulfate (Plavix) 75 mg NG DAILY [facility] Last Admin: 09/19/16 09:47 Dose: 75 mg Enoxaparin Sodium (Lovenox) 40 mg SC DAILY [facility] Last Admin: 09/19/16 09:46 Dose: 40 mg Famotidine (Pepcid) 20 mg IVP DAILY [facility] Last Admin: 09/19/16 09:46 Dose: 20 mg Furosemide (Lasix) 40 mg IVP DAILY [facility] Last Admin: 09/19/16 09:45 Dose: Not Given Piperacillin Sod/Tazobactam Sod (Zosyn 2.25 Gm Iv Premix) 2.25 gm in 50 mls @ 100 mls/hr IVPB Q8H [facility] Last Admin: 09/19/16 18:45 Dose: 100 mls/hr Insulin Aspart (Novolog) 0 unit SC ACHS [facility] PRN Reason: Protocol Last Admin: 09/19/16 21:36 Dose: Not Given Losartan Potassium (Cozaar) 50 mg PO DAILY [facility] Last Admin: 09/19/16 09:45 Dose: Not Given Metformin HCl (Glucophage) 850 mg PO DAILY@0800 [facility] Last Admin: 09/19/16 08:13 Dose: 850 mg Rosuvastatin Calcium (Crestor) 5 mg NG HS [facility] Last Admin: 09/19/16 21:58 Dose: 5 mg Spironolactone (Aldactone) 25 mg NG DAILY [facility] Last Admin: 09/19/16 09:45 Dose: Not Given - Labs Labs: 09/18/16 06:24 09/18/16 06:24 PT 11.3 SECONDS (9.7-12.2) 09/15/16 02:21 INR 1.0 09/15/16 02:21 APTT 28 SECONDS (21-34) 09/15/16 02:21 - Constitutional Appears: No Acute Distress, Chronically Ill - Eye Exam Eye Exam: EOMI, Normal appearance, PERRL Pupil Exam: NORMAL ACCOMODATION, PERRL - Respiratory Exam Respiratory Exam: Decreased Breath Sounds, Rales, Rhonchi - Cardiovascular Exam Cardiovascular Exam: REGULAR RHYTHM, +S1, +S2. absent: Murmur - GI/Abdominal Exam GI & Abdominal Exam: Soft, Normal Bowel Sounds. absent: Tenderness Assessment and Plan (1) Acute pulmonary edema Status: Acute (2) Respiratory failure Status: Acute (3) CHF, acute Status: Acute (4) Pneumonia Status: Acute
[2016-09-20] MEDS: Piperacill/Tazo 2.25gm in Dex 2.25 GM/50 ML BAG IVPB SCH ×3 (04:09→19:36)
[2016-09-20] MEDS: (Novolog) Insulin Aspart, Recombinant 100 u/ml 10 ml vial SC SCH ×4 (08:41→21:32)
[2016-09-20] MEDS: Enoxaparin 40 mg Syringe SC SCH (09:21)
--- NOTE | 2016-09-20 14:10 | CP.PCM.PN ---
Subjective - Date & Time of Evaluation Date of Evaluation: 09/20/16 Time of Evaluation: 14:08 - Subjective Subjective: Feels better No CP or SOB Known chronic severe cardiomyopathy On ASA, aldactone, losartan, Coreg; Resolving PNA; No additional cardiac testing planned; suggest outpatient f/u with my partner Dr. mishra for ongoing CHF management. OK to d/c per cardiac standpoint: Objective - Vital Signs/Intake and Output Vital Signs (last 24 hours): Temp Pulse Resp BP Pulse Ox 98.3 F 60 15 108/54 L 98 09/20/16 12:00 09/20/16 12:00 09/20/16 12:00 09/20/16 12:00 09/20/16 12:00 Intake and Output: 09/20/16 09/20/16 06:59 18:59 Intake Total 550 300 Output Total 450 300 Balance 100 0 - Medications Medications: Current Medications Aspirin (Aspirin Chewable) 81 mg NG DAILY [facility] Last Admin: 09/20/16 09:26 Dose: 81 mg Carvedilol (Coreg) 3.125 mg NG DAILY [facility] Last Admin: 09/20/16 09:27 Dose: 3.125 mg Clopidogrel Bisulfate (Plavix) 75 mg NG DAILY [facility] Last Admin: 09/20/16 09:26 Dose: 75 mg Enoxaparin Sodium (Lovenox) 40 mg SC DAILY [facility] Last Admin: 09/20/16 09:21 Dose: 40 mg Famotidine (Pepcid) 20 mg IVP DAILY [facility] Last Admin: 09/20/16 09:26 Dose: 20 mg Furosemide (Lasix) 40 mg IVP DAILY [facility] Last Admin: 09/20/16 09:27 Dose: 40 mg Piperacillin Sod/Tazobactam Sod (Zosyn 2.25 Gm Iv Premix) 2.25 gm in 50 mls @ 100 mls/hr IVPB Q8H [facility] Last Admin: 09/20/16 12:13 Dose: 100 mls/hr Insulin Aspart (Novolog) 0 unit SC ACHS [facility] PRN Reason: Protocol Last Admin: 09/20/16 12:40 Dose: 2 unit Losartan Potassium (Cozaar) 50 mg PO DAILY [facility] Last Admin: 09/20/16 09:23 Dose: 50 mg Metformin HCl (Glucophage) 850 mg PO DAILY@0800 [facility] Last Admin: 09/20/16 09:00 Dose: 850 mg Rosuvastatin Calcium (Crestor) 5 mg NG HS [facility] Last Admin: 09/19/16 21:58 Dose: 5 mg Spironolactone (Aldactone) 25 mg NG DAILY [facility] Last Admin: 09/20/16 09:24 Dose: 25 mg - Labs Labs: 09/18/16 06:24 09/18/16 06:24 PT 11.3 SECONDS (9.7-12.2) 09/15/16 02:21 INR 1.0 09/15/16 02:21 APTT 28 SECONDS (21-34) 09/15/16 02:21
[2016-09-21] MEDS: Piperacill/Tazo 2.25gm in Dex 2.25 GM/50 ML BAG IVPB SCH ×2 (02:40→11:51)
--- NOTE | 2016-09-21 07:51 | CP.PCM.PN ---
Subjective - Date & Time of Evaluation Date of Evaluation: 09/20/16 - Subjective Subjective: Pt is seen and examined, Feels better, less cough,No CP or SOB,Known chronic severe cardiomyopathy Objective - Vital Signs/Intake and Output Vital Signs (last 24 hours): Temp Pulse Resp BP Pulse Ox 97.9 F 63 20 103/64 99 09/21/16 00:00 09/21/16 00:00 09/21/16 00:00 09/21/16 00:00 09/21/16 00:00 Intake and Output: 09/21/16 09/21/16 06:59 18:59 Intake Total 50 Balance 50 - Medications Medications: Current Medications Aspirin (Aspirin Chewable) 81 mg NG DAILY [facility] Last Admin: 09/20/16 09:26 Dose: 81 mg Carvedilol (Coreg) 3.125 mg NG DAILY [facility] Last Admin: 09/20/16 09:27 Dose: 3.125 mg Clopidogrel Bisulfate (Plavix) 75 mg NG DAILY [facility] Last Admin: 09/20/16 09:26 Dose: 75 mg Enoxaparin Sodium (Lovenox) 40 mg SC DAILY [facility] Last Admin: 09/20/16 09:21 Dose: 40 mg Famotidine (Pepcid) 20 mg IVP DAILY [facility] Last Admin: 09/20/16 09:26 Dose: 20 mg Furosemide (Lasix) 40 mg IVP DAILY [facility] Last Admin: 09/20/16 09:27 Dose: 40 mg Piperacillin Sod/Tazobactam Sod (Zosyn 2.25 Gm Iv Premix) 2.25 gm in 50 mls @ 100 mls/hr IVPB Q8H [facility] Last Admin: 09/21/16 02:40 Dose: 100 mls/hr Insulin Aspart (Novolog) 0 unit SC ACHS [facility] PRN Reason: Protocol Last Admin: 09/20/16 21:32 Dose: Not Given Losartan Potassium (Cozaar) 50 mg PO DAILY [facility] Last Admin: 09/20/16 09:23 Dose: 50 mg Metformin HCl (Glucophage) 850 mg PO DAILY@0800 [facility] Last Admin: 09/20/16 09:00 Dose: 850 mg Rosuvastatin Calcium (Crestor) 5 mg NG HS [facility] Last Admin: 09/20/16 21:36 Dose: 5 mg Spironolactone (Aldactone) 25 mg NG DAILY [facility] Last Admin: 09/20/16 09:24 Dose: 25 mg - Labs Labs: 09/18/16 06:24 09/18/16 06:24 PT 11.3 SECONDS (9.7-12.2) 09/15/16 02:21 INR 1.0 09/15/16 02:21 APTT 28 SECONDS (21-34) 09/15/16 02:21 - Constitutional Appears: No Acute Distress - Eye Exam Eye Exam: EOMI, Normal appearance, PERRL Pupil Exam: NORMAL ACCOMODATION, PERRL - ENT Exam ENT Exam: Mucous Membranes Moist, Normal Exam - Respiratory Exam Respiratory Exam: Decreased Breath Sounds, Rales - Cardiovascular Exam Cardiovascular Exam: REGULAR RHYTHM, +S1, +S2. absent: Murmur - GI/Abdominal Exam GI & Abdominal Exam: Soft, Normal Bowel Sounds. absent: Tenderness Assessment and Plan (1) Acute pulmonary edema Status: Acute (2) Respiratory failure Status: Acute (3) CHF, acute Status: Acute (4) Pneumonia Status: Acute
--- NOTE | 2016-09-21 08:03 | CP.PCM.PN ---
Subjective - Date & Time of Evaluation Date of Evaluation: 09/21/16 - Subjective Subjective: Pt seen and examined, is improving,she is less short of breath, pt needs continues medical management does not need any intervention or invasive procedure for now Objective - Vital Signs/Intake and Output Vital Signs (last 24 hours): Temp Pulse Resp BP Pulse Ox 97.9 F 63 20 103/64 99 09/21/16 00:00 09/21/16 00:00 09/21/16 00:00 09/21/16 00:00 09/21/16 00:00 Intake and Output: 09/21/16 09/21/16 06:59 18:59 Intake Total 50 Balance 50 - Medications Medications: Current Medications Aspirin (Aspirin Chewable) 81 mg NG DAILY [facility] Last Admin: 09/20/16 09:26 Dose: 81 mg Carvedilol (Coreg) 3.125 mg NG DAILY [facility] Last Admin: 09/20/16 09:27 Dose: 3.125 mg Clopidogrel Bisulfate (Plavix) 75 mg NG DAILY [facility] Last Admin: 09/20/16 09:26 Dose: 75 mg Enoxaparin Sodium (Lovenox) 40 mg SC DAILY [facility] Last Admin: 09/20/16 09:21 Dose: 40 mg Famotidine (Pepcid) 20 mg IVP DAILY [facility] Last Admin: 09/20/16 09:26 Dose: 20 mg Furosemide (Lasix) 40 mg IVP DAILY [facility] Last Admin: 09/20/16 09:27 Dose: 40 mg Piperacillin Sod/Tazobactam Sod (Zosyn 2.25 Gm Iv Premix) 2.25 gm in 50 mls @ 100 mls/hr IVPB Q8H [facility] Last Admin: 09/21/16 02:40 Dose: 100 mls/hr Insulin Aspart (Novolog) 0 unit SC ACHS [facility] PRN Reason: Protocol Last Admin: 09/20/16 21:32 Dose: Not Given Losartan Potassium (Cozaar) 50 mg PO DAILY [facility] Last Admin: 09/20/16 09:23 Dose: 50 mg Metformin HCl (Glucophage) 850 mg PO DAILY@0800 [facility] Last Admin: 09/20/16 09:00 Dose: 850 mg Rosuvastatin Calcium (Crestor) 5 mg NG HS [facility] Last Admin: 09/20/16 21:36 Dose: 5 mg Spironolactone (Aldactone) 25 mg NG DAILY [facility] Last Admin: 09/20/16 09:24 Dose: 25 mg - Labs Labs: 09/18/16 06:24 09/18/16 06:24 PT 11.3 SECONDS (9.7-12.2) 09/15/16 02:21 INR 1.0 09/15/16 02:21 APTT 28 SECONDS (21-34) 09/15/16 02:21 - Constitutional Appears: No Acute Distress - Head Exam Head Exam: ATRAUMATIC, NORMAL INSPECTION, NORMOCEPHALIC - Eye Exam Eye Exam: EOMI, Normal appearance, PERRL Pupil Exam: NORMAL ACCOMODATION, PERRL - Respiratory Exam Respiratory Exam: Decreased Breath Sounds, Rales, Rhonchi - Cardiovascular Exam Cardiovascular Exam: REGULAR RHYTHM, +S1, +S2. absent: Murmur - Neurological Exam Neurological Exam: Alert, Awake, CN II-XII Intact, Normal Gait, Oriented x3 - Psychiatric Exam Psychiatric exam: Normal Affect, Normal Mood Assessment and Plan (1) Acute pulmonary edema Status: Acute (2) Respiratory failure Status: Acute (3) CHF, acute Status: Acute (4) Pneumonia Status: Acute
[2016-09-21] MEDS: (Novolog) Insulin Aspart, Recombinant 100 u/ml 10 ml vial SC SCH ×4 (08:34→21:34)
[2016-09-21 11:43] LABS: HEMATOCRIT 31.2 % (34.0-47.0); MEAN CELL VOLUME 93.5 fL (81.0-99.0); MEAN CORPUSCULAR HEMOGLOBIN 30.7 pg (27.0-31.0); MEAN CORPUSCULAR HGB CONC 32.8 g/dL (33.0-37.0); RED CELL DISTRIBUTION WIDTH 13.1 % (11.5-14.5); WHITE BLOOD COUNT 5.9 K/uL (4.8-10.8)
[2016-09-21] MEDS: Enoxaparin 40 mg Syringe SC SCH (11:48)
[2016-09-21 12:10] LABS: CALCIUM 8.7 mg/dl (8.6-10.4)
--- NOTE | 2016-09-21 13:45 | RAD ---
HISTORY: CHF. COMPARISON: 09/16/2016. TECHNIQUE: Chest PA and lateral FINDINGS: LUNGS: No active pulmonary disease. PLEURA: No significant pleural effusion identified. No pneumothorax apparent. CARDIOVASCULAR: Cardiomegaly, resolved CHF. OSSEOUS STRUCTURES: No significant abnormalities. VISUALIZED UPPER ABDOMEN: Normal. OTHER FINDINGS: None. IMPRESSION: No active disease. Resolved CHF apparent on the prior study.
[2016-09-22 06:42] VITALS: PULSE 61
[2016-09-22] MEDS: (Novolog) Insulin Aspart, Recombinant 100 u/ml 10 ml vial SC SCH ×2 (08:17→12:59)
[2016-09-22 09:00] VITALS: RESP 18; TEMP 98.3; O2SAT 98
[2016-09-22] MEDS: Enoxaparin 40 mg Syringe SC SCH (10:38)
[2016-09-22 10:39] VITALS: BP 133/62
[2016-09-22] MEDS ORDERED: Pneumococcal 23-Valent Vaccine IM ONE (12:21)
--- NOTE | 2016-09-22 15:58 | PCM.HF ---
Heart Failure Core Measure - Heart Failure Ejection Fraction: Less Than 40 % (EF 25-30%) DIPESH Inhibitor Prescribed: No Contraindication/Reason for not providing: on arb Beta-Hao Prescribed: Carvedilol Angiotensin II Receptor Hao Prescribed: Yes Aldosterone Antagonist Prescribed: No Contraindication/Reason for not providing: no afib Hydralazine Nitrate Prescribed: No Contraindication/Reason for not providing: low bp Implantable Cardioverter Defibrillator Therapy: No Contraindication/Reason for not providing: will follow with cardiologyst for possible AICD Cardiac Resynchronization Therapy Prescribed: No Contraindication/Reason for not providing: not indicated - Follow up Will be discharged to: Home Follow Up Date (must be within 7 days from discharge): 09/26/16 Follow Up Time: 09:00
--- NOTE | 2016-09-22 16:01 | CP.PCM.PN ---
Subjective - Date & Time of Evaluation Date of Evaluation: 09/22/16 Time of Evaluation: 11:00 - Subjective Subjective: Awake, alert, no sob or chest pains. Objective - Vital Signs/Intake and Output Vital Signs (last 24 hours): Temp Pulse Resp BP Pulse Ox 98.3 F 61 18 133/62 98 09/22/16 07:00 09/22/16 07:00 09/22/16 07:00 09/22/16 10:38 09/22/16 07:00 - Labs Labs: 09/21/16 11:33 09/21/16 11:33 PT 11.3 SECONDS (9.7-12.2) 09/15/16 02:21 INR 1.0 09/15/16 02:21 APTT 28 SECONDS (21-34) 09/15/16 02:21 Assessment and Plan - Assessment and Plan (Free Text) Assessment: Patient is seen and examined. Alert, ambulatory. No sob or chest pains, no pedal edema noted today. D/W DR Jarvis, plan to discharge home today. To follow up in the office in 1 week.
--- NOTE | 2016-09-22 22:45 | CP.PCM.DIS ---
Provider - Provider Date of Admission: 09/15/16 03:05 Attending physician: Derrick Jarvis MD Diagnosis - Discharge Diagnosis (1) Acute pulmonary edema Status: Acute (2) Respiratory failure Status: Acute (3) CHF, acute Status: Acute (4) Pneumonia Status: Acute Hospital Course - Lab Results Lab Results: Micro Results 09/20/16 08:00 Nose MRSA Culture (Admit) - Final MRSA NOT DETECTED 09/15/16 06:02 Nose MRSA Culture (Admit) - Final MRSA NOT DETECTED Most Recent Lab Values WBC 5.9 K/uL (4.8-10.8) 09/21/16 11:33 RBC 3.34 Mil/uL (3.80-5.20) L 09/21/16 11:33 Hgb 10.2 g/dL (11.0-16.0) L 09/21/16 11:33 Hct 31.2 % (34.0-47.0) L 09/21/16 11:33 MCV 93.5 fL (81.0-99.0) 09/21/16 11:33 MCH 30.7 pg (27.0-31.0) 09/21/16 11:33 MCHC 32.8 g/dL (33.0-37.0) L 09/21/16 11:33 RDW 13.1 % (11.5-14.5) 09/21/16 11:33 Plt Count 199 K/uL (130-400) 09/21/16 11:33 MPV 9.0 fL (7.2-11.7) 09/21/16 11:33 Neut % (Auto) 66.6 % (50.0-75.0) 09/18/16 06:24 Lymph % (Auto) 21.7 % (20.0-40.0) 09/18/16 06:24 [place] % (Auto) 7.2 % (0.0-10.0) 09/18/16 06:24 Eos % (Auto) 4.2 % (0.0-4.0) H 09/18/16 06:24 Baso % (Auto) 0.3 % (0.0-2.0) 09/18/16 06:24 Neut # 5.8 K/uL (1.8-7.0) 09/18/16 06:24 Lymph # 1.9 K/uL (1.0-4.3) 09/18/16 06:24 [place] # 0.6 K/uL (0.0-0.8) 09/18/16 06:24 Eos # 0.4 K/uL (0.0-0.7) 09/18/16 06:24 Baso # 0.0 K/uL (0.0-0.2) 09/18/16 06:24 Neutrophils % (Manual) 80 % (50-75) H 09/15/16 06:32 Band Neutrophils % 6 % (0-2) H 09/15/16 06:32 Lymphocytes % (Manual) 10 % (20-40) L 09/15/16 06:32 Monocytes % (Manual) 4 % (0-10) 09/15/16 06:32 Differential Comment 09/18/16 06:24 Platelet Estimate Normal (NORMAL) 09/15/16 06:32 Polychromasia Slight 09/15/16 06:32 Ovalocytes Slight 09/15/16 06:32 PT 11.3 SECONDS (9.7-12.2) 09/15/16 02:21 INR 1.0 09/15/16 02:21 APTT 28 SECONDS (21-34) 09/15/16 02:21 Puncture Site Rr 09/16/16 05:11 pCO2 40 mm/Hg (35-45) 09/16/16 05:11 pO2 71 mm/Hg (80-100) L 09/16/16 05:11 HCO3 26.4 mmol/L (21-28) 09/16/16 05:11 ABG pH 7.43 (7.35-7.45) 09/16/16 05:11 ABG Total CO2 27.7 mmol/L (22-28) 09/16/16 05:11 ABG O2 Saturation 96.6 % (95-98) 09/16/16 05:11 ABG Base Excess 2.0 mmol/L (-2.0-3.0) 09/16/16 05:11 ABG Hemoglobin 10.9 g/dL (11.7-17.4) L 09/16/16 05:11 ABG Carboxyhemoglobin 1.1 % (0.5-1.5) 09/16/16 05:11 POC ABG HHb (Measured) 3.3 % (0.0-5.0) 09/16/16 05:11 ABG Methemoglobin 0.9 % (0.0-3.0) 09/16/16 05:11 Onofre Test Pos 09/16/16 05:11 ABG Potassium 4.5 mmol/L (3.6-5.2) 09/15/16 02:55 A-a O2 Difference 164.0 mm/Hg 09/16/16 05:11 Respiratory Index 2.3 09/16/16 05:11 Hgb O2 Saturation 94.8 % (95.0-98.0) L 09/16/16 05:11 Sodium 137.0 mmol/l (132-148) 09/15/16 02:55 Chloride 108.0 mmol/L (98-107) H 09/15/16 02:55 Glucose 276 mg/dl (65-105) H 09/15/16 02:55 Lactate 2.5 mmol/L (0.7-2.1) H 09/15/16 02:55 Mechanical Rate 16 09/16/16 05:11 FiO2 40.0 % 09/16/16 05:11 Tidal Volume 500 09/16/16 05:11 PEEP 5 09/16/16 05:11 Sodium 138 mmol/L (132-148) 09/21/16 11:33 Potassium 4.0 mmol/L (3.6-5.2) 09/21/16 11:33 Chloride 96 mmol/L (98-107) L 09/21/16 11:33 Carbon Dioxide 29 mmol/L (22-30) 09/21/16 11:33 Anion Gap 17 (10-20) 09/21/16 11:33 BUN 24 mg/dL (7-17) H 09/21/16 11:33 Creatinine 1.2 MG/DL (0.7-1.2) 09/21/16 11:33 Est GFR ( Amer) 52 09/21/16 11:33 Est GFR (Non-Af Amer) 43 09/21/16 11:33 POC Glucose (mg/dL) 263 mg/dL (65-110) H 09/22/16 11:38 Random Glucose 260 mg/dL (65-105) H 09/21/16 11:33 Hemoglobin A1c 7.3 % (4.2-6.5) H 09/16/16 06:29 Calcium 8.7 mg/dl (8.6-10.4) 09/21/16 11:33 Phosphorus 4.7 mg/dL (2.5-4.5) H 09/18/16 06:24 Magnesium 2.0 mg/dL (1.6-2.3) 09/21/16 11:33 Total Bilirubin 0.6 mg/dL (0.2-1.3) 09/18/16 06:24 AST 55 U/L (14-36) H D 09/18/16 06:24 ALT 25 U/L (9-52) 09/18/16 06:24 Alkaline Phosphatase 49 U/L (38-126) 09/18/16 06:24 Troponin I 0.1480 ng/mL (0.00-0.120) H* 09/16/16 06:56 NT-Pro-B Natriuret Pep 2280 pg/mL (0-900) H 09/15/16 02:21 Total Protein 6.4 g/dL (6.3-8.3) 09/18/16 06:24 Albumin 3.4 g/dL (3.5-5.0) L 09/18/16 06:24 Globulin 3.0 gm/dL (2.2-3.9) 09/18/16 06:24 Albumin/Globulin Ratio 1.1 (1.0-2.1) 09/18/16 06:24 Arterial Blood Potassium 4.5 mmol/L (3.6-5.2) 09/15/16 02:55 Urine Color Straw (YELLOW) 09/15/16 05:14 Urine Clarity Hazy (Clear) 09/15/16 05:14 Urine pH 5.0 (5.0-8.0) 09/15/16 05:14 Ur Specific [place] 1.006 (1.003-1.030) 09/15/16 05:14 Urine Protein Negative mg/dL (NEGATIVE) 09/15/16 05:14 Urine Glucose (UA) Normal mg/dL (Normal) 09/15/16 05:14 Urine Ketones Negative mg/dL (NEGATIVE) 09/15/16 05:14 Urine Blood 1+ (NEGATIVE) H 09/15/16 05:14 Urine Nitrate Negative (NEGATIVE) 09/15/16 05:14 Urine Bilirubin Negative (NEGATIVE) 09/15/16 05:14 Urine Urobilinogen Normal mg/dL (0.2-1.0) 09/15/16 05:14 Ur Leukocyte Esterase Neg [place]/uL (Negative) 09/15/16 05:14 Urine WBC (Auto) < 1 /hpf (0-5) 09/15/16 05:14 Urine RBC (Auto) 7 /hpf (0-3) H 09/15/16 05:14 Ur Squamous Epith Cells 1 /hpf (0-5) 09/15/16 05:14 C.trachomatis RNA (TMA) Not detected (Not Detected) 09/15/16 Unknown Ur L.pneumophila Ag Negative (NEGATIVE) 09/15/16 17:45 Mycoplasma pneumon IgM Negative (NEGATIVE) 09/15/16 17:45 N.gonorrhoeae RNA (TMA) Not detected (Not Detected) 09/15/16 Unknown - Hospital Course Hospital Course: Pt is simproved, less short of breath, pt is for discharge today Discharge Exam - Head Exam Head Exam: ATRAUMATIC, NORMAL INSPECTION, NORMOCEPHALIC - Eye Exam Eye Exam: EOMI, Normal appearance, PERRL Pupil Exam: NORMAL ACCOMODATION, PERRL - ENT Exam ENT Exam: Mucous Membranes Moist - Respiratory Exam Respiratory Exam: Decreased Breath Sounds - Cardiovascular Exam Cardiovascular Exam: REGULAR RHYTHM, +S1, +S2 - GI/Abdominal Exam GI & Abdominal Exam: Normal Bowel Sounds Discharge Plan - Discharge Medications Prescriptions: Furosemide [Lasix] 40 mg PO DAILY #30 tab - Follow Up Plan Condition: GOOD Disposition: HOME/ ROUTINE Instructions: Heart Failure (GEN), Pulmonary Edema (GEN), Dyspnea (GEN) Additional Instructions: Paciente esta estable para dealta para la casa. Porfavor llame para hacer hannah con Dr Jarvis para dentro de bina semana. Si simptomas siguen o empeoran porfavor regrese a la john paul de emergencia. Porfavor hacer hannah con Dr Lind para tratamiento cardiologico. Necesitas un cateterizacion cardiaca. Referrals: Broderick Lind MD [Staff Provider] - Derrick Jarvis MD [Staff Provider] -
== END 2016-09-22 13:45 | disposition home or self-care (01) | DRG 208 ==
LOC: C.ER 01:11 → C.9I 03:05 → C.5T 09-20 20:15
PROVIDERS: ADMIT Internal Medicine; ATTEND Internal Medicine
PROC: 5A1935Z Respiratory Ventilation, Less than 24 Consecutive Hours (ICD-10-PCS; principal; 2016-09-15)
PROC: 0BH17EZ Insertion of Endotracheal Airway into Trachea, Via Natural or Artificial Opening (ICD-10-PCS; 2016-09-15)
DX: J96.00 Acute respiratory failure, unspecified whether with hypoxia or hypercapnia (principal); J69.0 Pneumonitis due to inhalation of food and vomit; I50.23 Acute on chronic systolic (congestive) heart failure; J44.9 Chronic obstructive pulmonary disease, unspecified; E11.22 Type 2 diabetes mellitus with diabetic chronic kidney disease; I69.354 Hemiplegia and hemiparesis following cerebral infarction affecting left non-dominant side; I42.9 Cardiomyopathy, unspecified; E83.39 Other disorders of phosphorus metabolism; I13.0 Hypertensive heart and chronic kidney disease with heart failure and stage 1 through stage 4 chronic kidney disease, or unspecified chronic kidney disease; E78.5 Hyperlipidemia, unspecified; Z85.3 Personal history of malignant neoplasm of breast; K21.9 Gastro-esophageal reflux disease without esophagitis; Z87.891 Personal history of nicotine dependence; Z79.4 Long term (current) use of insulin; I25.10 Atherosclerotic heart disease of native coronary artery without angina pectoris; N18.3 Chronic kidney disease, stage 3 (moderate)

== ENCOUNTER 2017-10-16 13:39 | Inpatient (IN) | payer OTHER ==
[2017-10-16 13:39] VITALS: BMI 25.0
[2017-10-16 14:09] LABS: BASO % 0.3 % (0.0-2.0); EOS # 0.1 K/uL (0.0-0.7); EOS % 1.9 % (0.0-4.0); HEMOGLOBIN 10.9 g/dL (11.0-16.0); LYMPH # 1.5 K/uL (1.0-4.3); LYMPH % 21.9 % (20.0-40.0); MEAN CELL VOLUME 94.4 fL (81.0-99.0); MEAN CORPUSCULAR HEMOGLOBIN 32.1 pg (27.0-31.0); MONO # 0.4 K/uL (0.0-0.8); MONO % 5.7 % (0.0-10.0); NEUT # 4.7 K/uL (1.8-7.0); NEUT % 70.2 % (50.0-75.0); RBC 3.38 Mil/uL (3.80-5.20); RED CELL DISTRIBUTION WIDTH 13.9 % (11.5-14.5); WHITE BLOOD COUNT 6.7 K/uL (4.8-10.8)
[2017-10-16] MEDS ORDERED: Alum-Mag Hydrox-Simethicone Susp (30 mL) PO STA (14:12)
[2017-10-16 14:20] LABS: ALB/GLOB RATIO 1.3 (1.0-2.1); ALBUMIN 3.8 g/dL (3.5-5.0); ALT/SGPT 18 U/L (9-52); AST/SGOT 24 U/L (14-36); BLOOD UREA NITROGEN 45 mg/dL (7-17); CALCIUM 8.7 mg/dl (8.6-10.4); GFR AFRICAN-AMERICAN 26; GFR NON-AFRICAN AMERICAN 21; LIPASE 89 U/L (23-300)
[2017-10-16] MEDS ORDERED: Aluminum Hydroxide/Magnesium Hydroxide Susp (30 mL) ONE (14:27)
--- NOTE | 2017-10-16 14:51 | C.PDOC ---
History Of Present Illness 82 y/o F p/w abdominal pain x 1 day. Patient has pain in the epigastric area that she feels is similar to her typical abdominal pain that gets better with H2 sincere or omeprazole but after taking it today, the pain was not improved. Denies fever, chills, chest pain, dyspnea, vomiting, diarrhea, dysuria. Time Seen by Provider: 10/16/17 13:48 Chief Complaint (Nursing): Abdominal Pain Past Medical History Vital Signs: Last Vital Signs Temp 98.1 F 10/16/17 13:55 Pulse 60 10/16/17 13:55 Resp 18 10/16/17 13:55 BP 166/65 H 10/16/17 13:55 Pulse Ox 98 10/16/17 16:04 - Medical History PMH: CHF, COPD, HTN, Hypercholesterolemia - [facility] Procedures INSERTION OF ENDOTRACHEAL AIRWAY INTO TRACHEA, VIA OPENING (09/15/16) RESPIRATORY VENTILATION, LESS THAN 24 CONSECUTIVE HOURS (09/15/16) Family History: States: Unknown Family Hx - Social History Hx Alcohol Use: No Hx Substance Use: No Review Of Systems Except As Marked, All Systems Reviewed And Found Negative. Constitutional: Negative for: Fever Cardiovascular: Negative for: Chest Pain Physical Exam - Physical Exam Additional Physical Exam Comments: Gen: NAD Head: NC/AT Eyes: PERRL ENT: MMM Neck: Supple Chest: No tenderness CV: Regular rate Lungs: CTA b/l Abd: Soft, NT Back: No CVA tenderness Skin: No rash Extremities: No tenderness Neuro: Alert, no focal deficit ED Course And Treatment - Laboratory Results Result Diagrams: 10/16/17 14:04 10/16/17 14:04 O2 Sat by Pulse Oximetry: 98 Medical Decision Making Medical Decision Making: Will treat with Pepcid, Maalox, Zofran and reassess symptoms. EKG shows sinus rhythm, 56 bpm, ST depressions/T wave inversions laterally. Will also check enzymes. Enzymes negative. Patient states pain has not improved. Also with acute renal insufficiency. Dr. Escalante will admit to telemetry. Consult placed for Dr. Lind. Disposition Discussed With : Pamela Escalante Doctor Will See Patient In The: Hospital - Disposition Disposition: HOSPITALIZED Disposition Time: 15:40 Condition: FAIR Forms: ID [facility] ([place]) - Clinical Impression Clinical Impression: Acute electrocardiogram changes, Epigastric pain, Acute renal insufficiency
[2017-10-16 15:07] LABS: CK-MB 0.38 ng/mL (0.0-3.38)
--- NOTE | 2017-10-16 16:36 | CP.PCM.PN ---
Subjective - Date & Time of Evaluation Date of Evaluation: 10/16/17 Time of Evaluation: 16:15 - Subjective Subjective: H&P dictated #[id number] Objective - Vital Signs/Intake and Output Vital Signs (last 24 hours): Temp Pulse Resp BP Pulse Ox 98.1 F 60 18 172/52 H 100 10/16/17 13:55 10/16/17 16:21 10/16/17 16:21 10/16/17 16:21 10/16/17 16:21 - Labs Labs: 10/16/17 14:04 10/16/17 14:04
[2017-10-16] MEDS ORDERED: Sod Polystyrene Sulf 15 gm/60 ml Susp PO ONE (18:28)
[2017-10-16] MEDS: Alum-Mag Hydrox-Simethicone Susp (30 mL) PO SCH (18:50)
[2017-10-16] MEDS: (Novolog) Insulin Aspart, Recombinant 100 u/ml 10 ml vial SC SCH (21:33)
[2017-10-16 22:31] LABS: BLOOD UREA NITROGEN 43 mg/dL (7-17); CALCIUM 8.8 mg/dl (8.6-10.4); GFR AFRICAN-AMERICAN 31; GFR NON-AFRICAN AMERICAN 25
[2017-10-17 01:28] VITALS: RESP 20
[2017-10-17 06:59] LABS: SQUAMOUS EPITHIAL 2 /hpf (0-5); URINE BILIRUBIN NEGATIVE (NEGATIVE); URINE BLOOD NEGATIVE (NEGATIVE); URINE CLARITY Clear (Clear); URINE COLOR Yellow (YELLOW); URINE GLUCOSE (UA) NORMAL (Normal); URINE LEUKOCYTE ESTERASE 1+ Leu/uL (Negative); URINE PROTEIN NEGATIVE (NEGATIVE); URINE UROBILINOGEN NORMAL mg/dL (0.2-1.0)
[2017-10-17 07:23] LABS: EOS # 0.2 K/uL (0.0-0.7); HEMOGLOBIN 10.4 g/dL (11.0-16.0)
[2017-10-17] MEDS: (Novolog) Insulin Aspart, Recombinant 100 u/ml 10 ml vial SC SCH ×4 (07:26→21:27)
[2017-10-17 07:29] LABS: BASO % 0.5 % (0.0-2.0); EOS % 2.4 % (0.0-4.0); LYMPH # 2.3 K/uL (1.0-4.3); LYMPH % 30.1 % (20.0-40.0); MEAN CELL VOLUME 93.5 fL (81.0-99.0); MEAN CORPUSCULAR HEMOGLOBIN 32.4 pg (27.0-31.0); MEAN CORPUSCULAR HGB CONC 34.7 g/dL (33.0-37.0); MEAN PLATELET VOLUME 9.7 fL (7.2-11.7); MONO # 0.5 K/uL (0.0-0.8); MONO % 6.7 % (0.0-10.0); NEUT # 4.6 K/uL (1.8-7.0); NEUT % 60.3 % (50.0-75.0); RBC 3.21 Mil/uL (3.80-5.20); RED CELL DISTRIBUTION WIDTH 13.7 % (11.5-14.5); WHITE BLOOD COUNT 7.7 K/uL (4.8-10.8)
[2017-10-17 07:53] LABS: ALB/GLOB RATIO 1.2 (1.0-2.1); ALBUMIN 3.4 g/dL (3.5-5.0)
--- NOTE | 2017-10-17 08:14 | HP ---
CHIEF COMPLAINT: Burning epigastric pain, not relieved with H2 blockers and PPI since four days. HISTORY OF PRESENT ILLNESS: Ms. Cat is an 82-year-old female with past medical history of hypertension, diabetes mellitus, hyperlipidemia, coronary artery disease, congestive heart failure, cardiomyopathy, right carotid stenosis, who has been following up with Dr. Topete as primary care physician and Dr. Lind as campground hand, came into the ED, brought by patient's daughter as the patient has been complaining of persistent epigastric pain associated with nausea, not relieved by any of the H2 blockers or PPIs. All the history obtained from the patient's daughter who is at bedside as the patient speaks only [place]. As per the patient's daughter, about five days ago, the patient developed nausea, vomiting, headache, and dizziness. All the symptoms lasted for a day and she felt better. After her symptoms improved, she started noticing epigastric pain which is burning in nature, non-radiating; not relieved by ranitidine, omeprazole over the past four days. At this morning around 5 a.m., she woke up with epigastric pain at which time daughter gave her omeprazole and ranitidine without any significant relief. The patient was taken to her PMD, Dr. Topete, where the patient was evaluated. While she was bathing, she felt very dizzy, diaphoretic and became pale; at which time, the patient was transferred to the hospital for further evaluation. When I examined the patient, the patient felt much better but still complaining of epigastric pain. No episodes of vomiting. Denied any headache or dizziness. Denied any chest pain. Denied any urinary complaints, diarrhea, or constipation. Denied any neurological symptoms. All other systems reviewed and were found to be negative. PAST MEDICAL HISTORY: CAD, CHF, cardiomyopathy, diabetes mellitus, hypertension, hyperlipidemia, carotid stenosis. 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 She uses cane or walker at home to ambulate. FAMILY HISTORY: Hypertension in mother and father had CVA. PERSONAL HISTORY: She is a . Lives with daughter, having three children, retired. SOCIAL HISTORY: Denies smoking, alcohol, or other drug abuse. ALLERGIES: NO KNOWN DRUG ALLERGIES. MEDICATIONS: At home include metformin 500 mg twice a day, Coreg 25 mg twice a day, Tradjenta 5 mg daily, ranitidine 150 mg twice a day, Lasix 20 mg twice a day, spironolactone 25 mg daily, losartan 100 mg daily, B6, calcium, Crestor 20 mg daily, Plavix 75 mg daily, B12, glipizide 2.5 mg b.i.d., Repatha 140 mg subcu daily, Carafate 1 gm p.o. at bedtime, Letrozole 2.5 mg daily. REVIEW OF SYSTEMS: As described in history of present illness, all other systems reviewed, and were found to be negative. PHYSICAL EXAMINATION: GENERAL: Elderly female, lying in bed, in no acute distress. VITAL SIGNS: Blood pressure 160/61, pulse 57, respirations 18, temperature 97.9 degrees Fahrenheit, O2 saturation 100% on room air. HEENT: Pupils equal, round, and reacting to light and accommodation. Extraocular muscles intact. No icterus. No pallor. No oral thrush. No pharyngeal congestion. NECK: Supple. No JVD. LUNGS: Bilateral vesicular breath sounds. No wheezing, no rhonchi. CVS: S1, S2 present, regular. ABDOMEN: Soft. Mild epigastric tenderness noted. Bowel sounds present. No guarding. No rigidity. No rebound tenderness noted. [employer]: Alert, awake, and oriented x3. No focal deficits noted. EXTREMITIES: No edema. Palpable peripheral pulses. LABORATORY DATA: Her labs from ED shows WBC 6.7, hemoglobin 10.9, hematocrit 31.9, platelets 178, sodium 137, potassium 5.6, chloride 99, bicarb 26, BUN 45, creatinine 2.2, glucose 243, calcium 8.7, total bilirubin 0.2, AST 24, ALT 18, alkaline phosphatase 55. Cardiac enzymes x1 negative. Total protein 6.7, albumin 3.8, lipase 89. Her baseline creatinine is 1.2. In 09/2016, EKG consistent with normal sinus rhythm with T-inversion in I, AVL, V4, V5 and V6 and V2. The patient had echocardiogram done in 09/2016 which is consistent with left ventricular systolic function is severely impaired. Ejection fraction is 20% to 25%. Hypertensive heart disease, diastolic dysfunction, mild aortic regurgitation, mitral regurgitation is mild, and mild pulmonic valvular regurgitation; and in 2016, the patient was admitted for acute CHF, respiratory failure, and pneumonia. ASSESSMENT: Elderly female with past medical history of coronary artery disease, congestive heart failure, cardiomyopathy with ejection fraction of 20% to 25%, previous history of acute respiratory failure, pulmonary edema, diabetes mellitus, hypertension, history of cerebrovascular accident in 2004, history of left mastectomy in 2016 as per the patient for stage II cancer who uses a cane or walker to ambulate, has been following up with Dr. Topete as primary care physician and Dr. Lind as campground hand, came into the Emergency Department, brought by the patient's daughter for four-day history of epigastric burning pain associated with nausea, not relieved by any of the H2 blockers or proton pump inhibitors. In the emergency department, the patient was evaluated, and the patient is found to be having elevated potassium, elevated BUN and creatinine from her baseline, and the patient is being admitted to rule out acute coronary syndrome in view of her risk factors. 1. Persistent epigastric pain in a patient with multiple risk factors. Her symptoms are most likely consistent with acute gastritis but cannot rule out acute coronary syndrome in view of her multiple risk factors. 2. Hyperkalemia secondary to medication. 3. Elevated BUN and creatinine from her baseline, rule out acute kidney injury versus chronic kidney disease. 4. History of congestive heart failure, now stable. 5. Hypertension. 6. Diabetes mellitus. 7. Hyperlipidemia. PLAN: The patient is being admitted to cardiac telemetry. We will do serial cardiac enzymes, serial EKGs. We will check echocardiogram. Continue with her home medications. We will hold Lasix, spironolactone, losartan, and metformin. Continue with Coreg. Monitor her renal function. We will hold on to hydration in view of her low EF. Repeat labs in the morning. We will continue with her diabetic medication. Do Accu-Chek q.a.c. and at bedtime. We will obtain cardiology evaluation with Dr. Lind. We will give Kayexalate one dose, repeat BMP. We will add further recommendations as her clinical course progresses. Pamela Escalante MD
--- NOTE | 2017-10-17 08:36 | CP.PCM.PN ---
Subjective - Date & Time of Evaluation Date of Evaluation: 10/17/17 Time of Evaluation: 08:35 - Subjective Subjective: Progress note dictated #[id number] Objective - Vital Signs/Intake and Output Vital Signs (last 24 hours): Temp Pulse Resp BP Pulse Ox 98.4 F 54 L 20 145/71 96 10/16/17 23:20 10/17/17 07:00 10/16/17 23:20 10/16/17 23:20 10/16/17 23:20 - Medications Medications: Current Medications Al Hydrox/Mg Hydrox/Simethicone (Maalox Plus 30 Ml) 30 ml PO Q6 [facility] Last Admin: 10/16/17 18:50 Dose: 30 ml Carvedilol (Coreg) 25 mg PO BID [facility] Docusate Sodium (Colace) 100 mg PO DAILY [facility] Folic Acid (Folic Acid) 1 mg PO DAILY [facility] Glipizide (Glucotrol) 2.5 mg PO BID [facility] Home Med (Patient's Own Medication) 5 tab PO DAILY [facility] Insulin Aspart (Novolog) 0 unit SC ACHS [facility] PRN Reason: Protocol Last Admin: 10/17/17 07:26 Dose: Not Given Pantoprazole Sodium (Protonix Inj) 40 mg IVP Q12H [facility] Last Admin: 10/16/17 18:50 Dose: 40 mg Rosuvastatin Calcium (Crestor) 5 mg PO HS [facility] Last Admin: 10/16/17 21:21 Dose: 5 mg Sucralfate (Carafate Tab) 1 gm PO HS [facility] Last Admin: 10/16/17 22:42 Dose: 1 gm - Labs Labs: 10/17/17 07:16
[2017-10-17 09:35] LABS: ALT/SGPT 18 U/L (9-52); AST/SGOT 30 U/L (14-36); BLOOD UREA NITROGEN 38 mg/dL (7-17); CALCIUM 8.6 mg/dl (8.6-10.4); GFR AFRICAN-AMERICAN 33; GFR NON-AFRICAN AMERICAN 27; HDL CHOLESTEROL 31 mg/dL (30-70)
[2017-10-17 09:55] LABS: LDL CHOLESTEROL < 30 mg/dL (0-129)
--- NOTE | 2017-10-17 10:18 | CP.PCM.CON ---
History of Present Illness - History of Present Illness History of Present Illness: 81 y/o > abdominal pain x 1 day. Patient has pain in the epigastric area that she feels is similar to her typical abdominal pain that gets better with H2 sincere or omeprazole but after taking it today, the pain was not improved. Denies fever , chills, chest pain, dyspnea, vomiting, diarrhea, dysuria. > currently no volume overload, anginal type CP, arrythmia, N/V, fevers or chills > A&O x3 with generalized weakness > Abd pain is resolved PMHX; CVA- L. sided weakness, HTN, DM, poor functional capacity (minimally active) ---> Out patient echo had been reported as 35-40% 06/03/16 and CHF therapy was being optimized at the time. ---> Stress test 01/2016: Showed normal perfusion with reduction in LVEF 43% : susicious for NICM PSHX: mastectomy, No CABG PSH: L mastectomy (2013) FamHx: unremarkable SocHx: denies tob currently, former smoker (quit 30 yrs ago)/denies EtOH/ilicit drug use Review of Systems - Review of Systems All systems: reviewed and no additional remarkable complaints except Past Patient History - Past Medical History & Family History Past Medical History?: Yes - Past Social History Smoking Status: Never Smoked - CARDIAC Hx Congestive Heart Failure: Yes Hx Hypercholesterolemia: Yes Hx Hypertension: Yes - PULMONARY Hx Chronic Obstructive Pulmonary Disease (COPD): Yes - NEUROLOGICAL HX Cerebrovascular Accident: Yes (2003) - HEENT Hx HEENT Problems: Yes Other/Comment: wears glasses for reading - ENDOCRINE/METABOLIC Hx Endocrine Disorders: Yes Hx Diabetes Mellitus Type 2: Yes - HEMATOLOGICAL/ONCOLOGICAL Hx Blood Disorders: No - INTEGUMENTARY Hx Dermatological Problems: No - MUSCULOSKELETAL/RHEUMATOLOGICAL Hx Musculoskeletal Disorders: Yes Hx Falls: Yes - GASTROINTESTINAL Hx Gastrointestinal Disorders: No - GENITOURINARY/GYNECOLOGICAL Hx Genitourinary Disorders: Yes Hx Incontinence: Yes - PSYCHIATRIC Hx Substance Use: No - SURGICAL HISTORY Hx Surgeries: Yes Hx Mastectomy: Yes (2015) Other/Comment: L breast mastectomy - ANESTHESIA Hx Anesthesia: Yes Hx Anesthesia Reactions: No Hx Malignant Hyperthermia: No Meds Allergies/Adverse Reactions: Allergies Allergy/AdvReac Type Severity Reaction Status Date / Time No Known Allergies Allergy Verified 03/27/16 10:04 - Medications Medications: Current Medications Al Hydrox/Mg Hydrox/Simethicone (Maalox Plus 30 Ml) 30 ml PO Q6 [facility] Last Admin: 10/16/17 18:50 Dose: 30 ml Carvedilol (Coreg) 25 mg PO BID [facility] Docusate Sodium (Colace) 100 mg PO DAILY [facility] Folic Acid (Folic Acid) 1 mg PO DAILY [facility] Glipizide (Glucotrol) 2.5 mg PO BID [facility] Home Med (Patient's Own Medication) 5 tab PO DAILY [facility] Insulin Aspart (Novolog) 0 unit SC ACHS [facility] PRN Reason: Protocol Last Admin: 10/17/17 07:26 Dose: Not Given Pantoprazole Sodium (Protonix Inj) 40 mg IVP Q12H [facility] Last Admin: 10/16/17 18:50 Dose: 40 mg Rosuvastatin Calcium (Crestor) 5 mg PO HS [facility] Last Admin: 10/16/17 21:21 Dose: 5 mg Sucralfate (Carafate Tab) 1 gm PO [facility] Last Admin: 10/16/17 22:42 Dose: 1 gm Physical Exam - Constitutional Appears: Non-toxic, No Acute Distress - Head Exam Head Exam: ATRAUMATIC, NORMAL INSPECTION, NORMOCEPHALIC - Eye Exam Eye Exam: EOMI, Normal appearance, PERRL - ENT Exam ENT Exam: Mucous Membranes Moist, Normal Oropharynx - Neck Exam Neck exam: Positive for: Full Rom. Negative for: Tenderness - Respiratory Exam Respiratory Exam: Clear to Auscultation Bilateral. absent: Rhonchi, Wheezes - Cardiovascular Exam Cardiovascular Exam: REGULAR RHYTHM, +S1, +S2. absent: JVD, +S4 - GI/Abdominal Exam GI & Abdominal Exam: Normal Bowel Sounds, Soft. absent: Tenderness - Extremities Exam Extremities exam: Positive for: normal inspection. Negative for: calf tenderness, pedal edema - Neurological Exam Neurological exam: Alert, Oriented x3 - Skin Skin Exam: Normal Color, Warm Results - Vital Signs Recent Vital Signs: Last Vital Signs Temp 97.9 F 10/17/17 07:00 Pulse 54 L 10/17/17 07:00 Resp 20 10/17/17 07:00 BP 163/60 H 10/17/17 07:00 Pulse Ox 96 10/17/17 07:00 - Labs Result Diagrams: 10/17/17 07:16 10/17/17 07:16 Labs: Laboratory Results - last 24 hr 10/16/17 10/16/17 10/16/17 14:04 14:04 21:06 WBC 6.7 RBC 3.38 L Hgb 10.9 L Hct 31.9 L MCV 94.4 MCH 32.1 H MCHC 34.0 RDW 13.9 Plt Count 178 MPV 9.0 Neut % (Auto) 70.2 Lymph % (Auto) 21.9 [place] % (Auto) 5.7 Eos % (Auto) 1.9 Baso % (Auto) 0.3 Neut # (Auto) 4.7 Lymph # (Auto) 1.5 [place] # (Auto) 0.4 Eos # (Auto) 0.1 Baso # (Auto) 0.0 Sodium 137 Potassium 5.6 H Chloride 99 Carbon Dioxide 26 Anion Gap 18 BUN 45 H Creatinine 2.2 H Est GFR ( Amer) 26 Est GFR (Non-Af Amer) 21 POC Glucose (mg/dL) 147 H Random Glucose 243 H Calcium 8.7 Total Bilirubin 0.2 AST 24 ALT 18 Alkaline Phosphatase 55 Total Creatine Kinase 90 CK-MB (Mass) 0.38 Troponin I < 0.0120 Total Protein 6.7 Albumin 3.8 Globulin 2.9 Albumin/Globulin Ratio 1.3 Triglycerides Cholesterol LDL Cholesterol Direct HDL Cholesterol Lipase 89 TSH 3rd Generation Urine Color Urine Clarity Urine pH Ur Specific [place] Urine Protein Urine Glucose (UA) Urine Ketones Urine Blood Urine Nitrate Urine Bilirubin Urine Urobilinogen Ur Leukocyte Esterase Urine WBC (Auto) Urine RBC (Auto) Ur Squamous Epith Cells 10/16/17 10/17/17 10/17/17 22:14 06:27 06:51 WBC RBC Hgb Hct MCV MCH MCHC RDW Plt Count MPV Neut % (Auto) Lymph % (Auto) [place] % (Auto) Eos % (Auto) Baso % (Auto) Neut # (Auto) Lymph # (Auto) [place] # (Auto) Eos # (Auto) Baso # (Auto) Sodium 137 Potassium 4.9 Chloride 101 Carbon Dioxide 26 Anion Gap 15 BUN 43 H Creatinine 1.9 H Est GFR ( Amer) 31 Est GFR (Non-Af Amer) 25 POC Glucose (mg/dL) 128 H Random Glucose 138 H Calcium 8.8 Total Bilirubin AST ALT Alkaline Phosphatase Total Creatine Kinase CK-MB (Mass) Troponin I < 0.0120 Total Protein Albumin Globulin Albumin/Globulin Ratio Triglycerides Cholesterol LDL Cholesterol Direct HDL Cholesterol Lipase TSH 3rd Generation Urine Color Yellow Urine Clarity Clear Urine pH 5.0 Ur Specific [place] 1.014 Urine Protein Negative Urine Glucose (UA) Normal Urine Ketones Negative Urine Blood Negative Urine Nitrate Negative Urine Bilirubin Negative Urine Urobilinogen Normal Ur Leukocyte Esterase 1+ H Urine WBC (Auto) 1 Urine RBC (Auto) 1 Ur Squamous Epith Cells 2 10/17/17 10/17/17 07:16 07:16 WBC 7.7 RBC 3.21 L Hgb 10.4 L Hct 30.0 L MCV 93.5 MCH 32.4 H MCHC 34.7 RDW 13.7 Plt Count 143 MPV 9.7 Neut % (Auto) 60.3 Lymph % (Auto) 30.1 [place] % (Auto) 6.7 Eos % (Auto) 2.4 Baso % (Auto) 0.5 Neut # (Auto) 4.6 Lymph # (Auto) 2.3 [place] # (Auto) 0.5 Eos # (Auto) 0.2 Baso # (Auto) 0.0 Sodium 137 Potassium 4.7 Chloride 101 Carbon Dioxide 24 Anion Gap 16 BUN 38 H Creatinine 1.8 H Est GFR ( Amer) 33 Est GFR (Non-Af Amer) 27 POC Glucose (mg/dL) Random Glucose 121 H Calcium 8.6 Total Bilirubin < 0.1 L AST 30 ALT 18 Alkaline Phosphatase 55 Total Creatine Kinase CK-MB (Mass) Troponin I < 0.0120 Total Protein 6.4 Albumin 3.4 L Globulin 3.0 Albumin/Globulin Ratio 1.2 Triglycerides 98 Cholesterol 62 LDL Cholesterol Direct < 30 HDL Cholesterol 31 Lipase TSH 3rd Generation 1.56 Urine Color Urine Clarity Urine pH Ur Specific [place] Urine Protein Urine Glucose (UA) Urine Ketones Urine Blood Urine Nitrate Urine Bilirubin Urine Urobilinogen Ur Leukocyte Esterase Urine WBC (Auto) Urine RBC (Auto) Ur Squamous Epith Cells - EKG Data EKG Interpreted by: Myself (NSR, 1st deg AVB, LVH lateral strain) Assessment & Plan - Assessment and Plan (Free Text) Assessment: Presenting complaint: abdominal pain Chronic systolic dysfunction HTN uncontrolled Lipids Prior CVA CKD IV Anemia hx of breast CA Left mastectomy 82 y/o with history of probable NICM as evidenced by normal perfusion and reduced EF on stress test 01/2016. > ME ruled out > No volume overload to suggest CHF decompensation > ABD pain lacks features to suggest cardiac component : consider GI eval Suggest add hydralazine 25 BID cont corg and statin Add ASA 81 daily f/u echo to re-eval cardiac structure and function + B/L carotid bruits ---> suggest carotid U/S
[2017-10-17] MEDS: Patient's Own Medication - Tablet/Capusle PO SCH (10:32)
[2017-10-17] MEDS: GlipiZIDE 2.5 mg Tab PO SCH ×2 (10:50→17:24)
[2017-10-17] MEDS: Alum-Mag Hydrox-Simethicone Susp (30 mL) PO SCH ×2 (17:23→23:03)
--- NOTE | 2017-10-17 18:51 | PN ---
DATE: 10/17/2017 SUBJECTIVE: The patient was seen and examined at bedside. The patient is feeling much better. Denies any epigastric pain. Denies any headache or dizziness. Denies any chest pain, shortness of breath, or wheezing. Denies any nausea or vomiting. Denies any urinary complaints. Denies any leg pains or leg cramps. REVIEW OF SYSTEMS: All other systems reviewed and were found to be negative. PHYSICAL EXAMINATION: GENERAL: Elderly female, lying in bed in no acute distress. VITAL SIGNS: Blood pressure 160/64, pulse 54, respirations 20, temperature 97.9 degrees Fahrenheit, O2 saturation 96% on room air. HEENT: Pupils are equal, round, and reactive to light and accommodation. Extraocular muscles are intact. No icterus. No pallor. No oral thrush. No oropharyngeal congestion. NECK: Supple. No JVD. LUNGS: Bilateral vesicular breath sounds. No wheezing. No rhonchi. CVS: S1 and S2 present. Regular. ABDOMEN: Soft and nontender. Bowel sounds are present. No guarding. No rigidity. No rebound tenderness noted. 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 No focal deficits noted. EXTREMITIES: No edema. Palpable peripheral pulses. MEDICATIONS: Include Maalox as needed, Coreg 25 mg p.o. b.i.d., Colace 100 mg daily, folic acid 1 mg daily, glipizide 2.5 mg p.o. b.i.d., Tradjenta 5 mg daily, Protonix 40 mg IV push every 12 hours, Crestor 5 mg p.o. at bedtime, Carafate 1 gm p.o. at bedtime. LABORATORY DATA: From this morning: WBC 7.7, hemoglobin 10.4, hematocrit 30, platelets 143. Sodium 137, potassium 4.7, chloride 101, bicarbonate 24, BUN 38, creatinine 1.8. Urine negative except leukocyte esterase 1+. Cardiac enzymes x3 negative. TSH 1.56, cholesterol 62, triglycerides 98, LDL less than 30, HDL 31. ASSESSMENT AND PLAN: An elderly female with history of hypertension, hyperlipidemia, diabetes mellitus, coronary artery disease, congestive heart failure, cardiomyopathy, history of cerebrovascular accident with left-sided weakness, gastritis, admitted for epigastric pain, acute kidney injury versus chronic kidney disease, improving renal function and hyperkalemia, corrected; epigastric pain improved; myocardial infarction ruled out. Negative cardiac enzymes. Echocardiogram is pending. The patient has history of carotid artery stenosis. I will continue with current medication. Spironolactone and losartan were held secondary to hyperkalemia and worsening renal function. Follow up with Cardiology. We will add further recommendation as her clinical course progresses. Pamela Escalante MD
[2017-10-18] MEDS: Alum-Mag Hydrox-Simethicone Susp (30 mL) PO SCH ×3 (05:01→17:30)
[2017-10-18 08:12] LABS: BASO % 0.3 % (0.0-2.0); EOS # 0.2 K/uL (0.0-0.7); LYMPH # 1.9 K/uL (1.0-4.3); LYMPH % 29.2 % (20.0-40.0); MEAN CELL VOLUME 92.7 fL (81.0-99.0); MEAN CORPUSCULAR HEMOGLOBIN 32.6 pg (27.0-31.0); MEAN CORPUSCULAR HGB CONC 35.2 g/dL (33.0-37.0); MEAN PLATELET VOLUME 8.8 fL (7.2-11.7); MONO # 0.5 K/uL (0.0-0.8); NEUT # 3.9 K/uL (1.8-7.0); NEUT % 60.5 % (50.0-75.0); RBC 3.36 Mil/uL (3.80-5.20); RED CELL DISTRIBUTION WIDTH 13.7 % (11.5-14.5); WHITE BLOOD COUNT 6.5 K/uL (4.8-10.8)
[2017-10-18] MEDS: (Novolog) Insulin Aspart, Recombinant 100 u/ml 10 ml vial SC SCH ×4 (08:12→22:41)
[2017-10-18 08:34] LABS: CALCIUM 8.9 mg/dl (8.6-10.4)
[2017-10-18] MEDS: Patient's Own Medication - Tablet/Capusle PO SCH (10:06)
[2017-10-18] MEDS: GlipiZIDE 2.5 mg Tab PO SCH ×2 (10:08→18:24)
--- NOTE | 2017-10-18 12:46 | CP.PCM.PN ---
Subjective - Date & Time of Evaluation Date of Evaluation: 10/18/17 Time of Evaluation: 12:50 - Subjective Subjective: Progress note dictated #[id number] Objective - Vital Signs/Intake and Output Vital Signs (last 24 hours): Temp Pulse Resp BP Pulse Ox 98.6 F 61 20 170/77 H 97 10/18/17 08:46 10/18/17 08:46 10/18/17 08:46 10/18/17 10:07 10/18/17 08:46 Intake and Output: 10/18/17 10/18/17 06:59 18:59 Intake Total 500 Output Total 400 Balance 100 - Medications Medications: Current Medications Al Hydrox/Mg Hydrox/Simethicone (Maalox Plus 30 Ml) 30 ml PO Q6 [facility] Last Admin: 10/18/17 05:01 Dose: Not Given Carvedilol (Coreg) 25 mg PO BID [facility] Last Admin: 10/18/17 10:07 Dose: 25 mg Docusate Sodium (Colace) 100 mg PO DAILY [facility] Last Admin: 10/18/17 10:07 Dose: 100 mg Folic Acid (Folic Acid) 1 mg PO DAILY [facility] Last Admin: 10/18/17 10:07 Dose: 1 mg Glipizide (Glucotrol) 2.5 mg PO BID [facility] Last Admin: 10/18/17 10:08 Dose: 2.5 mg Home Med (Patient's Own Medication) 5 tab PO DAILY [facility] Last Admin: 10/18/17 10:06 Dose: 5 tab Insulin Aspart (Novolog) 0 unit SC ACHS [facility] PRN Reason: Protocol Last Admin: 10/18/17 08:12 Dose: Not Given Pantoprazole Sodium (Protonix Inj) 40 mg IVP Q12H [facility] Last Admin: 10/18/17 05:57 Dose: 40 mg Rosuvastatin Calcium (Crestor) 5 mg PO HS [facility] Last Admin: 10/17/17 21:29 Dose: 5 mg Sucralfate (Carafate Tab) 1 gm PO HS [facility] Last Admin: 10/17/17 21:29 Dose: 1 gm - Labs Labs: 10/18/17 08:04 10/18/17 08:04
--- NOTE | 2017-10-18 13:43 | CP.PCM.PN ---
Subjective - Date & Time of Evaluation Date of Evaluation: 10/18/17 Time of Evaluation: 13:39 - Subjective Subjective: No cardiac complaints No CP NO SOB -> No edema, no JVD No fevers, chills, N/V Abd pain non-apparent today, no tenderness over abdomen Objective - Vital Signs/Intake and Output Vital Signs (last 24 hours): Temp Pulse Resp BP Pulse Ox 98.6 F 61 20 170/77 H 97 10/18/17 08:46 10/18/17 08:46 10/18/17 08:46 10/18/17 10:07 10/18/17 08:46 Intake and Output: 10/18/17 10/18/17 06:59 18:59 Intake Total 500 Output Total 400 Balance 100 - Medications Medications: Current Medications Al Hydrox/Mg Hydrox/Simethicone (Maalox Plus 30 Ml) 30 ml PO Q6 [facility] Last Admin: 10/18/17 05:01 Dose: Not Given Carvedilol (Coreg) 25 mg PO BID [facility] Last Admin: 10/18/17 10:07 Dose: 25 mg Docusate Sodium (Colace) 100 mg PO DAILY [facility] Last Admin: 10/18/17 10:07 Dose: 100 mg Folic Acid (Folic Acid) 1 mg PO DAILY [facility] Last Admin: 10/18/17 10:07 Dose: 1 mg Glipizide (Glucotrol) 2.5 mg PO BID [facility] Last Admin: 10/18/17 10:08 Dose: 2.5 mg Home Med (Patient's Own Medication) 5 tab PO DAILY [facility] Last Admin: 10/18/17 10:06 Dose: 5 tab Hydralazine HCl (Apresoline) 25 mg PO BID [facility] Insulin Aspart (Novolog) 0 unit SC [facility] PRN Reason: Protocol Last Admin: 10/18/17 12:00 Dose: 2 unit Pantoprazole Sodium (Protonix Inj) 40 mg IVP Q12H [facility] Last Admin: 10/18/17 05:57 Dose: 40 mg Rosuvastatin Calcium (Crestor) 5 mg PO [facility] Last Admin: 10/17/17 21:29 Dose: 5 mg Sucralfate (Carafate Tab) 1 gm PO [facility] Last Admin: 10/17/17 21:29 Dose: 1 gm - Labs Labs: 10/18/17 08:04 10/18/17 08:04 - Constitutional Appears: No Acute Distress - Head Exam Head Exam: ATRAUMATIC, NORMAL INSPECTION, NORMOCEPHALIC - Eye Exam Eye Exam: EOMI, Normal appearance, PERRL - ENT Exam ENT Exam: Mucous Membranes Moist, Normal Oropharynx - Respiratory Exam Respiratory Exam: Clear to Ausculation Bilateral, NORMAL BREATHING PATTERN. absent: Rhonchi, Wheezes - Cardiovascular Exam Cardiovascular Exam: REGULAR RHYTHM, +S1, +S2. absent: Murmur Additional comments: b/l carotid bruits - GI/Abdominal Exam GI & Abdominal Exam: Soft. absent: Tenderness, Organomegaly, Pulsatile Mass - Extremities Exam Extremities Exam: Normal Inspection. absent: Pedal Edema - Neurological Exam Neurological Exam: Alert, Awake, Oriented x3 - Skin Skin Exam: Normal Color, Warm Assessment and Plan - Assessment and Plan (Free Text) Assessment: Presenting complaint: abdominal pain Chronic systolic dysfunction HTN uncontrolled Lipids Prior CVA CKD IV Anemia hx of breast CA Left mastectomy 82 y/o with history of probable NICM as evidenced by normal perfusion and reduced EF on stress test 01/2016. > IL ruled out > No volume overload to suggest CHF decompensation > ABD pain lacks features to suggest cardiac component : consider GI eval --> ECHO: repeated 10/17/17 --> as read by me: mild-mod LV dysfunction EF ~40% with LVH, normal PASP, mild MR,TR and grade 1 diastolic dysfunction Based on the above findings suggest optimize medical therapy for NICM (mild-mod) CKD IV may be in issue with DIPESH-I or aldactone but can consider if K+ remains appropriate on monitoring. i.e aldactone 12.5 and losartan 25 Also suggest maintainence lasix 20mg daily Hydralazine can be eliminated if needed to accomadate above. Meds reviewed: Carvedilol (Coreg) 25 mg PO BID [facility] Hydralazine HCl (Apresoline) 25 mg PO BID [facility] Rosuvastatin Calcium (Crestor) 5 mg PO HS [facility] B/L Carotid Bruits --> Carotid U/S as read by me: --> >70% stenosis of the VALERY with retrgrade R. vertebral flow, LICA appears <50% : correlate with final read --> Suggest ASA 81 and continue statin therapy: outpatient vascular evaluation can be considered. D/C planning if non-cardiac issues are stable f/u with Dr. mishra as outpatient.
--- NOTE | 2017-10-18 16:27 | PN ---
DATE: 10/18/2017 SUBJECTIVE: The patient is seen and examined at bedside. The patient is feeling much better. Denies any nausea, vomiting, or epigastric burning pain. Her symptoms are better. Denies any chest pain, shortness of breath, or wheezing. REVIEW OF SYSTEMS: All other systems reviewed and were found to be negative. PHYSICAL EXAMINATION: GENERAL: Elderly female, lying in bed, in no acute distress. VITAL SIGNS: Blood pressure 178/77, pulse 61, respirations 20, temperature 98.6 degrees Fahrenheit, O2 sat is 97% on room air. HEENT: Pupils are equal, round, and reactive to light and accommodation. Extraocular muscles intact. No icterus. No pallor. No oral thrush. No oropharyngeal congestion. NECK: Supple. No JVD. LUNGS: Bilateral vesicular breath sounds. No wheezing. No rhonchi. CVS: S1 and S2 present, regular. ABDOMEN: Soft and nontender. Bowel sounds are present. No guarding. No rigidity. No rebound tenderness noted. 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 No focal deficits noted. EXTREMITIES: No edema. Palpable peripheral pulses. MEDICATIONS: Include Coreg 25 mg p.o. b.i.d., Colace 100 mg daily, folic acid 1 mg daily, glipizide 2.5 mg p.o. b.i.d., Tradjenta 5 mg tablet daily, hydralazine 25 mg p.o. b.i.d., Protonix 40 mg IV push every 12 hours, Crestor 5 mg p.o. at bedtime, and Carafate 1 g p.o. at bedtime. LABORATORY DATA: Labs done from this morning: WBC 6.5, hemoglobin 11, hematocrit 31.2, platelets 179. Sodium 140, potassium 5.1, chloride 102, bicarb 39, BUN 38, creatinine 1.8, glucose 153, hemoglobin A1c 8.1, phosphorus 3.7, magnesium 2.7. UA negative. Echo results pending. Carotid Doppler preliminary report consistent with right carotid stenosis with . ASSESSMENT AND PLAN: Elderly female with history of diabetes mellitus, hypertension, hyperlipidemia, coronary artery disease, congestive heart failure, cardiomyopathy, right carotid stenosis, admitted for epigastric burning pain. Myocardial infarction ruled out by cardiac enzymes and changes. Echo results pending. Her BUN and creatinine remained stable at 1.8. We will hold the losartan and Aldactone at the present time as blood pressure is running high. We will start hydralazine 25 mg p.o. b.i.d. as recommended by Cardiology. We will request vascular surgery consult with Dr. England for her right carotid artery stenosis. The patient is unable to recall who she has been following up from gastroenterology standpoint. We will continue with present therapy. Follow up with echo report. Follow up with Vascular Surgery. If cleared by all the consultants, we will plan discharging the patient home in a.m. Pamela Escalante MD
[2017-10-19] MEDS: Alum-Mag Hydrox-Simethicone Susp (30 mL) PO SCH ×3 (00:07→12:02)
--- NOTE | 2017-10-19 01:41 | CP.PCM.CON ---
History of Present Illness - History of Present Illness History of Present Illness: Vascular surgery 82 F w PMH of CVA w residual L sided weakness, CHF EF 40%, COPD , CKD, former smoker came with epigastric pain. EKG showed ST depression and pt is admitted to be evaluated by parking officer. Pt found to have carotid bruits on examination , US of the neck is done. Shows 420m/s peak systolic velocity indicating severe 80-99% R ICA stenosis. Vascular sx is consulted to evaluate for R Carotid stenosis. Pt denies vision changes, syncopal episodes, dizziness, worsened motor weakness, sensory deficit, numbness, tingling, slurred speech, facial drooping, falling. Pt has CKD and Cr is 2.2 PMH : see above PSH: L mastectomy for breast CA SS: former smoker Review of Systems - Review of Systems Review of Systems: See HPI Past Patient History - Past Medical History & Family History Past Medical History?: Yes - Past Social History Smoking Status: Never Smoked - CARDIAC Hx Congestive Heart Failure: Yes Hx Hypercholesterolemia: Yes Hx Hypertension: Yes - PULMONARY Hx Chronic Obstructive Pulmonary Disease (COPD): Yes - NEUROLOGICAL HX Cerebrovascular Accident: Yes (2003) - HEENT Hx HEENT Problems: Yes Other/Comment: wears glasses for reading - ENDOCRINE/METABOLIC Hx Endocrine Disorders: Yes Hx Diabetes Mellitus Type 2: Yes - HEMATOLOGICAL/ONCOLOGICAL Hx Blood Disorders: No - INTEGUMENTARY Hx Dermatological Problems: No - MUSCULOSKELETAL/RHEUMATOLOGICAL Hx Musculoskeletal Disorders: Yes Hx Falls: Yes - GASTROINTESTINAL Hx Gastrointestinal Disorders: No - GENITOURINARY/GYNECOLOGICAL Hx Genitourinary Disorders: Yes Hx Incontinence: Yes - PSYCHIATRIC Hx Substance Use: No - SURGICAL HISTORY Hx Surgeries: Yes Hx Mastectomy: Yes (2015) Other/Comment: L breast mastectomy - ANESTHESIA Hx Anesthesia: Yes Hx Anesthesia Reactions: No Hx Malignant Hyperthermia: No Meds Allergies/Adverse Reactions: Allergies Allergy/AdvReac Type Severity Reaction Status Date / Time No Known Allergies Allergy Verified 03/27/16 10:04 - Medications Medications: Current Medications Al Hydrox/Mg Hydrox/Simethicone (Maalox Plus 30 Ml) 30 ml PO Q6 [facility] Last Admin: 10/19/17 00:07 Dose: 30 ml Aspirin (Ecotrin) 81 mg PO DAILY [facility] Carvedilol (Coreg) 25 mg PO BID [facility] Last Admin: 10/18/17 18:24 Dose: 25 mg Clopidogrel Bisulfate (Plavix) 75 mg PO DAILY [facility] Docusate Sodium (Colace) 100 mg PO DAILY [facility] Last Admin: 10/18/17 10:07 Dose: 100 mg Folic Acid (Folic Acid) 1 mg PO DAILY [facility] Last Admin: 10/18/17 10:07 Dose: 1 mg Glipizide (Glucotrol) 2.5 mg PO BID [facility] Last Admin: 10/18/17 18:24 Dose: 2.5 mg Home Med (Patient's Own Medication) 5 tab PO DAILY [facility] Last Admin: 10/18/17 10:06 Dose: 5 tab Hydralazine HCl (Apresoline) 25 mg PO BID [facility] Last Admin: 10/18/17 17:31 Dose: 25 mg Insulin Aspart (Novolog) 0 unit SC [facility] PRN Reason: Protocol Last Admin: 10/18/17 22:41 Dose: Not Given Pantoprazole Sodium (Protonix Inj) 40 mg IVP Q12H [facility] Last Admin: 10/18/17 18:36 Dose: 40 mg Rosuvastatin Calcium (Crestor) 5 mg PO [facility] Last Admin: 10/18/17 21:32 Dose: 5 mg Sucralfate (Carafate Tab) 1 gm PO [facility] Last Admin: 10/18/17 21:32 Dose: 1 gm Physical Exam - Constitutional Appears: No Acute Distress - Head Exam Head Exam: ATRAUMATIC, NORMAL INSPECTION, NORMOCEPHALIC - Eye Exam Eye Exam: EOMI, Normal appearance, PERRL Pupil Exam: NORMAL ACCOMODATION, PERRL - ENT Exam ENT Exam: Mucous Membranes Moist, Normal Exam - Neck Exam Neck exam: Positive for: Normal Inspection Additional comments: R bruits - Respiratory Exam Respiratory Exam: NORMAL BREATHING PATTERN - Cardiovascular Exam Cardiovascular Exam: REGULAR RHYTHM - GI/Abdominal Exam GI & Abdominal Exam: Normal Bowel Sounds, Soft. absent: Tenderness - Extremities Exam Extremities exam: Positive for: full ROM, normal inspection - Neurological Exam Neurological exam: Alert, CN II-XII Intact, Normal Gait, Oriented x3, Reflexes Normal Additional comments: L LE motor 4/5 R 5/5 - Psychiatric Exam Psychiatric exam: Normal Affect, Normal Mood - Skin Skin Exam: Dry, Intact, Normal Color, Warm Results - Vital Signs Recent Vital Signs: Last Vital Signs Temp 98.2 F 10/18/17 23:20 Pulse 60 10/18/17 23:20 Resp 20 10/18/17 23:20 BP 114/59 L 10/18/17 23:20 Pulse Ox 99 10/18/17 23:20 - Labs Result Diagrams: 10/18/17 08:04 10/18/17 08:04 Labs: Laboratory Results - last 24 hr 10/17/17 10/18/17 10/18/17 07:16 06:46 08:04 WBC 6.5 RBC 3.36 L Hgb 11.0 Hct 31.2 L MCV 92.7 MCH 32.6 H MCHC 35.2 RDW 13.7 Plt Count 179 MPV 8.8 Neut % (Auto) 60.5 Lymph % (Auto) 29.2 [place] % (Auto) 7.0 Eos % (Auto) 3.0 Baso % (Auto) 0.3 Neut # (Auto) 3.9 Lymph # (Auto) 1.9 [place] # (Auto) 0.5 Eos # (Auto) 0.2 Baso # (Auto) 0.0 Sodium Potassium Chloride Carbon Dioxide Anion Gap BUN Creatinine Est GFR ( Amer) Est GFR (Non-Af Amer) POC Glucose (mg/dL) 125 H Random Glucose Hemoglobin A1c 8.1 H Calcium Phosphorus Magnesium 10/18/17 10/18/17 10/18/17 08:04 12:09 17:05 WBC RBC Hgb Hct MCV MCH MCHC RDW Plt Count MPV Neut % (Auto) Lymph % (Auto) [place] % (Auto) Eos % (Auto) Baso % (Auto) Neut # (Auto) Lymph # (Auto) [place] # (Auto) Eos # (Auto) Baso # (Auto) Sodium 140 Potassium 5.1 Chloride 102 Carbon Dioxide 29 Anion Gap 14 BUN 38 H Creatinine 1.8 H Est GFR ( Amer) 33 Est GFR (Non-Af Amer) 27 POC Glucose (mg/dL) 202 H 164 H Random Glucose 153 H Hemoglobin A1c Calcium 8.9 Phosphorus 3.7 Magnesium 2.7 H 10/18/17 21:45 WBC RBC Hgb Hct MCV MCH MCHC RDW Plt Count MPV Neut % (Auto) Lymph % (Auto) [place] % (Auto) Eos % (Auto) Baso % (Auto) Neut # (Auto) Lymph # (Auto) [place] # (Auto) Eos # (Auto) Baso # (Auto) Sodium Potassium Chloride Carbon Dioxide Anion Gap BUN Creatinine Est GFR ( Amer) Est GFR (Non-Af Amer) POC Glucose (mg/dL) 230 H Random Glucose Hemoglobin A1c Calcium Phosphorus Magnesium Assessment & Plan - Assessment and Plan (Free Text) Assessment: Asymptomatic R carotid stenosis US 420m/s R ICA stenosis 80-99% Cr 2.2 --> 1.8 f/u Cardiac evaluation for surgery Pt is moderate to high risk for Carotid Endarterectomy due to multiple cormorbidity including CHF, COPD, h/o CVA, recent EKG changes and Chronic kidney disease with perioperative major cardiac risk 10% May benefit from Carotid stent Recommend antiplatelet therapy : should be started preoperatively to reduce risk of stroke and MO and continued indefinitely post operatively. Plavix 75mg PO daily ASA 81mg PO daily Smoking cessation lifestyle modification Will DW Dr. England
[2017-10-19 07:43] VITALS: TEMP 97.4; O2SAT 97
[2017-10-19] MEDS: (Novolog) Insulin Aspart, Recombinant 100 u/ml 10 ml vial SC SCH ×2 (08:21→12:24)
[2017-10-19] MEDS: GlipiZIDE 2.5 mg Tab PO SCH (09:25)
[2017-10-19] MEDS: Patient's Own Medication - Tablet/Capusle PO SCH (09:27)
[2017-10-19 09:29] VITALS: BP 157/74
--- NOTE | 2017-10-19 10:19 | VASCLAB ---
PROCEDURE: HISTORY: hx of CVA in past , b/l carotid bruit COMPARISON: None available. TECHNIQUE: Grayscale and duplex Doppler evaluation of the cervical carotid and vertebral arteries were performed. The common carotid, carotid bifurcations and cervical Internal Carotid Artery (ICA) and proximal External Carotid Artery (ECA) were evaluated. The vertebral arteries were evaluated for gross patency and flow direction. Report prepared by NERISSA Robbins, RVT FINDINGS: RIGHT CAROTID ARTERIES: 1. Common Carotid Artery: No significant focal plaque formation of the right common carotid artery. Maximum Peak Systolic velocity: 76 cm/sec: End-diastolic velocity 9 cm/sec. 2. Carotid Bifurcation: plaque formation. Maximum Peak Systolic velocity: 93 cm/sec: End-diastolic velocity 10 cm/sec. 3. Internal Carotid Artery: Plaque description: 3.1. Proximal Segment: Peak systolic velocity 352 cm/sec: End-diastolic velocity 85 cm/sec - % stenosis 70-95% 3.2. Middle Segment: Peak systolic velocity 420 cm/sec: End-diastolic velocity 52 cm/sec - % stenosis 3.3. Distal Segment: Peak systolic velocity 174 cm/sec: End-diastolic velocity 28 cm/sec - % stenosis 4. External Carotid Artery: No significant focal plaque formation. Peak systolic velocity 147 cm/sec 5. ICA/CCA Ratio: 5.1 LEFT CAROTID ARTERIES: 1. Common Carotid Artery: No significant focal plaque formation of the left common carotid artery. Maximum Peak Systolic velocity: 70 cm/sec: End-diastolic velocity 10 cm/sec. 2. Carotid Bifurcation: plaque formation. Maximum Peak Systolic velocity: 175 cm/sec: End-diastolic velocity 0 cm/sec. 3. Internal Carotid Artery: Plaque description: 3.1. Proximal Segment: Peak systolic velocity 75 cm/sec: End-diastolic velocity 20 cm/sec - % stenosis 3.2. Middle Segment: Peak systolic velocity 101 cm/sec: End-diastolic velocity 16 cm/sec - % stenosis 3.3. Distal Segment: Peak systolic velocity 75 cm/sec: End-diastolic velocity 22 cm/sec - % stenosis 4. External Carotid Artery: No significant focal plaque formation. Peak systolic velocity 168 cm/sec 5. ICA/CCA Ratio: 1.8 VERTEBRAL ARTERIES: 1. Right Vertebral Artery: The right vertebral artery flow is retrograde. 2. Left Vertebral Artery: The left vertebral artery flow direction is antegrade. OTHER FINDINGS: 1. Right Brachial Blood pressure: 120/60 mmHg. 2. Left Brachial Blood pressure: 180/90 mmHg. IMPRESSION: RIGHT: There is 70-95% stenosis of the right internal carotid artery with heterogeneous irregular plaques in the internal carotid artery. Right proximal subclavian artery with velocity of 424cm/s and regrogread flow in the right vertebral artery is suggestive of subclavian steal syndrome. LEFT: Duplex scan does not suggest hemodynamically significant stenosis of the left extracranial carotid arteries. If clinically indicated CTA of neck arteries is recommended. S/W Sadaf RN at 1147am Right hemodynamically signficant diease of right ICA and low right brachial pressures.
--- NOTE | 2017-10-19 11:16 | CP.PCM.PN ---
Subjective - Date & Time of Evaluation Date of Evaluation: 10/19/17 Time of Evaluation: 11:20 - Subjective Subjective: Discharge summary dictated #[id number] Objective - Vital Signs/Intake and Output Vital Signs (last 24 hours): Temp Pulse Resp BP Pulse Ox 97.4 F L 61 20 157/74 H 97 10/19/17 07:30 10/19/17 07:30 10/19/17 07:30 10/19/17 09:26 10/19/17 07:30 Intake and Output: 10/19/17 10/19/17 06:59 18:59 Intake Total 480 Balance 480 - Medications Medications: Current Medications Al Hydrox/Mg Hydrox/Simethicone (Maalox Plus 30 Ml) 30 ml PO Q6 [facility] Last Admin: 10/19/17 06:08 Dose: 30 ml Aspirin (Ecotrin) 81 mg PO DAILY [facility] Last Admin: 10/19/17 09:26 Dose: 81 mg Carvedilol (Coreg) 25 mg PO BID [facility] Last Admin: 10/19/17 09:26 Dose: 25 mg Clopidogrel Bisulfate (Plavix) 75 mg PO DAILY [facility] Last Admin: 10/19/17 09:26 Dose: 75 mg Docusate Sodium (Colace) 100 mg PO DAILY [facility] Last Admin: 10/19/17 09:26 Dose: 100 mg Folic Acid (Folic Acid) 1 mg PO DAILY [facility] Last Admin: 10/19/17 09:26 Dose: 1 mg Glipizide (Glucotrol) 2.5 mg PO BID [facility] Last Admin: 10/19/17 09:25 Dose: 2.5 mg Home Med (Patient's Own Medication) 5 tab PO DAILY [facility] Last Admin: 10/19/17 09:27 Dose: 5 tab Hydralazine HCl (Apresoline) 25 mg PO BID [facility] Last Admin: 10/19/17 09:26 Dose: 25 mg Insulin Aspart (Novolog) 0 unit SC ACHS [facility] PRN Reason: Protocol Last Admin: 10/19/17 08:21 Dose: 1 unit Pantoprazole Sodium (Protonix Inj) 40 mg IVP Q12H [facility] Last Admin: 10/18/17 18:36 Dose: 40 mg Rosuvastatin Calcium (Crestor) 5 mg PO HS [facility] Last Admin: 10/18/17 21:32 Dose: 5 mg Sucralfate (Carafate Tab) 1 gm PO HS [facility] Last Admin: 10/18/17 21:32 Dose: 1 gm - Labs Labs: 10/18/17 08:04 10/18/17 08:04
--- NOTE | 2017-10-19 12:17 | MRI ---
PROCEDURE: MR Angiography of the neck without contrast HISTORY: Carotid stenosis COMPARISON: Comparison made with carotid Doppler exam dated 10/17/2017. TECHNIQUE: 3D [id number] angiography of the neck was performed. Rotating maximum intensity projection images of the cervical carotid and vertebral arteries were generated. The origins of the common carotid arteries were not visualized, which is a limitation inherent to the non-contrast time of flight technique. . FINDINGS: RIGHT CAROTID ARTERIES: Common Carotid Artery: Normal. Carotid Bifurcation: Normal. Internal Carotid Artery:There is a significant on/ high-grade stenosis of the right internal carotid artery which exhibits a near string sign at along its proximal margin. . Narrowing estimated at approximately 80 % or more. External Carotid Artery (proximal branches): Normal. LEFT CAROTID ARTERIES: Common Carotid Artery: Normal. Carotid Bifurcation: Normal. Internal Carotid Artery:Normal. External Carotid Artery (proximal branches): Normal. VERTEBRAL ARTERIES: Right vertebral artery is not visualized and consistent with this patient's recent Doppler finding of subclavian steal with retrograde flow in right vertebral artery which will not be visualized on standard MRI of the neck Left Vertebral Artery: Normal. OTHER FINDINGS: None. IMPRESSION: Severe high-grade stenosis right internal carotid artery estimated narrowing of the 80 percent or more. Right vertebral artery is not visualized and consistent with this patient's recent Doppler finding of subclavian steal with retrograde flow in right vertebral artery which will not be visualized on standard MRI of the neck
[2017-10-19 12:59] VITALS: PULSE 52
[2017-10-19 14:02] LABS: BASO % 0.3 % (0.0-2.0); EOS # 0.2 K/uL (0.0-0.7); EOS % 2.7 % (0.0-4.0); HEMOGLOBIN 10.7 g/dL (11.0-16.0); LYMPH # 1.5 K/uL (1.0-4.3); LYMPH % 25.6 % (20.0-40.0); MEAN CELL VOLUME 93.5 fL (81.0-99.0); MEAN CORPUSCULAR HEMOGLOBIN 32.4 pg (27.0-31.0); MEAN CORPUSCULAR HGB CONC 34.6 g/dL (33.0-37.0); MEAN PLATELET VOLUME 8.8 fL (7.2-11.7); MONO # 0.3 K/uL (0.0-0.8); MONO % 5.5 % (0.0-10.0); NEUT % 65.9 % (50.0-75.0); RBC 3.31 Mil/uL (3.80-5.20); RED CELL DISTRIBUTION WIDTH 13.9 % (11.5-14.5)
[2017-10-19 14:18] LABS: ALB/GLOB RATIO 1.2 (1.0-2.1); ALBUMIN 3.6 g/dL (3.5-5.0); CALCIUM 8.4 mg/dl (8.6-10.4)
--- NOTE | 2017-10-19 14:45 | CARD ---
APPROVED REPORT EKG Measurement Heart [id number] <Conclusion> * Pediatric ECG analysis * Sinus bradycardia with 1st degree AV block Left axis deviation ST abnormality and T wave inversion in Lateral leads
--- NOTE | 2017-10-19 15:14 | CARD ---
APPROVED REPORT EXAM: Two-dimensional and M-mode echocardiogram with Doppler and color Doppler. Other Information Quality : AverageRhythm : NSR INDICATION CAD Congestive Heart Failure M-Mode DIMENSIONS Left Atrium (MM)4.28 (2.5-4.0cm)IVSd1.29 (0.7-1.1cm) Aortic Root2.62 (2.2-3.7cm)LVDd5.02 (4.0-5.6cm) Aortic Cusp Exc.1.36 (1.5-2.0cm)PWd1.40 (0.7-1.1cm) FS (%) 27 %LVDs3.65 (2.0-3.8cm) LVEF (%)53 (>50%) Aortic Valve AoV Peak Owytzfbk576.9cm/Surjit Peak GR.17mmHgAI P 1/2 Pvgx880sr Mitral Valve MV E Splxubit82.4cm/sMV A Ehjbwemr109.9cm/sE/A ratio0.6 TDI E/Lateral E'0.0E/Medial E'0.0 Tricuspid Valve TR Peak Jtbgnpvl763et/sTR Peak Gr.74ewMsQPRM51ttAd LEFT VENTRICLE The left ventricle is normal size. There is moderate concentric left ventricular hypertrophy. The Ejection Fraction is 50-55%. There is normal LV segmental wall motion. Transmitral Doppler flow pattern is Grade I-abnormal relaxation pattern. RIGHT VENTRICLE The right ventricle is normal size. The right ventricular systolic function is normal. ATRIA The left atrium is mildly dilated. The right atrium size is normal. The interatrial septum is intact with no evidence for an atrial septal defect. AORTIC VALVE The aortic valve is normal in structure. There is mild aortic regurgitation. MITRAL VALVE The mitral valve is normal in structure. Mitral regurgitation is mild. TRICUSPID VALVE The tricuspid valve is normal in structure. There is mild tricuspid regurgitation. Right ventricular systolic pressure is estimated at 36 mmHg. There is mild pulmonary hypertension. PULMONIC VALVE The pulmonary valve is normal in structure. GREAT VESSELS The aortic root is normal size. The aortic root displays mild sclerocalcific changes of the aortic root. The IVC is normal in size and collapses >50% with inspiration. PERICARDIAL EFFUSION There is no pericardial effusion. <Conclusion> The left ventricle is normal size. There is moderate concentric left ventricular hypertrophy. The Ejection Fraction is 50-55%. Transmitral Doppler flow pattern is Grade I-abnormal relaxation pattern. The left atrium is mildly dilated. There is mild aortic regurgitation. Mitral regurgitation is mild. There is mild tricuspid regurgitation. Right ventricular systolic pressure is estimated at 36 mmHg. There is mild pulmonary hypertension. The aortic root is normal size. The aortic root displays mild sclerocalcific changes of the aortic root. There is no pericardial effusion.
--- NOTE | 2017-10-20 01:22 | CON ---
DATE: HISTORY OF PRESENT ILLNESS: An 82-year-old woman admitted to the hospital with severe constipation, subsequently found to have severe carotid artery disease, particularly on the right side. detailed history, both in Cymro and Beninese with her daughter present. She does not appear to have any symptoms regarding this on the right side. MEDICATIONS: Her medications at present include Plavix. PAST MEDICAL HISTORY: Includes history of breast cancer and coronary involvement. Our plan at present would be to recommend that she undergo surgical intervention. There were no immediate plans to do so. She is asymptomatic. The patient will follow up with me in the office. Diet, activity, and followup instructions were given to her as well as the need to continue medication. There was reversible flow noted with regard to her right subclavian artery and noticed on her Duplex scan, and I think this should be correlated. Many thanks for asking me to see this patient. They will follow up with me. Sha England Jr., MD [facility]
--- NOTE | 2017-10-20 08:34 | DS ---
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 HISTORY OF PRESENT ILLNESS: Ms. Cat is an 82-year-old female with past medical history of hypertension, hyperlipidemia, diabetes mellitus, CAD, CHF, cardiomyopathy, and gastritis who has been following up with Dr. Topete as primary care physician and Dr. Lind as grain commodity manager, came into the ED, brought by the patient's daughter for symptoms of acute epigastric pain, not relieved by H2 blockers or any other PPIs for 4 days prior to admission. In the ED, the patient was found to be having elevated potassium and elevated BUN and creatinine. The patient is being admitted for further management. The patient is feeling much better. Denied any headache or dizziness. Denied any chest pain, shortness of breath, or wheezing. Denied any nausea, vomiting, abdominal pain, diarrhea, or constipation. Denied any urinary complaints. Denied any leg pains or leg cramps. Denied any other neurologic symptoms. All other systems reviewed and were found to be negative. PHYSICAL EXAMINATION: GENERAL: Elderly female, lying in bed, in no acute distress. VITAL SIGNS: Blood pressure 131/59, pulse 61, respirations 20, temperature 97.4 degrees Fahrenheit, O2 saturation is 97% on room air. HEENT: Pupils equal, round, reacting to light and accommodation. Extraocular muscles intact. No icterus. No pallor. No oral thrush. No pharyngeal congestion. NECK: Supple. No JVD. LUNGS: Bilateral vesicular breath sounds. No wheezing. No rhonchi. CARDIOVASCULAR: S1 and S2 present, regular. ABDOMEN: Soft, nontender. Bowel sounds present. No guarding. No rigidity. No rebound tenderness noted. CENTRAL NERVOUS SYSTEM: Alert, awake, oriented x3. No focal deficits noted. EXTREMITIES: No edema. Palpable peripheral pulses. LABORATORY DATA: Labs done from this morning: WBC 6, hemoglobin 10.7, hematocrit 30.9, platelets 171. Sodium 130, potassium 4.8, chloride 102, bicarb 30, BUN 37, creatinine 1.6, glucose 151, calcium 8.4. AST 32, ALT 21, alkaline phosphatase 71, total protein 6.7, albumin 3.1. Cardiac enzymes x3 negative. UA negative. Hemoglobin A1c 8.1. Cholesterol 62, triglycerides 98, LDL less than 30, HDL 31. TSH 1.56. IMAGING: Neck MRA consistent with severe high-grade stenosis, right internal carotid artery estimated narrowing of the 80% or more, right vertebral artery was not visualized and consistent with this patient's recent Doppler finding of subclavian steal with retrograde flow in right vertebral artery. Carotid Doppler, right: 70% to 95% stenosis of the right internal carotid artery, subclavian steal syndrome possible. Echocardiogram consistent with EF of 50% to 55%, moderate concentric LVH. HOSPITAL COURSE: The patient was admitted to the hospital for epigastric burning pain. She was ruled out for any acute coronary syndrome by cardiac enzymes, no acute EKG changes. Echo did not show any wall motion abnormalities. The patient was given Maalox, Carafate, and Protonix with which her symptoms improved. The patient was found to be having right carotid artery stenosis for which the patient underwent ultrasound and MRA of the neck, which is consistent with more than 80% of stenosis on the right, high-grade carotid artery stenosis. The patient was evaluated by Cardiology, cleared from cardiac standpoint for discharge. The patient was evaluated by Vascular Surgery. The patient may require carotid artery stenting, and the patient needs to follow up with her primary and Cardiology for clearance as outpatient. Discussed with Vascular Surgery who spoke to the patient's daughter at length and explained the procedure. It will be the surgical options where they pursue that as outpatient as per Vascular Surgery and the patient's daughter. We will continue with the Plavix and low-dose aspirin. The patient's hospital course was also complicated by elevated potassium and elevated BUN and creatinine. The patient's spironolactone and losartan were held, and Lasix was also held. The patient's creatinine improved from 2.8 to 1.6 today, and potassium remained stable after one dose of Kayexalate. For now, we will hold DIPESH inhibitors and Aldactone and advised the patient's daughter to follow up with primary and Cardiology for further adjustment of her cardiac medications based on her renal condition and her tendency to develop hyperkalemia, which needs to be monitored. Advised the patient to continue with her current diabetic medications. Advised the patient to call me or return to the ED if any worsening of symptoms or any new symptoms occur. PATIENT'S CONDITION UPON DISCHARGE: The patient is alert, awake, and oriented x3 and hemodynamically stable at the time of discharge. DISCHARGE INSTRUCTIONS: Follow up with PMD. Follow up with Cardiology. Follow up with GI. Follow up with Vascular Surgery. DISCHARGE DIET: Low-sodium, low-cholesterol, 1800-calorie ADA diet. ACTIVITY: As tolerated. DISCHARGE MEDICATIONS: Plavix 75 mg p.o. daily, aspirin 81 mg daily, Coreg 25 mg p.o. b.i.d., folic acid 1 mg daily, Lasix 20 mg daily, glipizide 2.5 mg b.i.d., hydralazine 25 mg p.o. b.i.d., letrozole 2.5 mg p.o. daily, Tradjenta 5 mg daily, metformin 500 mg p.o. b.i.d., omeprazole 40 mg b.i.d., Repatha 140 mg subcutaneous daily, Crestor 5 mg daily, Carafate 1 gm p.o. at bedtime. Pamela Escalante MD
--- NOTE | 2017-10-20 13:45 | CARD ---
APPROVED REPORT EKG Measurement Heart [id number] [place] [id number] <Conclusion> Sinus bradycardia with 1st degree AV block with premature atrial complexes Voltage criteria for left ventricular hypertrophy T wave abnormality, consider lateral ischemia Abnormal ECG
== END 2017-10-19 15:49 | disposition home or self-care (01) | DRG 392 ==
LOC: C.ER 13:39 → C.9E 16:11 → C.6T 17:05
PROVIDERS: ADMIT Internal Medicine; ATTEND Internal Medicine
DX: K29.00 Acute gastritis without bleeding (principal); I13.0 Hypertensive heart and chronic kidney disease with heart failure and stage 1 through stage 4 chronic kidney disease, or unspecified chronic kidney disease; I42.9 Cardiomyopathy, unspecified; N18.4 Chronic kidney disease, stage 4 (severe); I69.254 Hemiplegia and hemiparesis following other nontraumatic intracranial hemorrhage affecting left non-dominant side; J44.9 Chronic obstructive pulmonary disease, unspecified; K59.00 Constipation, unspecified; I65.21 Occlusion and stenosis of right carotid artery; Z87.891 Personal history of nicotine dependence; Z90.12 Acquired absence of left breast and nipple; E78.5 Hyperlipidemia, unspecified; E11.22 Type 2 diabetes mellitus with diabetic chronic kidney disease; E87.5 Hyperkalemia; I25.10 Atherosclerotic heart disease of native coronary artery without angina pectoris; I50.9 Heart failure, unspecified; D64.9 Anemia, unspecified

== ENCOUNTER 2017-12-30 06:33 | Inpatient (IN) | payer OTHER ==
[2017-12-24 09:10] VITALS: BMI 29.2
[2017-12-30] MEDS ORDERED: ceFAZolin IV 1 gm in Dextrose 0 GM/0 ML BAG IVPB ONE (07:24)
[2017-12-30] MEDS ORDERED: Sodium Chloride 0.9% 20 ML IV ONE (07:24)
[2017-12-30] MEDS ORDERED: Lidocaine Hydrochloride 0 ML INJ ONE (07:25)
[2017-12-30] MEDS ORDERED: HEPARIN-NS 5,000 UNITS/500 ML 5,000 UNIT/500 ML BAG IV ONE (07:25)
[2017-12-30] MEDS ORDERED: Thrombin Topical 20,000 Intl Units Spray Kit TOP ONE (07:26)
[2017-12-30] MEDS ORDERED: ceFAZolin IV 1 gm in Dextrose 2 GM/100 ML BAG IVPB ONE (07:28)
[2017-12-30] MEDS ORDERED: Propofol 10 mg/ml Inj (20 ML) ONE (07:40)
[2017-12-30] MEDS ORDERED: Midazolam 2 MG/2 ML VIAL ONE (07:40)
[2017-12-30] MEDS ORDERED: Etomidate 20 mg/10ml Inj IV ONE (07:59)
[2017-12-30] MEDS ORDERED: Rocuronium 10 mg/ml (10 ml) ONE (07:59)
[2017-12-30 08:00] LABS: CALCIUM 9.1 mg/dl (8.6-10.4)
[2017-12-30] MEDS ORDERED: Neostigmine Methylsulfate 3mg/3ml Syringe IV ONE (10:45)
[2017-12-30] MEDS ORDERED: Phenylephrine 10 mg/ml Inj ONE (10:45)
[2017-12-30] MEDS ORDERED: HYDROmorphone 0.5 mg/0.5 ml ISec IVP PRN (11:52)
--- NOTE | 2017-12-30 11:54 | PCM.SURG1 ---
Surgeon's Initial Post Op Note - Surgeon's Notes Surgeon: lynette Stock Manager: marisela Type of Anesthesia: General Endo Anesthesia Administered By: ximena Pre-Operative Diagnosis: right carotid stenosis/previous cva Operative Findings: ugly plaque involving right ICA Post-Operative Diagnosis: same Operation Performed: right carotid endarterectomy Specimen/Specimens Removed: plaque Estimated Blood Loss: EBL {In ML}: 350 Blood Products Given: N/A Drains Used: Hemovac Post-Op Condition: Good Date of Surgery/Procedure: 12/30/17 Time of Surgery/Procedure: 11:54
[2017-12-30] MEDS ORDERED: Oxycodone/Acetaminophen 5/325 mg Tab PO PRN (11:55)
[2017-12-30] MEDS ORDERED: (Novolin R) Insulin Human Regular 100 units/ml vial ONE (12:30)
[2017-12-30] MEDS ORDERED: Lactated Ringer's 1,000 ML IV ONE (12:45)
[2017-12-30] MEDS: Dextrose 5%/0.45% NS 1,000 ML IV SCH (14:54)
[2017-12-30] MEDS: (Novolin R) Insulin Human Regular 100 units/ml vial SC SCH ×2 (18:06→21:27)
[2017-12-30] MEDS: GlipiZIDE 2.5 mg SR Tab PO SCH (18:17)
--- NOTE | 2017-12-30 19:35 | CP.PCM.CON ---
History of Present Illness - History of Present Illness History of Present Illness: Jason Mccallum DO PGY-1, ICU consult note for Dr. Branham Pt chart and record was reviewed prior to evaluatoin This is an 82 year old greenlandic speaking female with PMHx of CKD, CHF, HTN, hypercholesterolemia, gastritis, right carotid stenosis who is s/p right carotid carotid endarterectomy by vascular surgery. Translation was obtained via family member. ICU was consulted for neurological and cardiovascular monitoring. Pt was seen and examined at bedside. Pt only complains of mild abdominal pain, which she attributes to gastritis. She denies any bleeding, headache, dizziness , lightheadedness, chest pain, palpitations, sob, n/v/d, paresthesias. 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 FMHx:HTN in mother and CVA had CVA Allx: NKDA Review of Systems - Review of Systems All systems: reviewed and no additional remarkable complaints except (as per HPI ) Past Patient History - Past Medical History & Family History Past Medical History?: Yes - Past Social History Smoking Status: Never Smoked - CARDIAC Hx Cardiac Disorders: Yes Hx Congestive Heart Failure: Yes Hx Hypercholesterolemia: Yes Hx Hypertension: Yes Hx Peripheral Edema: Yes (not at present) Hx Peripheral Vascular Disease: Yes Other/Comment: right carotid stenosis. left side weakness - PULMONARY Hx Respiratory Disorders: Yes Hx Chronic Obstructive Pulmonary Disease (COPD): Yes Hx Pneumonia: Yes (1 year ago) - NEUROLOGICAL Hx Neurological Disorder: Yes HX Cerebrovascular Accident: Yes (2003) Hx Dizziness: Yes - HEENT Hx HEENT Problems: Yes Hx Cataracts: Yes Hx Glaucoma: Yes Other/Comment: wears glasses for reading - RENAL Hx Chronic Kidney Disease: Yes (renal insufficiency) - ENDOCRINE/METABOLIC Hx Endocrine Disorders: Yes Hx Diabetes Mellitus Type 2: Yes - HEMATOLOGICAL/ONCOLOGICAL Hx Blood Disorders: No Hx Anemia: Yes Hx Cancer: Yes (left breast 4 years ago) - INTEGUMENTARY Hx Dermatological Problems: No - MUSCULOSKELETAL/RHEUMATOLOGICAL Hx Falls: Yes - GASTROINTESTINAL Hx Gastrointestinal Disorders: No Hx Gastritis: Yes - GENITOURINARY/GYNECOLOGICAL Hx Genitourinary Disorders: Yes Hx Incontinence: Yes - PSYCHIATRIC Hx Psychophysiologic Disorder: No Hx Substance Use: No - SURGICAL HISTORY Hx Surgeries: Yes Hx Mastectomy: Yes (2016/left) Other/Comment: L breast mastectomy - ANESTHESIA Hx Anesthesia: Yes Hx Anesthesia Reactions: No Hx Malignant Hyperthermia: No Has any member of the family had a problem w/ anesthesia?: No Meds Allergies/Adverse Reactions: Allergies Allergy/AdvReac Type Severity Reaction Status Date / Time No Known Allergies Allergy Verified 03/27/16 10:04 - Medications Medications: Current Medications Aspirin (Ecotrin) 81 mg PO DAILY [facility] Carvedilol (Coreg) 25 mg PO BID [facility] Last Admin: 12/30/17 18:06 Dose: 25 mg Clopidogrel Bisulfate (Plavix) 75 mg PO DAILY [facility] Cyanocobalamin (Vitamin B12 100 Mcg Tab) 100 mcg PO DAILY [facility] Docusate Sodium (Colace) 100 mg PO DAILY [facility] Famotidine (Pepcid) 20 mg PO DAILY [facility] Last Admin: 12/30/17 18:06 Dose: 20 mg Folic Acid (Folic Acid) 1 mg PO DAILY [facility] Furosemide (Lasix) 20 mg PO DAILY [facility] Glipizide (Glucotrol Xl) 2.5 mg PO BID [facility] Last Admin: 12/30/17 18:17 Dose: 2.5 mg Home Med (Linagliptin [Tradjenta]) 5 mg PO DAILY [facility] Dextrose/Sodium Chloride (Dextrose 5%/0.45% Ns 1000 Ml) 1,000 mls @ 80 mls/hr IV .[id number] [facility] Last Admin: 12/30/17 14:54 Dose: 80 mls/hr Insulin Human Regular (Novolin R) 0 unit SC ACHS [facility] PRN Reason: Protocol Last Admin: 12/30/17 18:06 Dose: 2 u Losartan Potassium (Cozaar) 50 mg PO DAILY [facility] Metformin HCl (Glucophage) 500 mg PO BID [facility] Last Admin: 12/30/17 18:06 Dose: 500 mg Oxycodone/Acetaminophen (Percocet 5/325 Mg Tab) 1 tab PO Q4H PRN PRN Reason: Pain, moderate (4-7) Stop: 01/02/18 11:56 Rosuvastatin Calcium (Crestor) 20 mg PO HS [facility] Spironolactone (Aldactone) 25 mg PO DAILY [facility] Sucralfate (Carafate Tab) 1 gm PO HS [facility] Physical Exam - Constitutional Appears: Well, Non-toxic, No Acute Distress - Head Exam Head Exam: ATRAUMATIC, NORMAL INSPECTION - Eye Exam Eye Exam: EOMI, PERRL Pupil Exam: NORMAL ACCOMODATION - ENT Exam ENT Exam: Mucous Membranes Moist - Neck Exam Additional comments: (+) pressure dressing to the right lateral neck in place; C/D/I; no signs of bleeding. - Respiratory Exam Respiratory Exam: Accessory Muscle Use, Clear to Auscultation Bilateral, NORMAL BREATHING PATTERN - Cardiovascular Exam Cardiovascular Exam: REGULAR RHYTHM, +S1, +S2 - GI/Abdominal Exam GI & Abdominal Exam: Normal Bowel Sounds, Soft, Tenderness ((+) mild tenderness to epigastric area) - Extremities Exam Extremities exam: Positive for: full ROM, normal inspection. Negative for: calf tenderness, pedal edema - Neurological Exam Neurological exam: Alert, CN II-XII Intact, Normal Gait, Oriented x3 Additional comments: (+) 5/5 str in bilateral upper and lower extremities - Psychiatric Exam Psychiatric exam: Normal Affect, Normal Mood - Skin Skin Exam: Dry, Normal Color, Warm Results - Vital Signs Recent Vital Signs: Last Vital Signs Temp 97.7 F 12/30/17 13:30 Pulse 62 12/30/17 19:17 Resp 12 12/30/17 19:17 BP 170/48 H 12/30/17 19:17 Pulse Ox 95 12/30/17 19:17 - Labs Result Diagrams: 12/30/17 07:44 Labs: Laboratory Results - last 24 hr 12/30/17 12/30/17 12/30/17 07:30 07:44 07:44 Sodium 141 Potassium 4.8 Chloride 105 Carbon Dioxide 28 Anion Gap 13 BUN 22 H Creatinine 1.3 H Est GFR ( Amer) 48 Est GFR (Non-Af Amer) 39 POC Glucose (mg/dL) 179 H Random Glucose 179 H Calcium 9.1 Blood Type O POSITIVE Antibody Screen Negative 12/30/17 12/30/17 12:06 16:19 Sodium Potassium Chloride Carbon Dioxide Anion Gap BUN Creatinine Est GFR ( Amer) Est GFR (Non-Af Amer) POC Glucose (mg/dL) 334 H 226 H Random Glucose Calcium Blood Type Antibody Screen Assessment & Plan - Assessment and Plan (Free Text) Assessment: This is an 82 year old greenlandic speaking female with PMHx of CKD, CHF, HTN, hypercholesterolemia, gastritis, right carotid stenosis who is s/p right carotid carotid endarterectomy by vascular surgery. Translation was obtained via family member. ICU was consulted for neurological and cardiovascular monitoring. Plan: Neuro: - monitor for mental status changes - pt is AAOx3 - neurochecks q1h - percocet for pain as per vascular surgery Cardio: - maintain map>65 mmHg - s/p right endarterectomy - continue home carvedilol, rosuvastatin as per vasc surgery - f/u vascular surgery recs Pulm: - maintain spo2>92% - NC prn GI: - CLD as per vasc surgery - continue home carafate as per vasc surgery - pepcid instead of home omeprazole for history of gastritis and plan to administer plavix tomorrow as per vasc surgery Renal: - pt has ckd at baseline - d5 1/2 NS as per vasc surgery - maintain euvolemia Endo: - maintain euglycemia - accucheck achs - ISS medium - continue home glipizide, metformin Heme: - f/u cbc in am - scds for vte ppx ID: - no signs of infectious etiology PPX: pepcid, scds Dispo: Pt accepted to ICU for cardiovascular and neurvascular monitoring s/p endarterectomy of right ICA Case was reviewed and discussed with attending physician, Dr. Branham
--- NOTE | 2017-12-30 23:12 | OP ---
Copied To: Sha England Jr., MD Attending MD: Sha England Jr., MD PROCEDURE DATE: 12/30/2017 PREOPERATIVE DIAGNOSIS: Right carotid stenosis. PROCEDURE CARRIED OUT: Right carotid endarterectomy. SURGEON: Sha England Jr., MD TRACTOR TRAILER OPERATOR: hammad CAPELLAN ANESTHESIOLOGIST: Dr. Thrasher ANESTHESIA: General anesthesia. INDICATIONS: An 82-year-old woman with history of previous stroke, right hemispheric; history of breast cancer; hypertension; and diabetes. OPERATIVE FINDINGS: The plaque extended up to the internal carotid artery and was primarily in the internal carotid artery rather than the common carotid artery. The rest of the intraoperative findings are unremarkable. We used a Scoma shunt. We placed a LeMaitre bovine pericardial patch. We left a tissue drain in. We used the shunt during the procedure. At the end of the procedure, the patient was awoken, was moving all fours, and following commands. Blood loss was 350. DESCRIPTION OF PROCEDURE: The patient was given general anesthesia and intravenous antibiotics. The common internal and external carotid arteries were exposed. Hypoglossal nerve was identified. After dissection of the vessels, heparin was given. The vessels were clamped. The endarterectomy was carried out after the shunt was placed which provided a continuous monitor of flow up to the brain. After this had been done, we then removed the shunt, placed the patch in place, carried out reinforcing sutures as necessary and in as much the patient was on Plavix, it required sometime to make sure that we had adequate hemostasis. After this had been done, we then closed the wounds with Monocryl and nylon sutures and closed the skin with subcuticular closer and Steri-Strips. BLOOD LOSS: Greater than 350 mL. OPERATION CARRIED OUT: Right carotid endarterectomy. Sha England Jr., MD cc: 1. Dr. Topete 2. Broderick Lind MD MTDD
[2017-12-31] MEDS: Dextrose 5%/0.45% NS 1,000 ML IV SCH ×2 (02:40→15:34)
[2017-12-31 06:28] LABS: BASO % 0.3 % (0.0-2.0); EOS % 0.3 % (0.0-4.0); LYMPH # 1.6 K/uL (1.0-4.3); LYMPH % 17.4 % (20.0-40.0); MEAN CELL VOLUME 93.6 fL (81.0-99.0); MEAN CORPUSCULAR HGB CONC 34.2 g/dL (33.0-37.0); MONO # 0.7 K/uL (0.0-0.8); MONO % 7.6 % (0.0-10.0); NEUT % 74.4 % (50.0-75.0); RBC 2.83 Mil/uL (3.80-5.20); WHITE BLOOD COUNT 9.4 K/uL (4.8-10.8)
[2017-12-31 06:45] LABS: ALB/GLOB RATIO 1.3 (1.0-2.1); ALBUMIN 3.3 g/dL (3.5-5.0); CALCIUM 8.4 mg/dl (8.6-10.4)
[2017-12-31] MEDS: (Novolin R) Insulin Human Regular 100 units/ml vial SC SCH ×2 (07:51→12:18)
[2017-12-31] MEDS ORDERED: Nitroglycerin 2% Ointment Foilpak UD TOP PRN (08:01)
[2017-12-31] MEDS: GlipiZIDE 2.5 mg SR Tab PO SCH (09:39)
[2017-12-31] MEDS ORDERED: Home Med 1 UNIT (Linagliptin [Tradjenta] 5 MG) PO SCH (10:00)
--- NOTE | 2017-12-31 11:45 | CP.PCM.PN ---
Subjective - Date & Time of Evaluation Date of Evaluation: 12/31/17 Time of Evaluation: 07:45 - Subjective Subjective: dw no deficit no hematoma drain, a line removed to floor hgb9/26 will dc in pm if eating and walking ok daughter aware and at bedside Objective - Vital Signs/Intake and Output Vital Signs (last 24 hours): Temp Pulse Resp BP Pulse Ox 98.6 F 69 22 178/61 H 99 12/31/17 08:00 12/31/17 11:01 12/31/17 11:01 12/31/17 11:01 12/31/17 11:01 Intake and Output: 12/31/17 12/31/17 06:59 18:59 Intake Total 1210 880 Output Total 500 400 Balance 710 480 - Medications Medications: Current Medications Amlodipine Besylate (Norvasc) 5 mg PO ONCE ONE Stop: 12/31/17 11:46 Amlodipine Besylate (Norvasc) 10 mg PO DAILY [facility] Aspirin (Ecotrin) 81 mg PO DAILY [facility] Last Admin: 12/31/17 09:59 Dose: 81 mg Carvedilol (Coreg) 25 mg PO BID [facility] Last Admin: 12/31/17 09:36 Dose: 25 mg Clopidogrel Bisulfate (Plavix) 75 mg PO DAILY [facility] Last Admin: 12/31/17 09:36 Dose: 75 mg Cyanocobalamin (Vitamin B12 100 Mcg Tab) 100 mcg PO DAILY [facility] Last Admin: 12/31/17 09:39 Dose: 100 mcg Docusate Sodium (Colace) 100 mg PO DAILY [facility] Last Admin: 12/31/17 09:35 Dose: 100 mg Famotidine (Pepcid) 20 mg PO DAILY [facility] Last Admin: 12/31/17 09:35 Dose: 20 mg Folic Acid (Folic Acid) 1 mg PO DAILY [facility] Last Admin: 12/31/17 09:37 Dose: 1 mg Furosemide (Lasix) 20 mg PO DAILY [facility] Last Admin: 12/31/17 09:36 Dose: 20 mg Glipizide (Glucotrol Xl) 2.5 mg PO BID [facility] Last Admin: 12/31/17 09:39 Dose: 2.5 mg Home Med (Linagliptin [Tradjenta]) 5 mg PO DAILY [facility] Dextrose/Sodium Chloride (Dextrose 5%/0.45% Ns 1000 Ml) 1,000 mls @ 80 mls/hr IV .[id number] [facility] Last Admin: 12/31/17 02:40 Dose: 80 mls/hr Insulin Human Regular (Novolin R) 0 unit SC ACHS [facility] PRN Reason: Protocol Last Admin: 12/31/17 07:51 Dose: 2 u Losartan Potassium (Cozaar) 50 mg PO DAILY [facility] Last Admin: 12/31/17 09:38 Dose: 50 mg Metformin HCl (Glucophage) 500 mg PO BID [facility] Last Admin: 12/31/17 09:35 Dose: 500 mg Nitroglycerin (Nitro-Bid 2% Oint) 1 ea TOP PRN PRN PRN Reason: hypertension Oxycodone/Acetaminophen (Percocet 5/325 Mg Tab) 1 tab PO Q4H PRN PRN Reason: Pain, moderate (4-7) Stop: 01/02/18 11:56 Rosuvastatin Calcium (Crestor) 20 mg PO HS [facility] Last Admin: 12/30/17 21:41 Dose: 20 mg Spironolactone (Aldactone) 25 mg PO DAILY [facility] Last Admin: 12/31/17 09:37 Dose: 25 mg Sucralfate (Carafate Tab) 1 gm PO HS [facility] Last Admin: 12/30/17 21:41 Dose: 1 gm - Labs Labs: 12/31/17 06:20 12/31/17 06:20
--- NOTE | 2017-12-31 11:56 | CP.CCUPN ---
<Jason Mccallum - Last Filed: 12/31/17 15:11> CCU Subjective - Physician Review Subjective (Free Text): Jason Mccallum DO PGY-1, ICU progress note for Dr. Amor Bustillos Pt was seen and examined at bedside. Pt is only complaining of neck pain at the site of the endarterectomy. Vascular surgical team, with attending, at bedside for dressing change report that this pain is normal. Drain was removed successfully, and mew dressing was applied. Pt has no other compalints at this time. Pt denies headache, visual changes, dizziness, lightheadedness, chest pain , sob, abdominal pain, n/v/d, numbness or tingling. A 12-point ROS was obtained and is otherwise unremarkable. CCU Objective - Vital Signs / Intake & Output Vital Signs (Last 4 hours): Vital Signs Temp Pulse Resp BP Pulse Ox 12/31/17 11:01 69 22 178/61 H 99 12/31/17 11:00 64 10 L 97 12/31/17 10:04 62 17 176/52 H 99 12/31/17 10:00 63 16 99 12/31/17 09:36 168/57 H 12/31/17 09:00 65 10 L 168/57 H 96 12/31/17 08:00 98.6 F 61 20 168/61 H 98 Intake and Output (Last 8hrs): Intake & Output 12/30/17 12/31/17 12/31/17 22:59 06:59 14:59 Intake Total 710 740 880 Output Total 400 500 400 Balance 310 240 480 Weight 73.482 kg Intake: Intake, IV Amount 560 640 400 Right Antecubital 560 640 400 Oral 150 100 480 Output: Urine 400 500 400 Urine, Voided 400 500 400 Other: # Voids Urine, Voided 1 - Physical Exam Head: Positive for: Atraumatic, Normocephalic Pupils: Positive for: PERRL Extroacular Muscles: Positive for: EOMI Conjunctiva: Positive for: Normal Mouth: Positive for: Moist Mucous Membranes Neck: Positive for: Normal Range of Motion, Other ((+) incision site dressing changed; no bleeding, no hematoma; clean dressing was re-applied) Respiratory/Chest: Positive for: Clear to Auscultation, Good Air Exchange. Negative for: Respiratory Distress Cardiovascular: Positive for: Regular Rate and Rhythm, Normal S1, S2 Abdomen: Positive for: Tenderness (mild epigastric tenderess on palpation), Normal Bowel Sounds. Negative for: Distention, Peritoneal Signs, Rebound, Guarding Upper Extremity: Positive for: Normal Inspection, Other ((+) pressure dressing on right upper extremity due to arterial line removal) Lower Extremity: Positive for: Normal Inspection Neurological: Positive for: GCS=15, CN II-XII Intact, Motor Func Grossly Intact , Normal 2Pt Descrimination Skin: Positive for: Warm, Dry Psychiatric: Positive for: Alert, Oriented x 3 - Medications Active Medications: Active Medications Generic Name Dose Route Start Last Admin Trade Name Freq PRN Reason Stop Dose Admin Amlodipine Besylate 10 mg 01/01/18 10:00 Norvasc PO DAILY ANTHONY Aspirin 81 mg 12/31/17 10:00 12/31/17 09:59 Ecotrin PO 81 mg DAILY ANTHONY Administration Carvedilol 25 mg 12/30/17 18:00 12/31/17 09:36 Coreg PO 25 mg BID ANTHONY Administration Clopidogrel Bisulfate 75 mg 12/31/17 10:00 12/31/17 09:36 Plavix PO 75 mg DAILY ANTHONY Administration Cyanocobalamin 100 mcg 12/31/17 10:00 12/31/17 09:39 Vitamin B12 100 Mcg Tab PO 100 mcg DAILY [facility] Administration Docusate Sodium 100 mg 12/31/17 10:00 12/31/17 09:35 Colace PO 100 mg DAILY ANTHONY Administration Famotidine 20 mg 12/30/17 18:00 12/31/17 09:35 Pepcid PO 20 mg DAILY ANTHONY Administration Folic Acid 1 mg 12/31/17 10:00 12/31/17 09:37 Folic Acid PO 1 mg DAILY ANTHONY Administration Furosemide 20 mg 12/31/17 10:00 12/31/17 09:36 Lasix PO 20 mg DAILY ANTHONY Administration Glipizide 2.5 mg 12/30/17 18:00 12/31/17 09:39 Glucotrol Xl PO 2.5 mg BID ANTHONY Administration Home Med 5 mg 12/31/17 10:00 Linagliptin [Tradjenta] PO DAILY [facility] Dextrose/Sodium Chloride 1,000 mls @ 80 mls/hr 12/30/17 12:00 12/31/17 02:40 Dextrose 5%/0.45% Ns 1000 Ml IV 80 mls/hr .[id number] ANTHONY Administration Insulin Human Regular 0 unit 12/30/17 16:30 12/31/17 07:51 Novolin R SC 2 u ACHS ANTHONY Administration Protocol Losartan Potassium 50 mg 12/31/17 10:00 12/31/17 09:38 Cozaar PO 50 mg DAILY ANTHONY Administration Metformin HCl 500 mg 12/30/17 18:00 12/31/17 09:35 Glucophage PO 500 mg BID ANTHONY Administration Nitroglycerin 1 ea 12/31/17 08:01 Nitro-Bid 2% Oint TOP PRN PRN hypertension Oxycodone/Acetaminophen 1 tab 12/30/17 11:55 Percocet 5/325 Mg Tab PO 01/02/18 11:56 Q4H PRN Pain, moderate (4-7) Rosuvastatin Calcium 20 mg 12/30/17 22:00 12/30/17 21:41 Crestor PO 20 mg HS ANTHONY Administration Spironolactone 25 mg 12/31/17 10:00 12/31/17 09:37 Aldactone PO 25 mg DAILY ANTHONY Administration Sucralfate 1 gm 12/30/17 22:00 12/30/17 21:41 Carafate Tab PO 1 gm HS ANTHONY Administration - Patient Studies Lab Studies: Lab Studies 12/31/17 12/31/17 12/31/17 Range/Units 11:38 07:13 06:20 WBC (4.8-10.8) K/uL RBC (3.80-5.20) Mil/uL Hgb (11.0-16.0) g/dL Hct (34.0-47.0) % MCV (81.0-99.0) fL MCH (27.0-31.0) pg MCHC (33.0-37.0) g/dL RDW (11.5-14.5) % Plt Count (130-400) K/uL MPV (7.2-11.7) fL Neut % (Auto) (50.0-75.0) % Lymph % (Auto) (20.0-40.0) % [place] % (Auto) (0.0-10.0) % Eos % (Auto) (0.0-4.0) % Baso % (Auto) (0.0-2.0) % Neut # (Auto) (1.8-7.0) K/uL Lymph # (Auto) (1.0-4.3) K/uL [place] # (Auto) (0.0-0.8) K/uL Eos # (Auto) (0.0-0.7) K/uL Baso # (Auto) (0.0-0.2) K/uL Sodium 137 (132-148) mmol/L Potassium 4.5 (3.6-5.2) mmol/L Chloride 104 (98-107) mmol/L Carbon Dioxide 25 (22-30) mmol/L Anion Gap 13 (10-20) BUN 21 H (7-17) mg/dL Creatinine 1.3 H (0.7-1.2) mg/dL Est GFR ( Amer) 48 Est GFR (Non-Af Amer) 39 POC Glucose (mg/dL) 188 H 195 H (65-110) mg/dL Random Glucose 152 H (65-105) mg/dL Calcium 8.4 L (8.6-10.4) mg/dl Phosphorus 3.2 (2.5-4.5) mg/dL Magnesium 2.1 (1.6-2.3) mg/dL Total Bilirubin 0.2 (0.2-1.3) mg/dL AST 37 H (14-36) U/L ALT 32 (9-52) U/L Alkaline Phosphatase 63 (38-126) U/L Total Protein 5.9 L (6.3-8.3) g/dL Albumin 3.3 L (3.5-5.0) g/dL Globulin 2.6 (2.2-3.9) gm/dL Albumin/Globulin Ratio 1.3 (1.0-2.1) 12/31/17 12/30/17 12/30/17 Range/Units 06:20 21:21 16:19 WBC 9.4 D (4.8-10.8) K/uL RBC 2.83 L (3.80-5.20) Mil/uL Hgb 9.0 L (11.0-16.0) g/dL Hct 26.5 L (34.0-47.0) % MCV 93.6 (81.0-99.0) fL MCH 32.0 H (27.0-31.0) pg MCHC 34.2 (33.0-37.0) g/dL RDW 14.0 (11.5-14.5) % Plt Count 175 (130-400) K/uL MPV 9.0 (7.2-11.7) fL Neut % (Auto) 74.4 (50.0-75.0) % Lymph % (Auto) 17.4 L (20.0-40.0) % [place] % (Auto) 7.6 (0.0-10.0) % Eos % (Auto) 0.3 (0.0-4.0) % Baso % (Auto) 0.3 (0.0-2.0) % Neut # (Auto) 7.0 (1.8-7.0) K/uL Lymph # (Auto) 1.6 (1.0-4.3) K/uL [place] # (Auto) 0.7 (0.0-0.8) K/uL Eos # (Auto) 0.0 (0.0-0.7) K/uL Baso # (Auto) 0.0 (0.0-0.2) K/uL Sodium (132-148) mmol/L Potassium (3.6-5.2) mmol/L Chloride (98-107) mmol/L Carbon Dioxide (22-30) mmol/L Anion Gap (10-20) BUN (7-17) mg/dL Creatinine (0.7-1.2) mg/dL Est GFR ( Amer) Est GFR (Non-Af Amer) POC Glucose (mg/dL) 198 H 226 H (65-110) mg/dL Random Glucose (65-105) mg/dL Calcium (8.6-10.4) mg/dl Phosphorus (2.5-4.5) mg/dL Magnesium (1.6-2.3) mg/dL Total Bilirubin (0.2-1.3) mg/dL AST (14-36) U/L ALT (9-52) U/L Alkaline Phosphatase (38-126) U/L Total Protein (6.3-8.3) g/dL Albumin (3.5-5.0) g/dL Globulin (2.2-3.9) gm/dL Albumin/Globulin Ratio (1.0-2.1) 12/30/ Range/Units 12:06 WBC (4.8-10.8) K/uL RBC (3.80-5.20) Mil/uL Hgb (11.0-16.0) g/dL Hct (34.0-47.0) % MCV (81.0-99.0) fL MCH (27.0-31.0) pg MCHC (33.0-37.0) g/dL RDW (11.5-14.5) % Plt Count (130-400) K/uL MPV (7.2-11.7) fL Neut % (Auto) (50.0-75.0) % Lymph % (Auto) (20.0-40.0) % [place] % (Auto) (0.0-10.0) % Eos % (Auto) (0.0-4.0) % Baso % (Auto) (0.0-2.0) % Neut # (Auto) (1.8-7.0) K/uL Lymph # (Auto) (1.0-4.3) K/uL [place] # (Auto) (0.0-0.8) K/uL Eos # (Auto) (0.0-0.7) K/uL Baso # (Auto) (0.0-0.2) K/uL Sodium (132-148) mmol/L Potassium (3.6-5.2) mmol/L Chloride (98-107) mmol/L Carbon Dioxide (22-30) mmol/L Anion Gap (10-20) BUN (7-17) mg/dL Creatinine (0.7-1.2) mg/dL Est GFR ( Amer) Est GFR (Non-Af Amer) POC Glucose (mg/dL) 334 H (65-110) mg/dL Random Glucose (65-105) mg/dL Calcium (8.6-10.4) mg/dl Phosphorus (2.5-4.5) mg/dL Magnesium (1.6-2.3) mg/dL Total Bilirubin (0.2-1.3) mg/dL AST (14-36) U/L ALT (9-52) U/L Alkaline Phosphatase (38-126) U/L Total Protein (6.3-8.3) g/dL Albumin (3.5-5.0) g/dL Globulin (2.2-3.9) gm/dL Albumin/Globulin Ratio (1.0-2.1) Laboratory Results - last 24 hr 12/30/17 12/30/17 12/30/17 12:06 16:19 21:21 WBC RBC Hgb Hct MCV MCH MCHC RDW Plt Count MPV Neut % (Auto) Lymph % (Auto) [place] % (Auto) Eos % (Auto) Baso % (Auto) Neut # (Auto) Lymph # (Auto) [place] # (Auto) Eos # (Auto) Baso # (Auto) Sodium Potassium Chloride Carbon Dioxide Anion Gap BUN Creatinine Est GFR ( Amer) Est GFR (Non-Af Amer) POC Glucose (mg/dL) 334 H 226 H 198 H Random Glucose Calcium Phosphorus Magnesium Total Bilirubin AST ALT Alkaline Phosphatase Total Protein Albumin Globulin Albumin/Globulin Ratio 12/31/17 12/31/17 12/31/17 06:20 06:20 07:13 WBC 9.4 D RBC 2.83 L Hgb 9.0 L Hct 26.5 L MCV 93.6 MCH 32.0 H MCHC 34.2 RDW 14.0 Plt Count 175 MPV 9.0 Neut % (Auto) 74.4 Lymph % (Auto) 17.4 L [place] % (Auto) 7.6 Eos % (Auto) 0.3 Baso % (Auto) 0.3 Neut # (Auto) 7.0 Lymph # (Auto) 1.6 [place] # (Auto) 0.7 Eos # (Auto) 0.0 Baso # (Auto) 0.0 Sodium 137 Potassium 4.5 Chloride 104 Carbon Dioxide 25 Anion Gap 13 BUN 21 H Creatinine 1.3 H Est GFR ( Amer) 48 Est GFR (Non-Af Amer) 39 POC Glucose (mg/dL) 195 H Random Glucose 152 H Calcium 8.4 L Phosphorus 3.2 Magnesium 2.1 Total Bilirubin 0.2 AST 37 H ALT 32 Alkaline Phosphatase 63 Total Protein 5.9 L Albumin 3.3 L Globulin 2.6 Albumin/Globulin Ratio 1.3 12/31/17 11:38 WBC RBC Hgb Hct MCV MCH MCHC RDW Plt Count MPV Neut % (Auto) Lymph % (Auto) [place] % (Auto) Eos % (Auto) Baso % (Auto) Neut # (Auto) Lymph # (Auto) [place] # (Auto) Eos # (Auto) Baso # (Auto) Sodium Potassium Chloride Carbon Dioxide Anion Gap BUN Creatinine Est GFR ( Amer) Est GFR (Non-Af Amer) POC Glucose (mg/dL) 188 H Random Glucose Calcium Phosphorus Magnesium Total Bilirubin AST ALT Alkaline Phosphatase Total Protein Albumin Globulin Albumin/Globulin Ratio Fingerstick Blood Sugar Results: 195 Review of Systems - Review of Systems All systems: reviewed and no additional remarkable complaints except (as per HPi ) Critical Care Progress Note - Prophylaxis GI Prophylaxis GI: Pepsid - Nutrition Nutrition: Nutrition Category Date Time Status Renal Diet [DIET] Diets 12/31/17 Lunch Active Assessment/Plan - Assessment and Plan (Free Text) Assessment: This is an 82 year old wallisian speaking female with PMHx of CKD, CHF, HTN, hypercholesterolemia, gastritis, right carotid stenosis who is s/p right carotid carotid endarterectomy by vascular surgery. Pt is in the ICU for neurological and cardiovascular monitoring. Plan: Neuro: - monitor for mental status changes - pt is AAOx3 - neurochecks q1h - percocet for pain as per vascular surgery Cardio: - maintain map>65 mmHg - s/p right endarterectomy - continue home carvedilol, rosuvastatin, losartan, spironolactone, lasix - NTG paste 1 inch (prn SBP over 180mmHg) as per vasc surgery - asa, plavix as per vasc surgery - vascular surgery recommends continuing current management, with possible discharge tonight or tomorrow morning Pulm: - maintain spo2>92% - NC prn GI: - Renal diet as per vasc surgery - continue home carafate, colace as per vasc surgery - pepcid Renal: - pt has ckd at baseline - d5 1/2 NS as per vasc surgery - maintain euvolemia Endo: - maintain euglycemia - accucheck achs - ISS medium - continue home glipizide, metformin Heme: - H/h is stable - continue home b12, folate - scds for vte ppx ID: - no signs of infectious etiology PPX: pepcid, scds Dispo: Pt will continue to be monitored in the ICU; OOB to chair Case was reviewed and discussed with attending physician, Dr. Amor Bustillos <Mc Bustillostan M - Last Filed: 12/31/17 16:57> CCU Objective - Vital Signs / Intake & Output Vital Signs (Last 4 hours): Vital Signs Temp Pulse Resp BP Pulse Ox 12/31/17 16:00 97.6 F 98 12/31/17 15:00 59 L 17 155/45 H 98 12/31/17 14:58 65 162/50 H 97 12/31/17 14:30 57 L 12 132/46 L 99 12/31/17 14:29 58 L 12 96 12/31/17 14:02 70 19 121/101 H 98 12/31/17 14:00 70 15 12/31/17 13:01 67 17 209/67 H 12/31/17 13:00 65 16 Intake and Output (Last 8hrs): Intake & Output 12/31/17 12/31/17 12/31/17 06:59 14:59 22:59 Intake Total 740 1120 180 Output Total 500 700 0 Balance 240 420 180 Weight 162 lb Intake: Intake, IV Amount 640 400 Right Antecubital 640 400 Oral 100 720 180 Output: Urine 500 700 0 Urine, Voided 500 700 0 Other: # Voids Urine, Voided 1 - Patient Studies Lab Studies: Lab Studies 12/31/17 12/31/17 12/31/17 Range/Units 11:38 07:13 06:20 WBC (4.8-10.8) K/uL RBC (3.80-5.20) Mil/uL Hgb (11.0-16.0) g/dL Hct (34.0-47.0) % MCV (81.0-99.0) fL MCH (27.0-31.0) pg MCHC (33.0-37.0) g/dL RDW (11.5-14.5) % Plt Count (130-400) K/uL MPV (7.2-11.7) fL Neut % (Auto) (50.0-75.0) % Lymph % (Auto) (20.0-40.0) % [place] % (Auto) (0.0-10.0) % Eos % (Auto) (0.0-4.0) % Baso % (Auto) (0.0-2.0) % Neut # (Auto) (1.8-7.0) K/uL Lymph # (Auto) (1.0-4.3) K/uL [place] # (Auto) (0.0-0.8) K/uL Eos # (Auto) (0.0-0.7) K/uL Baso # (Auto) (0.0-0.2) K/uL Sodium 137 (132-148) mmol/L Potassium 4.5 (3.6-5.2) mmol/L Chloride 104 (98-107) mmol/L Carbon Dioxide 25 (22-30) mmol/L Anion Gap 13 (10-20) BUN 21 H (7-17) mg/dL Creatinine 1.3 H (0.7-1.2) mg/dL Est GFR ( Amer) 48 Est GFR (Non-Af Amer) 39 POC Glucose (mg/dL) 188 H 195 H (65-110) mg/dL Random Glucose 152 H (65-105) mg/dL Calcium 8.4 L (8.6-10.4) mg/dl Phosphorus 3.2 (2.5-4.5) mg/dL Magnesium 2.1 (1.6-2.3) mg/dL Total Bilirubin 0.2 (0.2-1.3) mg/dL AST 37 H (14-36) U/L ALT 32 (9-52) U/L Alkaline Phosphatase 63 (38-126) U/L Total Protein 5.9 L (6.3-8.3) g/dL Albumin 3.3 L (3.5-5.0) g/dL Globulin 2.6 (2.2-3.9) gm/dL Albumin/Globulin Ratio 1.3 (1.0-2.1) 12/31/17 12/30/17 12/30/17 Range/Units 06:20 21:21 16:19 WBC 9.4 D (4.8-10.8) K/uL RBC 2.83 L (3.80-5.20) Mil/uL Hgb 9.0 L (11.0-16.0) g/dL Hct 26.5 L (34.0-47.0) % MCV 93.6 (81.0-99.0) fL MCH 32.0 H (27.0-31.0) pg MCHC 34.2 (33.0-37.0) g/dL RDW 14.0 (11.5-14.5) % Plt Count 175 (130-400) K/uL MPV 9.0 (7.2-11.7) fL Neut % (Auto) 74.4 (50.0-75.0) % Lymph % (Auto) 17.4 L (20.0-40.0) % [place] % (Auto) 7.6 (0.0-10.0) % Eos % (Auto) 0.3 (0.0-4.0) % Baso % (Auto) 0.3 (0.0-2.0) % Neut # (Auto) 7.0 (1.8-7.0) K/uL Lymph # (Auto) 1.6 (1.0-4.3) K/uL [place] # (Auto) 0.7 (0.0-0.8) K/uL Eos # (Auto) 0.0 (0.0-0.7) K/uL Baso # (Auto) 0.0 (0.0-0.2) K/uL Sodium (132-148) mmol/L Potassium (3.6-5.2) mmol/L Chloride (98-107) mmol/L Carbon Dioxide (22-30) mmol/L Anion Gap (10-20) BUN (7-17) mg/dL Creatinine (0.7-1.2) mg/dL Est GFR ( Amer) Est GFR (Non-Af Amer) POC Glucose (mg/dL) 198 H 226 H (65-110) mg/dL Random Glucose (65-105) mg/dL Calcium (8.6-10.4) mg/dl Phosphorus (2.5-4.5) mg/dL Magnesium (1.6-2.3) mg/dL Total Bilirubin (0.2-1.3) mg/dL AST (14-36) U/L ALT (9-52) U/L Alkaline Phosphatase (38-126) U/L Total Protein (6.3-8.3) g/dL Albumin (3.5-5.0) g/dL Globulin (2.2-3.9) gm/dL Albumin/Globulin Ratio (1.0-2.1) Laboratory Results - last 24 hr 12/30/17 12/30/17 12/31/17 16:19 21:21 06:20 WBC 9.4 D RBC 2.83 L Hgb 9.0 L Hct 26.5 L MCV 93.6 MCH 32.0 H MCHC 34.2 RDW 14.0 Plt Count 175 MPV 9.0 Neut % (Auto) 74.4 Lymph % (Auto) 17.4 L [place] % (Auto) 7.6 Eos % (Auto) 0.3 Baso % (Auto) 0.3 Neut # (Auto) 7.0 Lymph # (Auto) 1.6 [place] # (Auto) 0.7 Eos # (Auto) 0.0 Baso # (Auto) 0.0 Sodium Potassium Chloride Carbon Dioxide Anion Gap BUN Creatinine Est GFR ( Amer) Est GFR (Non-Af Amer) POC Glucose (mg/dL) 226 H 198 H Random Glucose Calcium Phosphorus Magnesium Total Bilirubin AST ALT Alkaline Phosphatase Total Protein Albumin Globulin Albumin/Globulin Ratio 12/31/17 12/31/17 12/31/17 06:20 07:13 11:38 WBC RBC Hgb Hct MCV MCH MCHC RDW Plt Count MPV Neut % (Auto) Lymph % (Auto) [place] % (Auto) Eos % (Auto) Baso % (Auto) Neut # (Auto) Lymph # (Auto) [place] # (Auto) Eos # (Auto) Baso # (Auto) Sodium 137 Potassium 4.5 Chloride 104 Carbon Dioxide 25 Anion Gap 13 BUN 21 H Creatinine 1.3 H Est GFR ( Amer) 48 Est GFR (Non-Af Amer) 39 POC Glucose (mg/dL) 195 H 188 H Random Glucose 152 H Calcium 8.4 L Phosphorus 3.2 Magnesium 2.1 Total Bilirubin 0.2 AST 37 H ALT 32 Alkaline Phosphatase 63 Total Protein 5.9 L Albumin 3.3 L Globulin 2.6 Albumin/Globulin Ratio 1.3 Critical Care Progress Note - Nutrition Nutrition: Nutrition Category Date Time Status Renal Diet [DIET] Diets 12/31/17 Lunch Active Assessment/Plan - Assessment and Plan (Free Text) Assessment: Above patient seen and examined with above resident. PAtient with h/o HTN undergoes CEA. PAtietn post op days remains hemodynamically stable. Patient to be restarted on home anti-hypertensive medications. -stop IVF as salt in IVF can also contribute to HTN -Dressing reveals no gross bleeding. -Vascular team to manage start antiplatelets in light of surgeon's determination of hemostasis. - - Date & Time Date: 12/31/17 Time: 13:00
[2017-12-31 15:33] VITALS: BP 155/45; PULSE 59; RESP 17; O2SAT 98
[2017-12-31 16:10] VITALS: TEMP 97.6
== END 2017-12-31 16:25 | disposition home or self-care (01) | DRG 38 ==
LOC: C.9S 06:33 → C.9I 11:05
PROVIDERS: ADMIT Surgery Vascular Surgery; ATTEND Surgery Vascular Surgery
PROC: 03CK0ZZ Extirpation of Matter from Right Internal Carotid Artery, Open Approach (ICD-10-PCS; principal; 2017-12-30 07:45)
DX: I65.21 Occlusion and stenosis of right carotid artery (principal); I42.9 Cardiomyopathy, unspecified; I13.0 Hypertensive heart and chronic kidney disease with heart failure and stage 1 through stage 4 chronic kidney disease, or unspecified chronic kidney disease; J44.9 Chronic obstructive pulmonary disease, unspecified; N18.9 Chronic kidney disease, unspecified; E11.22 Type 2 diabetes mellitus with diabetic chronic kidney disease; E11.51 Type 2 diabetes mellitus with diabetic peripheral angiopathy without gangrene; I25.10 Atherosclerotic heart disease of native coronary artery without angina pectoris; I50.9 Heart failure, unspecified; E78.00 Pure hypercholesterolemia, unspecified; E78.5 Hyperlipidemia, unspecified; K29.70 Gastritis, unspecified, without bleeding; H40.9 Unspecified glaucoma; Z85.3 Personal history of malignant neoplasm of breast; Z90.12 Acquired absence of left breast and nipple; Z86.73 Personal history of transient ischemic attack (TIA), and cerebral infarction without residual deficits; Z87.01 Personal history of pneumonia (recurrent); Z79.84 Long term (current) use of oral hypoglycemic drugs